=== PATIENT | male | born 1955 | race Caucasian/White ===

== ENCOUNTER 2016-08-05 22:52 | Inpatient (IN) | payer OTHER ==
[~2016-08-05] VITALS: Ht 152.4 cm; Wt 56.9 kg
[~2016-08-05 22:52] MED LIST: ALBU8I INH; ATOR40TA49 PO; DILT31TA PO; FURO20 PO; GLUCTAB PO; LISI-360 PO; MELO15TA2 PO; PRIL40CA PO
[2016-08-05 22:54] VITALS: BP 179/87; PULSE 82; RESP 16; TEMP 98.1; O2SAT 97
[2016-08-06] VITALS (12 sets, daily range): BP systolic 131–201; BP diastolic 69–95; PULSE 70–100; RESP 16–20; TEMP 97.1–98.7; O2SAT 88–100
[2016-08-06] MEDS ORDERED: HYDR-3516 PO (02:26)
[2016-08-06] MEDS ORDERED: LISI10TA3 PO (02:26)
[2016-08-06] MEDS ORDERED: MELO-1 PO (02:26)
[2016-08-06] MEDS ORDERED: DILT30TA PO (02:26)
[2016-08-06] MEDS ORDERED: METF500T PO (02:26)
[2016-08-06] MEDS ORDERED: OMEP40CA2 PO (02:26)
[2016-08-06] MEDS ORDERED: FURO20TA PO (02:26)
[2016-08-06] MEDS ORDERED: ATOR40TA16 PO (02:26)
[2016-08-06] MEDS ORDERED: SODIUM CHLORIDE 0.9% FLUSH 10 ML FLUSH IV FLUSH PRN (03:00)
[2016-08-06] MEDS ORDERED: ONDANSETRON HCL 4 MG/2 ML VIAL IVP ONE (03:00)
[2016-08-06] MEDS ORDERED: HYDROmorphone HCL PF 1 MG/ML VIAL IVS ONE (03:00)
[2016-08-06] MEDS: SODIUM CHLOR 0.9% 1000 ML INJ 1,000 ML IV SCH ×4 (03:13→20:15)
[2016-08-06 03:21] LABS: AUTOMATED NEUTROPHIL # 6.9 TH/MM3 (1.8-7.7); BASOPHIL % 0.6 % (0.0-2.0); EOSINOPHIL # 0.1 TH/MM3 (0-0.4); EOSINOPHIL % 0.8 % (0.0-4.0); HEMATOCRIT 36.1 % (39.0-51.0); HEMO FLAGS DIFF FINAL; LYMPH % 8.2 % (9.0-44.0); LYMPHOCYTE # 0.7 TH/MM3 (1.0-4.8); MEAN CELL VOLUME 88.9 FL (80.0-100.0); MEAN CORPUSCULAR HEMOGLOBIN 29.8 PG (27.0-34.0); MEAN CORPUSCULAR HGB CONC 33.5 % (32.0-36.0); MONO % 5.4 % (0.0-8.0); PLATELET COUNT 243 TH/MM3 (150-450); RED BLOOD COUNT 4.07 MIL/MM3 (4.50-5.90); RED CELL DISTRIBUTION WIDTH 13.4 % (11.6-17.2); WHITE BLOOD COUNT 8.1 TH/MM3 (4.0-11.0)
--- NOTE | 2016-08-06 03:34 | RADRPT ---
EXAM DATE/TIME: 08/06/2016 03:16 [facility] COMPARISON: No previous studies available for comparison. INDICATIONS : Diffuse abdominal pain. ORAL CONTRAST: No oral contrast ingested. RADIATION DOSE: 6.14 CTDIvol (mGy) MEDICAL HISTORY : Congestive heart failure. Chronic obstructive pulmonary disease. Gastroesophageal reflux disease.[place] rectal cancer. Diabetes. SURGICAL HISTORY : Discectomy. Bowel resection. ENCOUNTER: Initial ACUITY: 1 day PAIN SCALE: 6/10 LOCATION: Bilateral abdomen TECHNIQUE: Volumetric scanning of the abdomen and pelvis was performed. Using automated exposure control and ad justment of the mA and/or kV according to patient size, radiation dose was kept as low as reasonably achievable to obtain optimal diagnostic quality images. FINDINGS: LOWER LUNGS: The visualized lower lungs are clear. LIVER: Homogeneous density without lesion. There is no dilation of the biliary tree. No calcified gallston es. SPLEEN: Normal size without lesion. PANCREAS: Within normal limits. KIDNEYS: Normal in size and shape. There is no mass, stone, or hydronephrosis on the left. Nonobstructing 2-3 mm calculus upper pole right kidney. No hydronephrosis on the right. ADRENAL GLANDS: Within normal limits. VASCULAR: There is no aortic aneurysm. BOWEL/MESENTERY: Scattered diverticulosis of the descending and sigmoid colon without diverticulitis. There is wall th ickening of some small bowel loops within the upper abdomen with some inflammatory changes. Anastomot ic sutures are seen within the right abdomen. There is no free intraperitoneal air or fluid. ABDOMINAL WALL: Within normal limits. RETROPERITONEUM: There is no lymphadenopathy. BLADDER: No wall thickening or mass. REPRODUCTIVE: Calcification of prostate gland and seminal vesicles. INGUINAL: There is no lymphadenopathy or hernia. MUSCULOSKELETAL: Within normal limits for patient age. CONCLUSION: 1. Wall thickening of multiple small bowel loops with inflammatory changes. No perforation or abscess . 2. Diverticulosis of the descending and sigmoid colon without diverticulitis. 3. Punctate nonobstructing right-sided renal calculus. Hari Frances MD on August 06, 2016 at 3:29 Board Certified Radiologist. This report was verified electronically.
[2016-08-06 03:36] LABS: ALKALINE PHOSPHATASE 67 U/L (45-117); TOTAL BILIRUBIN ADULT 0.2 MG/DL (0.2-1.0)
[2016-08-06 03:42] LABS: ALT (GPT) 25 U/L (12-78); ANION GAP 5 MEQ/L (5-15); AST (GOT) 15 U/L (15-37); BLOOD UREA NITROGEN 28 MG/DL (7-18); CHLORIDE 109 MEQ/L (98-107); GLOMERULAR FILTRATION RATE 50 ML/MIN (>89); SODIUM (NA) 138 MEQ/L (136-145)
--- NOTE | 2016-08-06 03:47 | PD ---
HPI Chief Complaint: Abdominal Pain Time Seen by Provider: 02:51 Travel History International Travel<30 days: No Contact w/Intl Traveler<30days: No Traveled to known affect area: No History of Present Illness HPI Patient 61 years old. He complains of abdominal pain for about 1 day. It is constant. It has a sharp quality. There has been nausea. No vomiting. No diarrhea. He denies fever. His appetite has been decreased. 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 He took Dulcolax which made no difference. He states he has had a bowel movement in the last day, a couple. He denies flatus. He is a history of colon cancer. He reports his most recent colonoscopy/upper GI was normal. PFS Past Medical History Asthma: No Blood Disorders: No Anxiety: No Depression: Yes Heart Rhythm Problems: No Cancer: Yes (COLON CA) Cardiac Catheterization: No Cardiovascular Problems: Yes (CHF) High Cholesterol: Yes Chemotherapy: No Chest Pain: No Congestive Heart Failure: Yes COPD: Yes Diabetes: Yes Endocrine: No Gastrointestinal Disorders: Yes (HX OF COLON CANCER) GERD: Yes Genitourinary: No Hypertension: Yes Neurologic: No Reproductive: No Respiratory: Yes (COPD) Radiation Therapy: No Sleep Apnea: No Thyroid Disease: No Influenza Vaccination: No Past Surgical History Abdominal Surgery: Yes (bowel resection 2000) Body Medical Devices: RIGHT KNEE RANDY Family History Family Myocardial Infarction: Yes Social History Alcohol Use: No Tobacco Use: No Substance Use: No Allergies-Medications (Allergen,Severity, Reaction): Coded Allergies: Contrast Media (Verified Allergy, Severe, 08/06/16) Iohexol (OMNIPAQUE) (Unverified Allergy, Severe, 08/06/16) Morphine (Verified Allergy, Severe, 08/06/16) Reported Meds & Prescriptions Reported Meds & Active Scripts Active Reported Hydrocodone-Acetaminophen 5-325 mg Tab 1 Tab PO Q6H PRN Omeprazole 40 Mg Cap 40 Mg PO DAILY Atorvastatin (Atorvastatin Calcium) 40 Mg Tab 40 Mg PO HS Diltiazem (Diltiazem HCl) 30 Mg Tab 30 Mg PO TID Lisinopril 10 Mg Tab 10 Mg PO DAILY Furosemide 20 Mg Tab 20 Mg PO DAILY Metformin (Metformin HCl) 500 Mg Tab 500 Mg PO DAILY With a meal Meloxicam 15 Mg Tab 15 Mg PO DAILY Review of Systems Except as stated in HPI: all other systems reviewed are Neg Physical Exam Narrative GENERAL: 61-year-old male pleasant mild distress SKIN: Focused skin assessment warm/dry. HEAD: Atraumatic. Normocephalic. EYES: Pupils equal and round. No scleral icterus. No injection or drainage. ENT: No nasal bleeding or discharge. Mucous membranes pink and moist. NECK: Trachea midline. No JVD. CARDIOVASCULAR: Regular rate and rhythm. No murmur appreciated. RESPIRATORY: No accessory muscle use. Clear to auscultation. Breath sounds equal bilaterally. GASTROINTESTINAL: Diffuse tenderness. Minimal distention in the epigastrium. MUSCULOSKELETAL: No obvious deformities. No clubbing. No cyanosis. No edema. NEUROLOGICAL: Awake and alert. No obvious cranial nerve deficits. Motor grossly within normal limits. Normal speech. PSYCHIATRIC: Appropriate mood and affect; insight and judgment normal. Data Data Last Documented VS Vital Signs Date Time Temp Pulse Resp B/P Pulse Ox O2 Delivery O2 Flow Rate FiO2 08/06/16 02:27 84 16 201/95 99 Room Air 08/05/16 22:54 98.1 Vital signs reviewed Orders Complete Blood Count With Diff (08/06/16 02:58) Comprehensive Metabolic Panel (08/06/16 02:58) Lipase (08/06/16 02:58) Ct Abd/Pel W/O Iv Contrast (08/06/16 02:58) Iv Access Insert/Monitor (08/06/16 02:58) Ecg Monitoring (08/06/16 02:58) Oximetry (08/06/16 02:58) Ondansetron Inj (Zofran Inj) (08/06/16 03:00) Sodium Chlor 0.9% 1000 Ml Inj (Ns 1000 M (08/06/16 02:58) Sodium Chloride 0.9% Flush (Ns Flush) (08/06/16 03:00) Hydromorphone Pf Inj (Dilaudid Pf Inj) (08/06/16 03:00) Calcium Gluconate Inj (Calcium Gluconate (08/06/16 04:00) Insulin Human Regular Inj (Novolin R Inj (08/06/16 04:00) Dextrose 50% In Henrry (Vial) Inj (D50w (Vi (08/06/16 04:00) Sodium Bicarbonate 8.4% Inj (Sodium Bica (08/06/16 04:00) Sodium Polysty Sulfate Liq (Kayexalate L (08/06/16 04:00) Electrocardiogram (08/06/16 ) Piperacil-Tazo 3.375 Gm Premix (Zosyn 3. (08/06/16 04:00) Admit Order (Ed Use Only) (08/06/16 04:12) Labs Laboratory Tests Test 08/06/16 03:13 White Blood Count 8.1 TH/MM3 Red Blood Count 4.07 MIL/MM3 Hemoglobin 12.1 GM/DL Hematocrit 36.1 % Mean Corpuscular Volume 88.9 FL Mean Corpuscular Hemoglobin 29.8 PG Mean Corpuscular Hemoglobin 33.5 % Concent Red Cell Distribution Width 13.4 % Platelet Count 243 TH/MM3 Mean Platelet Volume 7.3 FL Neutrophils (%) (Auto) 85.0 % Lymphocytes (%) (Auto) 8.2 % Monocytes (%) (Auto) 5.4 % Eosinophils (%) (Auto) 0.8 % Basophils (%) (Auto) 0.6 % Neutrophils # (Auto) 6.9 TH/MM3 Lymphocytes # (Auto) 0.7 TH/MM3 Monocytes # (Auto) 0.4 TH/MM3 Eosinophils # (Auto) 0.1 TH/MM3 Basophils # (Auto) 0.0 TH/MM3 CBC Comment DIFF FINAL Differential Comment Sodium Level 138 MEQ/L Potassium Level 6.0 MEQ/L Chloride Level 109 MEQ/L Carbon Dioxide Level 24.0 MEQ/L Anion Gap 5 MEQ/L Blood Urea Nitrogen 28 MG/DL Creatinine 1.43 MG/DL Estimat Glomerular Filtration 50 ML/MIN Rate Random Glucose 143 MG/DL Calcium Level 9.3 MG/DL Total Bilirubin 0.2 MG/DL Aspartate Amino Transf 15 U/L (AST/SGOT) Alanine Aminotransferase 25 U/L (ALT/SGPT) Alkaline Phosphatase 67 U/L Total Protein 6.7 GM/DL Albumin 3.4 GM/DL Lipase 223 U/L [facility] Medical Decision Making Medical Screen Exam Complete: Yes Emergency Medical Condition: Yes Medical Record Reviewed: Yes Differential Diagnosis Constipation, Gastritis, Acute Cholecystitis, Biliary Colic, Pancreatitis, [place] , Hepatitis, Bowel Obstruction, Cystitis, Mesenteric Ischemia, AAA, Appendicitis , Renal Stone/Hydronephrosis, GERD, perforated viscous Narrative Course CBC & BMP Diagram 08/06/16 03:13 LFTs normal Lipase normal Last 24 hours Impressions Abdomen/Pelvis CT 08/06/16 0258 Signed Impressions: Service Date/Time: Saturday, August 06, 2016 03:16 - CONCLUSION: 1. Wall thickening of multiple small bowel loops with inflammatory changes. No perforation or abscess. 2. Diverticulosis of the descending and sigmoid colon without diverticulitis. 3. Punctate nonobstructing right-sided renal calculus. Hair Frances MD Zosyn started. IV fluids. Ventral, antiemetics. Discussed with Dr. Mojica for [facility]. Diagnosis Primary Impression: Enteritis Additional Impressions: Abdominal pain Hyperkalemia Admitting Information Admitting Physician Requests: Admit Ted Lucia MD Aug 06, 2016 03:47
[2016-08-06] MEDS ORDERED: SODIUM BICARBONATE 8.4% SOLN 50 MEQ/50 ML VIAL SLOW IVP ONE (04:00)
[2016-08-06] MEDS ORDERED: CALCIUM GLUCONATE 10% 1 GM/10 ML VIAL SLOW IVP ONE (04:00)
[2016-08-06] MEDS ORDERED: DEXTROSE 50% IN WATER 50 ML VIAL(D50) IV PUSH ONE (04:00)
[2016-08-06] MEDS ORDERED: PIPERACIL-TAZO 3.375 GM PREMIX 50 ML IV ONE (04:00)
[2016-08-06] MEDS ORDERED: SODIUM POLYSTYRENE SULFONATE SUSP 15 GM/60 ML CUP PO ONE (04:00)
[2016-08-06] MEDS ORDERED: INSULIN HUMAN REGULAR 1,000 UNITS/10 ML VIAL IV PUSH ONE (04:00)
[2016-08-06] MEDS ORDERED: SODIUM CHLORIDE 0.9% FLUSH 10 ML FLUSH IVF PRN (04:30)
[2016-08-06] MEDS ORDERED: HYDROmorphone HCL PF 1 MG/ML VIAL IV PUSH ONE (05:00)
[2016-08-06] MEDS ORDERED: ACETAMINOPHEN 325 MG TAB PO PRN (08:45)
[2016-08-06] MEDS ORDERED: ONDANSETRON HCL 4 MG/2 ML VIAL IV PRN (08:45)
[2016-08-06] MEDS: SODIUM CHLORIDE 0.9% FLUSH 10 ML FLUSH IV FLUSH SCH ×2 (09:00→20:54)
[2016-08-06] MEDS ORDERED: HYDROmorphone HCL PF 1 MG/ML VIAL IV PUSH PRN (09:45)
[2016-08-06] MEDS: DILTIAZEM HCL 30 MG TAB PO SCH ×3 (10:00→18:08)
--- NOTE | 2016-08-06 10:09 | HHI.HP ---
HPI Service [facility] Hospitalists Primary Care Physician Son Hall DO Admission Diagnosis Enteritis, HyperK, N/V Chief Complaint: Abdominal pain Travel History International Travel<30 Days: No Contact w/Intl Traveler <30 Da: No Traveled to Known Affected Are: No History of Present Illness Mr. Iglesias is a pleasant 61 y/o WM with HTN, diabetes, chronic back pain, COPD , WILL and hx of colon cancer. He presented to the ED at [facility] on 08/06/16 with complaints of intractable abdominal pain. He states that the pain began on 08/04/16, and began in the lower abdomen, cramping type pain. He states that he was able to work on Saturday but that the pain progressively worsened throughout the day. Yesterday he states that he stayed in bed most of the day because of the pain. He states that the pain seems to come in waves and has associated nausea but no vomiting. He has been having normal BMs. He took a Dulcolax yesterday thinking that he maybe had some degree of constipation and he did have a BM yesterday but that did not relieve the pain. His labs in the ED noted potassium 6.0, Cr 1.43. He was given Kayexalate in the ED. CT abdomen/ pelvis noted wall thickening of multiple small bowel loops with inflammatory changes, no perforation or abscess, diverticulosis of the descending and sigmoid colon without diverticulitis, and punctate nonobstructing right-sided renal calculus. Review of Systems Constitutional: DENIES: Fever, Weight gain, Weight loss, Chills Respiratory: DENIES: Cough, Shortness of breath Cardiovascular: DENIES: Chest pain, Palpitations Gastrointestinal: COMPLAINS OF: Abdominal pain, Nausea, DENIES: Black stools, Bloody stools, Constipation, Diarrhea, Vomiting Genitourinary: DENIES: Hematuria, Dysuria Integumentary: DENIES: Rash Neurologic: DENIES: Headache Past Family Social History Past Medical History HTN Diabetes WILL COPD Hyperlipidemia Chronic back pain Past Surgical History Partial colectomy, ascending colon in 2000 Back discectomy Knee surgeries Should arthroscopies EGD/colonoscopy on 04/09/[address] Burdick --> Short segment Barretts esophagus, acute gastritis, evidence of prior ileocolonic surgical anastomosis, grade II internal hemorrhoids, external hemorrhoids Reported Medications -Hydrocodone-Acetaminophen 5-325 mg Tab 1 Tab PO Q6H PRN -Omeprazole 40 Mg Cap 40 Mg PO DAILY -Atorvastatin (Atorvastatin Calcium) 40 Mg Tab 40 Mg PO HS -Diltiazem (Diltiazem HCl) 30 Mg Tab 30 Mg PO TID -Lisinopril 10 Mg Tab 10 Mg PO DAILY -Furosemide 20 Mg Tab 20 Mg PO DAILY -Metformin (Metformin HCl) 500 Mg Tab 500 Mg PO DAILY With a meal -Meloxicam 15 Mg Tab 15 Mg PO DAILY Allergies: Coded Allergies: Contrast Media (Verified Allergy, Severe, 08/06/16) Iohexol (OMNIPAQUE) (Unverified Allergy, Severe, 08/06/16) Morphine (Verified Allergy, Severe, 08/06/16) Family History Noncontributory Social History Hx of tobacco use Denies any alcohol or illicit drug use Pt works for an [employer] Physical Exam Vital Signs Vital Signs Date Time Temp Pulse Resp B/P Pulse Ox O2 Delivery O2 Flow Rate FiO2 08/06/16 09:27 100 Room Air 08/06/16 07:50 98.7 83 20 144/69 99 Room Air 08/06/16 06:34 100 16 131/81 100 Room Air 08/06/16 05:30 96 21 08/06/16 02:27 84 16 201/95 99 Room Air 08/05/16 22:54 98.1 82 16 179/87 97 Room Air Physical Exam GENERAL: This is a well-nourished, well-developed patient, in no apparent distress. HEENT: Atraumatic. Normocephalic. No temporal or scalp tenderness. No scleral icterus. Airway patent. NECK: Trachea midline, nontender. CARDIO: Regular. RESP: CTA ABD: +BS, firm, distended, diffusely tender. EXT: Extremities without clubbing, cyanosis, or edema. NEURO: Awake and alert. Motor and sensory grossly within normal limits. Normal speech. Laboratory Laboratory Tests Test 08/06/16 03:13 White Blood Count 8.1 Red Blood Count 4.07 Hemoglobin 12.1 Hematocrit 36.1 Mean Corpuscular Volume 88.9 Mean Corpuscular Hemoglobin 29.8 Mean Corpuscular Hemoglobin 33.5 Concent Red Cell Distribution Width 13.4 Platelet Count 243 Mean Platelet Volume 7.3 Neutrophils (%) (Auto) 85.0 Lymphocytes (%) (Auto) 8.2 Monocytes (%) (Auto) 5.4 Eosinophils (%) (Auto) 0.8 Basophils (%) (Auto) 0.6 Neutrophils # (Auto) 6.9 Lymphocytes # (Auto) 0.7 Monocytes # (Auto) 0.4 Eosinophils # (Auto) 0.1 Basophils # (Auto) 0.0 CBC Comment DIFF FINAL Differential Comment Sodium Level 138 Potassium Level 6.0 Chloride Level 109 Carbon Dioxide Level 24.0 Anion Gap 5 Blood Urea Nitrogen 28 Creatinine 1.43 Estimat Glomerular Filtration 50 Rate Random Glucose 143 Calcium Level 9.3 Total Bilirubin 0.2 Aspartate Amino Transf 15 (AST/SGOT) Alanine Aminotransferase 25 (ALT/SGPT) Alkaline Phosphatase 67 Total Protein 6.7 Albumin 3.4 Lipase 223 Result Diagram: 08/06/1631208/06/16312 Imaging Last Impressions Abdomen/Pelvis CT 08/06/16 0258 Signed Impressions: Service Date/Time: Saturday, August 06, 2016 03:16 - CONCLUSION: 1. Wall thickening of multiple small bowel loops with inflammatory changes. No perforation or abscess. 2. Diverticulosis of the descending and sigmoid colon without diverticulitis. 3. Punctate nonobstructing right-sided renal calculus. Hair Frances MD Septic Shock Reassessment Heart: Regular rate and rhythm Lungs: Clear Skin: Warm Assessment and Plan Problem List: (1) Abdominal pain Status: Acute Plan: - Pt admitted with progressively worsening abdominal pain and nausea than began on 08/04. - CT abd/pelvis W/O IV contrast (08/06) --> Wall thickening of multiple small bowel loops with inflammatory changes. No perforation or abscess. Diverticulosis of the descending and sigmoid colon without diverticulitis. Punctate nonobstructing right-sided renal calculus. - Pt denies any vomiting, diarrhea, melena, or BRBPR. - He denies any recent travel, ill contacts, or eating any unusual foods. - On examination pts abdomen is quite distended and tender throughout with minimal palpation. - He was given a dose of Zosyn in the ED and we will continue this. - Consult General surgery - IVF - Clear liquid diet as tolerated - Pain control PRN - Monitor vitals closely - Supportive care - DVT prophylaxis with SCDs (2) Enteritis Status: Acute Plan: - See above. (3) Hyperkalemia Status: Acute Plan: - Pt was noted to have a potassium of 6.0 at admission. - He was given Kayexalate in the ED - Repeat BMP today - Hold Lisinopril and Lasix today (4) Benign hypertension Status: Chronic Plan: - Cont. Cardizem - Monitor (5) Diabetes mellitus type 2, noninsulin dependent Status: Chronic Plan: - NovoLog SSI - Accu checks (6) History of colon cancer Status: Resolved Plan: - Pt had colon cancer in 2000 s/p partial colectomy - Last EGD and colonoscopy was in 03/2016 (7) Hyperlipidemia Status: Chronic Assessment and Plan Patient examined. Assessment and plan formulated with Rosario Davis PA-C. I agree with the above. Rosario Davis Aug 06, 2016 10:09 Frankie Read DO Aug 09, 2016 11:25
[2016-08-06] MEDS: PANTOPRAZOLE SOD 40 MG DELAYED RELEASE TAB PO SCH (10:21)
[2016-08-06] MEDS ORDERED: PIPERACIL-TAZO 3.375 GM PREMIX 50 ML IV SCH (11:00)
[2016-08-06] MEDS: INSULIN ASPART SUPPLEMENTAL SCALE SQ SCH ×3 (11:00→21:00)
[2016-08-06] MEDS ORDERED: ONDANSETRON HCL 4 MG/2 ML VIAL IV PUSH ONE (11:45)
[2016-08-06] MEDS: ACETAMINOPHEN/HYDROcodone 325 MG/5 MG TAB PO PRN ×2 (12:35→19:27)
[2016-08-06] MEDS ORDERED: IOHEXOL 350 MG/ML 10 ML VIAL (for RAD DIAG) IV ONE (13:49)
--- NOTE | 2016-08-06 14:17 | RADRPT ---
EXAM DATE/TIME: 08/06/2016 13:23 [facility] COMPARISON: CT ABDOMEN & PELVIS W/O CONTRAST, August 06, 2016, 3:16. INDICATIONS : Abdomen pain; evaluate for mesenteric ischemia. IV CONTRAST: 100 cc Omnipaque 350 (iohexol) IV ORAL CONTRAST: No oral contrast ingested. RADIATION DOSE: 14.70 CTDIvol (mGy) MEDICAL HISTORY : Cardiovascular disease. Hypertension. Diabetes mellitus type 2.Colon cancer. SURGICAL HISTORY : Colon resection. ENCOUNTER: Initial ACUITY: 1 day PAIN SCALE: 0/10 LOCATION: Bilateral lower quadrant TECHNIQUE: Volumetric scanning was performed using a multi-row detector CT scanner. The data was post processed with a variety of visualization algorithms including full volume maximum intensity projection, multi -planar sliding thin slab reformation, curved planar reformation, and surface rendering techniques. Using automated exposure control and adjustment of the mA and/or kV according to patient size, radiat ion dose was kept as low as reasonably achievable to obtain optimal diagnostic quality images. FINDINGS: AORTA/INFLOW: Mild scattered calcified atheromatous plaque is seen throughout the aorta and inflow vessels. No aneu rysmal change, hemodynamically significant stenosis, or dissection. The celiac, SMA, KALA, and renal a rteries are patent. OTHER STRUCTURES: There is mural thickening and stranding of the adjacent mesentery involving multiple small bowel loop s within the anterior mid abdomen and upper abdomen. No dilatation to suggest an obstructing componen t. A trace amount of free fluid adjacent to the spleen and right lobe of the liver. The colon is unre markable with the exception of a few scattered diverticuli. A 2 mm nonobstructing right renal stone. Calcifications are seen involving the central portion of the prostate gland. No discrete mass. Degene rative changes involving the hips and lumbar spine. CONCLUSION: 1. Patent mesenteric vessels. 2. Wall thickening and inflammatory change involving multiple loops of small bowel without perforatio n, abscess, or obstruction. A trace amount of ascites. 3. 2 mm nonobstructing right renal stone. Tad Hyatt Jr., MD on August 06, 2016 at 14:06 Board Certified Radiologist. This report was verified electronically.
[2016-08-06] MEDS ORDERED: DIATRIZOATE MEGLUM/DIATRIZOATE SOD 120 ML BTL (for RAD DIAG) PO ONE (17:11)
--- NOTE | 2016-08-06 17:30 | PD.CONS ---
HPI Service [facility] general surgery Consult Requested By Dr. Read Reason for Consult Abdominal pain, bowel wall thickening Primary Care Physician Son Hall, History of Present Illness This is a 69-year-old male who developed acute onset of somewhat diffuse lower abdominal pain on Saturday which was associated with nausea. This continued to worsen and Saturday was so severe he presented to the emergency department. He has not had vomiting. No recent history of diarrhea. He had bowel movements up until Saturday. The patient had a right colectomy by Dr. Fong in 2000 for colon cancer. He has never had any episodes like this before. He had a colonoscopy in 2016 which by patient report was unremarkable. On evaluation in the emergency department last night he was noted to have acute kidney injury, normal white blood count with left shift, and CT scan of the abdomen and pelvis showed wall thickening of multiple loops of small bowel. He was admitted and placed on IV antibiotics. He feels about the same today. He continues not to have any emesis. He did have 1 small episode of flatus. He was quite tender on exam and therefore Dr. Read consulted me for further evaluation. Review of Systems Constitutional: DENIES: Fever, Chills Eyes: DENIES: Eye inflammation, Eye pain Respiratory: DENIES: Cough, Shortness of breath Cardiovascular: DENIES: Chest pain Gastrointestinal: COMPLAINS OF: Abdominal pain, Nausea, DENIES: Diarrhea Integumentary: DENIES: Pruritus, Rash Neurologic: DENIES: Paresthesias, Seizures Past Family Social History Past Medical History Hypertension Diabetes mellitus Chronic back pain COPD Obstructive sleep apnea Colon cancer in 2000 Past Surgical History Ascending colectomy Back and knee operations Reported Medications Reported Meds & Active Scripts Active Reported Hydrocodone-Acetaminophen 5-325 mg Tab 1 Tab PO Q6H PRN Omeprazole 40 Mg Cap 40 Mg PO DAILY Atorvastatin (Atorvastatin Calcium) 40 Mg Tab 40 Mg PO HS Diltiazem (Diltiazem HCl) 30 Mg Tab 30 Mg PO TID Lisinopril 10 Mg Tab 10 Mg PO DAILY Furosemide 20 Mg Tab 20 Mg PO DAILY Metformin (Metformin HCl) 500 Mg Tab 500 Mg PO DAILY With a meal Meloxicam 15 Mg Tab 15 Mg PO DAILY Allergies: Coded Allergies: Contrast Media (Verified Allergy, Severe, 08/06/16) Iohexol (OMNIPAQUE) (Unverified Allergy, Severe, 08/06/16) Morphine (Verified Allergy, Severe, 08/06/16) Active Ordered Medications Current Medications Medications (Trade) Dose Ordered Sig/Adela Route Start Time Stop Time Status Last Admin (NS Flush) 2 ml BID IV FLUSH 08/06/16 09:00 (NS Flush) 2 ml UNSCH PRN IVF 08/06/16 04:30 (Tylenol) 650 mg Q4H PRN PO 08/06/16 08:45 (Zofran Inj) 4 mg Q6H PRN IV 08/06/16 08:45 (Lipitor) 40 mg HS PO 08/06/16 21:00 (Cardizem) 30 mg TID PO 08/06/16 10:00 08/06/16 13:43 (Protonix) 40 mg DAILY PO 08/06/16 10:00 08/06/16 10:21 ([place] 5-325 Mg) 1 tab Q4H PRN PO 08/06/16 09:45 ([place] 5-325 Mg) 2 tab Q4H PRN PO 08/06/16 09:45 08/06/16 12:35 Hydromorphone HCl 0.5 mg 0.5 mg Q4H PRN IV PUSH 08/06/16 09:45 08/06/16 10:20 Sodium Chloride 1,000 ml @ 100 mls/hr Q10H IV 08/06/16 10:15 08/06/16 10:15 Metronidazole 100 ml @ 100 mls/hr Q6H IV 08/06/16 18:00 (Levaquin 750 Mg Premix Inj) 150 ml @ 100 mls/hr Q48H IV 08/06/16 17:00 Family History Noncontributory Social History No alcohol or drug use. Physical Exam Vital Signs Vital Signs Date Time Temp Pulse Resp B/P Pulse Ox O2 Delivery O2 Flow Rate FiO2 08/06/16 13:01 80 20 150/78 96 Room Air 08/06/16 12:07 81 20 139/71 100 Room Air 08/06/16 10:28 86 20 140/76 88 Room Air 08/06/16 09:35 76 20 143/78 96 Room Air 08/06/16 09:27 100 Room Air 08/06/16 07:50 98.7 83 20 144/69 99 Room Air 08/06/16 06:34 100 16 131/81 100 Room Air 08/06/16 05:30 96 21 08/06/16 02:27 84 16 201/95 99 Room Air 08/05/16 22:54 98.1 82 16 179/87 97 Room Air Physical Exam GENERAL: Awake and alert. No acute distress. Cooperative. HEAD: Normocephalic. Atraumatic. EYES: Pupils equal round and reactive to light bilaterally. No scleral icterus. ENT: Moist oral mucosa. NECK: Trachea midline. CHEST: Lungs clear to auscultation bilaterally with no wheezing or rhonchi. No respiratory distress. CARDIOVASCULAR: Regular rate and rhythm. ABDOMEN: Round. Well-healed transverse upper abdominal incision. Diffuse tenderness moderate to severe. Diffuse rebound. EXTREMITIES: No cyanosis or edema. SKIN: Warm, dry, nonjaundiced. Laboratory Laboratory Tests Test 08/06/16 03:13 White Blood Count 8.1 Red Blood Count 4.07 Hemoglobin 12.1 Hematocrit 36.1 Mean Corpuscular Volume 88.9 Mean Corpuscular Hemoglobin 29.8 Mean Corpuscular Hemoglobin 33.5 Concent Red Cell Distribution Width 13.4 Platelet Count 243 Mean Platelet Volume 7.3 Neutrophils (%) (Auto) 85.0 Lymphocytes (%) (Auto) 8.2 Monocytes (%) (Auto) 5.4 Eosinophils (%) (Auto) 0.8 Basophils (%) (Auto) 0.6 Neutrophils # (Auto) 6.9 Lymphocytes # (Auto) 0.7 Monocytes # (Auto) 0.4 Eosinophils # (Auto) 0.1 Basophils # (Auto) 0.0 CBC Comment DIFF FINAL Differential Comment Sodium Level 138 Potassium Level 6.0 Chloride Level 109 Carbon Dioxide Level 24.0 Anion Gap 5 Blood Urea Nitrogen 28 Creatinine 1.43 Estimat Glomerular Filtration 50 Rate Random Glucose 143 Calcium Level 9.3 Magnesium Level 2.1 Total Bilirubin 0.2 Aspartate Amino Transf 15 (AST/SGOT) Alanine Aminotransferase 25 (ALT/SGPT) Alkaline Phosphatase 67 Total Protein 6.7 Albumin 3.4 Lipase 223 Result Diagram: 08/06/1631208/06/16312 Imaging Last Impressions Abdomen/Pelvis CT 08/06/16 0258 Signed Impressions: Service Date/Time: Saturday, August 06, 2016 03:16 - CONCLUSION: 1. Wall thickening of multiple small bowel loops with inflammatory changes. No perforation or abscess. 2. Diverticulosis of the descending and sigmoid colon without diverticulitis. 3. Punctate nonobstructing right-sided renal calculus. Hair Frances MD Assessment and Plan Assessment and Plan 61-year-old male with abdominal pain and multiple loops of small bowel thickening on CT abdomen and pelvis. He has acute kidney injury. CTA abdomen and pelvis was performed and his vasculature is patent. I discussed the imaging findings with Dr. Larry. The patient has no vomiting but my biggest concern is a closed loop obstruction. Also possible he may have enteritis. I will order a Gastrografin small bowel follow-through to see if he is obstructed and to see if any contrast passes the area of the mid small bowel which is thickened. I changed him to Levaquin and Flagyl. Due to his physical exam I will have a low threshold for operating. We'll follow-up labs and imaging in the morning. I discussed all the findings and my thought processes with the patient he understands and agrees. Daniel Lugo MD Aug 06, 2016 17:30
[2016-08-06] MEDS: LEVOFLOXACIN 750 MG PREMIX INJ 150 ML IV SCH (17:33)
[2016-08-06] MEDS: metroNIDAZOLE 500 MG INJ 100 ML IV SCH (20:58)
[2016-08-06] MEDS: ATORVASTATIN 40 MG TAB PO SCH (20:58)
--- NOTE | 2016-08-06 22:31 | RADRPT ---
EXAM DATE/TIME: 08/06/2016 17:08 [place] COMPARISON: CT ABDOMEN & PELVIS W/O CONTRAST, August 06, 2016, 3:16. INDICATIONS : Obstruction. FLUORO TIME: 0 minutes IMAGE COUNT: 6 CONTRAST: Gastroliz IMAGING TIME(S): 15 min, 1 hr, 4 hrs MEDICAL HISTORY : None. SURGICAL HISTORY : Colon resection. ENCOUNTER: Initial ACUITY: 3 days PAIN SCORE: 10/10 LOCATION: Bilateral abdomen. FINDINGS: Initial pharmacy helper film is unremarkable without air-filled dilated loops of small or large colon. Contrast transits the small intestine in inappropriate. Timing seen within the colon approximately 1 hour aft er ingestion. No small bowel obstruction is identified on this study. The multiple diffusely thickene d loops of small intestine identified on the CT done earlier same day are not well appreciated on the small bowel series due to the limits of this study, but likely are still present. CONCLUSION: No evidence of small bowel obstruction. Multiple diffusely thickened loops of small i ntestine identified on the CT done earlier same day are not well appreciated on the small bowel serie s due to the limits of this study, but likely are still present and suggest enteritis. Simon Marino MD on August 06, 2016 at 22:24 Board Certified Radiologist. This report was verified electronically.
[2016-08-07] VITALS (8 sets, daily range): BP systolic 107–167; BP diastolic 58–85; PULSE 70–85; RESP 16–20; TEMP 97.1–98.9; O2SAT 95–99
[2016-08-07] MEDS: metroNIDAZOLE 500 MG INJ 100 ML IV SCH ×5 (00:11→23:14)
[2016-08-07] MEDS: SODIUM CHLOR 0.9% 1000 ML INJ 1,000 ML IV SCH ×2 (06:14→16:15)
[2016-08-07] MEDS: INSULIN ASPART SUPPLEMENTAL SCALE SQ SCH ×4 (06:14→20:24)
[2016-08-07 06:16] LABS: AUTOMATED NEUTROPHIL # 3.9 TH/MM3 (1.8-7.7); BASOPHIL % 0.5 % (0.0-2.0); EOSINOPHIL # 0.3 TH/MM3 (0-0.4); EOSINOPHIL % 4.6 % (0.0-4.0); HEMATOCRIT 29.2 % (39.0-51.0); HEMO FLAGS DIFF FINAL; LYMPH % 19.2 % (9.0-44.0); LYMPHOCYTE # 1.1 TH/MM3 (1.0-4.8); MEAN CELL VOLUME 88.9 FL (80.0-100.0); MEAN CORPUSCULAR HEMOGLOBIN 30.9 PG (27.0-34.0); MEAN CORPUSCULAR HGB CONC 34.8 % (32.0-36.0); MONO % 7.2 % (0.0-8.0); NEUT % 68.5 % (16.0-70.0); PLATELET COUNT 185 TH/MM3 (150-450); RED BLOOD COUNT 3.29 MIL/MM3 (4.50-5.90); RED CELL DISTRIBUTION WIDTH 13.4 % (11.6-17.2); WHITE BLOOD COUNT 5.7 TH/MM3 (4.0-11.0)
[2016-08-07] MEDS: ACETAMINOPHEN/HYDROcodone 325 MG/5 MG TAB PO PRN ×3 (06:17→23:16)
[2016-08-07 06:40] LABS: BICARBONATE 26.2 MEQ/L (21.0-32.0); MAGNESIUM 1.7 MG/DL (1.5-2.5); POTASSIUM 5.3 MEQ/L (3.5-5.1)
--- NOTE | 2016-08-07 07:48 | HHI.PR ---
Subjective Subjective Notes Multiple liquid stools after gastrograffin for small bowel follow through. No nausea. Had some clears last night. Thinks pain may be a little better- he did not take narcotics all night. Objective Vitals/I&O Vital Signs Date Time Temp Pulse Resp B/P Pulse Ox O2 Delivery O2 Flow Rate FiO2 08/07/16 04:38 97.9 83 20 138/70 96 08/06/16 13:01 Room Air 08/06/16 05:30 21 Labs Laboratory Tests Test 08/07/16 05:45 White Blood Count 5.7 Red Blood Count 3.29 Hemoglobin 10.2 Hematocrit 29.2 Mean Corpuscular Volume 88.9 Mean Corpuscular Hemoglobin 30.9 Mean Corpuscular Hemoglobin 34.8 Concent Red Cell Distribution Width 13.4 Platelet Count 185 Mean Platelet Volume 7.0 Neutrophils (%) (Auto) 68.5 Lymphocytes (%) (Auto) 19.2 Monocytes (%) (Auto) 7.2 Eosinophils (%) (Auto) 4.6 Basophils (%) (Auto) 0.5 Neutrophils # (Auto) 3.9 Lymphocytes # (Auto) 1.1 Monocytes # (Auto) 0.4 Eosinophils # (Auto) 0.3 Basophils # (Auto) 0.0 CBC Comment DIFF FINAL Differential Comment Sodium Level 141 Potassium Level 5.3 Chloride Level 109 Carbon Dioxide Level 26.2 Anion Gap 6 Blood Urea Nitrogen 13 Creatinine 1.36 Estimat Glomerular Filtration 53 Rate Random Glucose 96 Calcium Level 8.5 Magnesium Level 1.7 Radiology Last Impressions Abdomen/Pelvis CT 08/06/16 0258 Signed Impressions: Service Date/Time: Saturday, August 06, 2016 03:16 - CONCLUSION: 1. Wall thickening of multiple small bowel loops with inflammatory changes. No perforation or abscess. 2. Diverticulosis of the descending and sigmoid colon without diverticulitis. 3. Punctate nonobstructing right-sided renal calculus. Hair Frances MD Narrative Exam NAD, sleeping in bed nonlabored breathing Abd: mild distention, diffuse ttp slightly better than yesterday A/P Assessment and Plan 61 yo M with abdominal pain and mid small bowel thickening. SBFT shows transit through small bowel and having liquid BMs now, so he does not have a closed loop obstruction. Likely enteritis. Consult GI for further evaluation. Clears. ParishDaniel MD Aug 07, 2016 07:48
[2016-08-07] MEDS: SODIUM CHLORIDE 0.9% FLUSH 10 ML FLUSH IV FLUSH SCH ×2 (09:00→20:21)
[2016-08-07] MEDS: PANTOPRAZOLE SOD 40 MG DELAYED RELEASE TAB PO SCH (09:01)
[2016-08-07] MEDS: DILTIAZEM HCL 30 MG TAB PO SCH ×3 (09:01→18:39)
--- NOTE | 2016-08-07 12:50 | EKG ---
Date Performed: 08/06/2016 Time Performed: 03:55:00 PTAGE: 61 years EKG: Sinus rhythm WITH SINUS ARRHYTHMIA NORMAL ECG PREVIOUS TRACING : 01/01/2015 17.34 Compared to prior tracing no significant change DOCTOR: Carlos Dinh Interpretating Date/Time 08/07/2016 12:49:39
--- NOTE | 2016-08-07 15:15 | PD.CONS ---
HPI History of Present Illness This is a 61 year old male with a hx of colon cancer requiring a partial colectomy in 2000, who came to the ER for evaluation of abdominal pain that began on Saturday. He describes this as a lower abdominal cramping pain/ stomach. He reports that he had a constant stomach ache with intermittent cramping that came in waves. He had some nausea, but no vomiting. He denies any fevers or chills. He reports that he has been moving his bowels, but did try a Dulcolax at home to see if this helped. He reports that he had a bowel movement, but his pain did not improve. He denies any decreased appetite prior to this or weight loss. He came to the ER and Abdomen/Pelvis CT (08/06/16) revealed 1. Wall thickening of multiple small bowel loops with inflammatory changes. No perforation or abscess. 2. Diverticulosis of the descending and sigmoid colon without diverticulitis. 3. Punctate nonobstructing right-sided renal calculus. He was started on antibiotics and General Surgery was consulted for further evaluation. A CTA of the abdomen and pelvis (08/06/16)---- > patent mesenteric vessels, wall thickening and inflammatory change involving multiple loops of small bowel without perforation, abscess, or obstruction. A trace amount of ascites. 2 mm nonobstructing right renal stone. Dr. Lugo discussed this with radiology a SBFT was ordered to evaluate for a closed loop obstruction. SBFT (08/06/16) revealed No evidence of small bowel obstruction. Multiple diffusely thickened loops of small intestine identified on the CT done earlier same day are not well appreciated on the small bowel series due to the limits of this study, but likely are still present and suggest enteritis. GI was consulted for further evaluation of enteritis. He denies any sick contacts , travel, suspicious food, or antibiotics use. He denies any similar symptoms in the past. 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 There is evidence of the prior ileocolonic surgical anastomosis, retroflex views revealed internal grade 2 hemorrhoids, a digital exam was performed and revealed medium external hemorrhoids. Pathology revealed gastric antral mucosa showing mild chronic inactive gastritis, negative for intestinal metaplasia and negative for Helicobacter, distal esophagus biopsy was squamocolumnar mucosa showing mild chronic esophagitis, negative for dysplasia. Repeat colonoscopy was recommended for 5 years. (Snow Magdaleno) PFSH Past Medical History COPD Diabetes Hyperlipidemia Hypertension Colon cancer status post partial colectomy 2000 WILL Chronic back pain Past Surgical History Partial colectomy for colon cancer Left knee surgery Lower back surgery Right shoulder surgery (Snow Magdaleno) Coded Allergies: Contrast Media (Verified Allergy, Severe, 08/06/16) Iohexol (OMNIPAQUE) (Unverified Allergy, Severe, 08/06/16) Morphine (Verified Allergy, Severe, 08/06/16) Medications Allergies Coded Allergies Type Severity Reaction Last Updated Verified Contrast Media Allergy Severe 08/06/16 Yes Iohexol (OMNIPAQUE) Allergy Severe 08/06/16 No Morphine Allergy Severe 08/06/16 Yes Active Scripts Medications Dose Route/Sig Days Date Category Dose Instructions Hydrocodone-Acetaminophen 5-325 mg Tab 1 Tab PO Q6H PRN 08/06/16 Reported Omeprazole 40 Mg Cap 40 Mg PO DAILY 08/06/16 Reported Atorvastatin (Atorvastatin Calcium) 40 Mg Tab 40 Mg PO HS 08/06/16 Reported Diltiazem (Diltiazem HCl) 30 Mg Tab 30 Mg PO TID 08/06/16 Reported Lisinopril 10 Mg Tab 10 Mg PO DAILY 08/06/16 Reported Furosemide 20 Mg Tab 20 Mg PO DAILY 08/06/16 Reported Metformin (Metformin HCl) 500 Mg Tab 500 Mg PO DAILY 08/06/16 Reported With a meal Meloxicam 15 Mg Tab 15 Mg PO DAILY 08/06/16 Reported Family History Sister had ovarian cancer Father had a CVA Social History Quit alcohol use about 3 years ago Quit smoking about 13 years ago (Snow Magdaleno) Review of Systems Constitutional: COMPLAINS OF: Fatigue, DENIES: Fever, Weight loss, Chills, Change in appetite Respiratory: DENIES: Cough Cardiovascular: DENIES: Chest pain Gastrointestinal: COMPLAINS OF: Abdominal pain, Nausea, Swelling of Abdomen ( mild), DENIES: Black stools, Bloody stools, Constipation, Diarrhea, Vomiting Musculoskeletal: COMPLAINS OF: Back pain Integumentary: DENIES: Rash Psychiatric: DENIES: Confusion (Snow Magdaleno) GI Exam Vitals I&O Vital Signs Date Time Temp Pulse Resp B/P Pulse Ox O2 Delivery O2 Flow Rate FiO2 08/07/16 12:06 97.8 74 16 167/85 95 08/07/16 08:28 98.2 80 16 145/79 95 08/07/16 07:17 16 08/07/16 04:38 97.9 83 20 138/70 96 08/07/16 00:40 98.9 76 20 107/58 96 08/07/16 00:30 97 08/06/16 21:09 78 08/06/16 19:22 97.7 70 20 134/70 97 08/06/16 17:46 97.1 77 16 154/78 97 I/O 08/06/16 08/06/16 08/06/16 08/07/16 08/07/16 08/07/16 07:00 15:00 23:00 07:00 15:00 23:00 Intake Total 293 ml Output Total 100 ml 425 ml Balance 293 ml -100 ml -425 ml Intake IV Total 293 ml Output Urine Total 100 ml 425 ml Imaging Last Impressions Abdomen/Pelvis CT 08/06/16 0258 Signed Impressions: Service Date/Time: Saturday, August 06, 2016 03:16 - CONCLUSION: 1. Wall thickening of multiple small bowel loops with inflammatory changes. No perforation or abscess. 2. Diverticulosis of the descending and sigmoid colon without diverticulitis. 3. Punctate nonobstructing right-sided renal calculus. Hair Frances MD Small Bowel X-Ray 08/06/16 0000 Signed Impressions: Service Date/Time: Saturday, August 06, 2016 17:08 - CONCLUSION: No evidence of small bowel obstruction. Multiple diffusely thickened loops of small intestine identified on the CT done earlier same day are not well appreciated on the small bowel series due to the limits of this study, but likely are still present and suggest enteritis. Simon Marino MD Laboratory Test 08/07/16 05:45 White Blood Count 5.7 TH/MM3 Red Blood Count 3.29 MIL/MM3 Hemoglobin 10.2 GM/DL Hematocrit 29.2 % Mean Corpuscular Volume 88.9 FL Mean Corpuscular Hemoglobin 30.9 PG Mean Corpuscular Hemoglobin 34.8 % Concent Red Cell Distribution Width 13.4 % Platelet Count 185 TH/MM3 Mean Platelet Volume 7.0 FL Neutrophils (%) (Auto) 68.5 % Lymphocytes (%) (Auto) 19.2 % Monocytes (%) (Auto) 7.2 % Eosinophils (%) (Auto) 4.6 % Basophils (%) (Auto) 0.5 % Neutrophils # (Auto) 3.9 TH/MM3 Lymphocytes # (Auto) 1.1 TH/MM3 Monocytes # (Auto) 0.4 TH/MM3 Eosinophils # (Auto) 0.3 TH/MM3 Basophils # (Auto) 0.0 TH/MM3 CBC Comment DIFF FINAL Differential Comment Sodium Level 141 MEQ/L Potassium Level 5.3 MEQ/L Chloride Level 109 MEQ/L Carbon Dioxide Level 26.2 MEQ/L Anion Gap 6 MEQ/L Blood Urea Nitrogen 13 MG/DL Creatinine 1.36 MG/DL Estimat Glomerular Filtration 53 ML/MIN Rate Random Glucose 96 MG/DL Calcium Level 8.5 MG/DL Magnesium Level 1.7 MG/DL Physical Examination HEENT: Normocephalic; atraumatic; no jaundice. CHEST: CTA CARDIAC: RRR. ABDOMEN: Soft, mildly distended, moderate diffuse tenderness, nontender; no hepatosplenomegaly; bowel sounds are present in all four quadrants. EXTREMITIES: No clubbing, cyanosis, or edema. SKIN: Normal; no rash; no jaundice. COTTON GINNER HELPER: No focal deficits; alert and oriented times three. (Snow Magdaleno) Assessment and Plan Plan ASSESSMENT: - Enteritis. 3-4 day hx of mild bloating, nausea without vomiting, and abdominal pain that began suddenly on Saturday. Abdomen/Pelvis CT (08/06/16) revealed 1. Wall thickening of multiple small bowel loops with inflammatory changes. No perforation or abscess. 2. Diverticulosis of the descending and sigmoid colon without diverticulitis. 3. Punctate nonobstructing right- sided renal calculus. CTA of the abdomen and pelvis (08/06/16)----> patent mesenteric vessels, wall thickening and inflammatory change involving multiple loops of small bowel without perforation, abscess, or obstruction. A trace amount of ascites. 2 mm nonobstructing right renal stone. Dr. Lugo discussed this with radiology a SBFT was ordered to evaluate for a closed loop obstruction. SBFT (3/27/17) revealed No evidence of small bowel obstruction. Multiple diffusely thickened loops of small intestine identified on the CT done earlier same day are not well appreciated on the small bowel series due to the limits of this study, but likely are still present and suggest enteritis. 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 There is evidence of the prior ileocolonic surgical anastomosis, retroflex views revealed internal grade 2 hemorrhoids, a digital exam was performed and revealed medium external hemorrhoids. Pathology revealed gastric antral mucosa showing mild chronic inactive gastritis, negative for intestinal metaplasia and negative for Helicobacter, distal esophagus biopsy was squamocolumnar mucosa showing mild chronic esophagitis, negative for dysplasia. Repeat colonoscopy was recommended for 5 years. GI was consulted for further evaluation of enteritis. DENIES sick contacts, travel, suspicious food, or antibiotics use. WBC 5.7. + BM- multiple liquid. Will get stool studies, cont. IVF. Flagyl, Levaquin - Anemia. 10.2/29.2. - CAIO, Hyperkalemia. Creat 1.36. K+ 5.3. - HTN, DM, Hyperlipidemia. Per primary - Hx colon cancer, s/p partial colectomy 2000. PLAN: - Clear liquids - Cont. PPI - Cont. Flagyl - Cont. Levaquin - Send stool for CDiff, C/S, O&P, WBC, Giardia - Monitor labs - Supportive care - Further recommendations to follow based on results of above - Pt seen and examined by Dr. Delgado and myself and this note is written on his behalf (Snow Magdaleno) Physician Comments Patient seen and examined Agree with above Continue with current supportive care Monitor labs Await stool studies (Eugene Delgado MD) Snow Magdaleno Aug 07, 2016 15:15 Eugene Delgado MD Aug 07, 2016 21:20
--- NOTE | 2016-08-07 15:47 | HHI.PR ---
Subjective Remarks Pt has less abdominal pain today No nausea/vomiting, tolerating some clear liquids. Pt is having liquid BMs Objective Vitals Vital Signs Date Time Temp Pulse Resp B/P Pulse Ox O2 Delivery O2 Flow Rate FiO2 08/07/16 15:27 97.1 85 18 162/81 99 08/07/16 12:06 97.8 74 16 167/85 95 08/07/16 08:28 98.2 80 16 145/79 95 08/07/16 07:17 16 08/07/16 04:38 97.9 83 20 138/70 96 08/07/16 00:40 98.9 76 20 107/58 96 08/07/16 00:30 97 08/06/16 21:09 78 08/06/16 19:22 97.7 70 20 134/70 97 08/06/16 17:46 97.1 77 16 154/78 97 08/06/16 08/06/16 08/07/16 15:00 23:00 07:00 Intake Total 293 ml Output Total 100 ml 425 ml Balance 293 ml -100 ml -425 ml Intake IV Total 293 ml Output Urine Total 100 ml 425 ml Result Diagram: 08/07/16 0545 08/07/16 0545 Other Results Laboratory Tests Test 08/06/16 08/07/16 03:13 05:45 White Blood Count 8.1 TH/MM3 5.7 TH/MM3 Red Blood Count 4.07 MIL/MM3 3.29 MIL/MM3 Hemoglobin 12.1 GM/DL 10.2 GM/DL Hematocrit 36.1 % 29.2 % Mean Corpuscular Volume 88.9 FL 88.9 FL Mean Corpuscular Hemoglobin 29.8 PG 30.9 PG Mean Corpuscular Hemoglobin 33.5 % 34.8 % Concent Red Cell Distribution Width 13.4 % 13.4 % Platelet Count 243 TH/MM3 185 TH/MM3 Mean Platelet Volume 7.3 FL 7.0 FL Neutrophils (%) (Auto) 85.0 % 68.5 % Lymphocytes (%) (Auto) 8.2 % 19.2 % Monocytes (%) (Auto) 5.4 % 7.2 % Eosinophils (%) (Auto) 0.8 % 4.6 % Basophils (%) (Auto) 0.6 % 0.5 % Neutrophils # (Auto) 6.9 TH/MM3 3.9 TH/MM3 Lymphocytes # (Auto) 0.7 TH/MM3 1.1 TH/MM3 Monocytes # (Auto) 0.4 TH/MM3 0.4 TH/MM3 Eosinophils # (Auto) 0.1 TH/MM3 0.3 TH/MM3 Basophils # (Auto) 0.0 TH/MM3 0.0 TH/MM3 CBC Comment DIFF FINAL DIFF FINAL Differential Comment Sodium Level 138 MEQ/L 141 MEQ/L Potassium Level 6.0 MEQ/L 5.3 MEQ/L Chloride Level 109 MEQ/L 109 MEQ/L Carbon Dioxide Level 24.0 MEQ/L 26.2 MEQ/L Anion Gap 5 MEQ/L 6 MEQ/L Blood Urea Nitrogen 28 MG/DL 13 MG/DL Creatinine 1.43 MG/DL 1.36 MG/DL Estimat Glomerular Filtration 50 ML/MIN 53 ML/MIN Rate Random Glucose 143 MG/DL 96 MG/DL Calcium Level 9.3 MG/DL 8.5 MG/DL Magnesium Level 2.1 MG/DL 1.7 MG/DL Total Bilirubin 0.2 MG/DL Aspartate Amino Transf 15 U/L (AST/SGOT) Alanine Aminotransferase 25 U/L (ALT/SGPT) Alkaline Phosphatase 67 U/L Total Protein 6.7 GM/DL Albumin 3.4 GM/DL Lipase 223 U/L Imaging Last Impressions Abdomen/Pelvis CT 08/06/16 0258 Signed Impressions: Service Date/Time: Saturday, August 06, 2016 03:16 - CONCLUSION: 1. Wall thickening of multiple small bowel loops with inflammatory changes. No perforation or abscess. 2. Diverticulosis of the descending and sigmoid colon without diverticulitis. 3. Punctate nonobstructing right-sided renal calculus. Hair Frances MD Small Bowel X-Ray 08/06/16 0000 Signed Impressions: Service Date/Time: Saturday, August 06, 2016 17:08 - CONCLUSION: No evidence of small bowel obstruction. Multiple diffusely thickened loops of small intestine identified on the CT done earlier same day are not well appreciated on the small bowel series due to the limits of this study, but likely are still present and suggest enteritis. Simon Marino MD Objective Remarks General: NAD, AAOx3 Chest: CTA Cardiac:Regular Abd: +BS, mildly distended, diffusely tender, voluntary guarding throughout Ext: No edema A/P Problem List: (1) Abdominal pain Status: Acute Plan: - Pt admitted with progressively worsening abdominal pain and nausea than began on 08/04. - CT abd/pelvis W/O IV contrast (08/06) --> Wall thickening of multiple small bowel loops with inflammatory changes. No perforation or abscess. Diverticulosis of the descending and sigmoid colon without diverticulitis. Punctate nonobstructing right-sided renal calculus. - Pt denies any vomiting, diarrhea, melena, or BRBPR. - At admission the pts physical examination indicated his abdomen was quite distended and tender throughout with minimal palpation. - General Surgery was consulted. - There was initially concern for possible mesenteric ischemia so CTA Abd/ pelvis was performed with noted patent mesenteric vessels. - He was given a dose of Zosyn in the ED and he was continued on Levaquin and Flagyl IV - SBFT (08/06) --> No evidence of small bowel obstruction. Multiple diffusely thickened loops of small intestine identified on the CT done earlier same day are not well appreciated on the small bowel series due to the limits of this study, but likely are still present and suggest enteritis. - IVF - GI has been consulted for further evaluation. - Clear liquid diet as tolerated - Pain control PRN - Monitor vitals closely - Supportive care - DVT prophylaxis with SCDs (2) Enteritis Status: Acute Plan: - See above. (3) Hyperkalemia Status: Acute Plan: - Pt was noted to have a potassium of 6.0 at admission. - He was given Kayexalate in the ED - Repeat BMP with K+ 5.3 - Repeat in AM - Hold Lisinopril and Lasix today (4) Benign hypertension Status: Chronic Plan: - Cont. Cardizem - Monitor (5) Diabetes mellitus type 2, noninsulin dependent Status: Chronic Plan: - NovoLog SSI - Accu checks (6) History of colon cancer Status: Resolved Plan: - Pt had colon cancer in 2000 s/p partial colectomy - Last EGD and colonoscopy was in 03/2016 (7) Hyperlipidemia Status: Chronic Assessment and Plan Patient examined. Assessment and plan formulated with Rosario Davis PA-C. I agree with the above. Rosario Davis Aug 07, 2016 15:47 Frankie Read DO Aug 09, 2016 11:25
[2016-08-07] MEDS: ATORVASTATIN 40 MG TAB PO SCH (20:21)
[2016-08-08] VITALS (8 sets, daily range): BP systolic 132–159; BP diastolic 71–85; PULSE 67–79; RESP 16–20; TEMP 97.7–98.8; O2SAT 95–98
[2016-08-08] MEDS: SODIUM CHLOR 0.9% 1000 ML INJ 1,000 ML IV SCH ×4 (02:12→22:18)
[2016-08-08 04:32] LABS: AUTOMATED NEUTROPHIL # 2.8 TH/MM3 (1.8-7.7); BASOPHIL % 0.5 % (0.0-2.0); EOSINOPHIL # 0.2 TH/MM3 (0-0.4); EOSINOPHIL % 4.9 % (0.0-4.0); HEMATOCRIT 28.1 % (39.0-51.0); HEMO FLAGS DIFF FINAL; LYMPH % 24.3 % (9.0-44.0); LYMPHOCYTE # 1.1 TH/MM3 (1.0-4.8); MEAN CORPUSCULAR HEMOGLOBIN 29.8 PG (27.0-34.0); MEAN CORPUSCULAR HGB CONC 33.4 % (32.0-36.0); MONO % 8.6 % (0.0-8.0); NEUT % 61.7 % (16.0-70.0); PLATELET COUNT 160 TH/MM3 (150-450); RED BLOOD COUNT 3.16 MIL/MM3 (4.50-5.90); RED CELL DISTRIBUTION WIDTH 13.1 % (11.6-17.2); WHITE BLOOD COUNT 4.5 TH/MM3 (4.0-11.0)
[2016-08-08 04:59] LABS: BICARBONATE 26.2 MEQ/L (21.0-32.0); POTASSIUM 4.5 MEQ/L (3.5-5.1)
[2016-08-08] MEDS: INSULIN ASPART SUPPLEMENTAL SCALE SQ SCH ×4 (06:08→21:00)
[2016-08-08] MEDS: metroNIDAZOLE 500 MG INJ 100 ML IV SCH ×3 (06:08→18:14)
[2016-08-08] MEDS: PANTOPRAZOLE SOD 40 MG DELAYED RELEASE TAB PO SCH (08:38)
[2016-08-08] MEDS: DILTIAZEM HCL 30 MG TAB PO SCH ×3 (08:38→18:13)
[2016-08-08] MEDS: SODIUM CHLORIDE 0.9% FLUSH 10 ML FLUSH IV FLUSH SCH ×2 (08:38→21:00)
--- NOTE | 2016-08-08 11:05 | HHI.PR ---
Subjective Remarks Pt states that he had an episode of diarrhea this AM. Pt c/o continued abdominal tenderness. Pt is tolerating clear liquids. Objective Vitals Vital Signs Date Time Temp Pulse Resp B/P Pulse Ox O2 Delivery O2 Flow Rate FiO2 08/08/16 08:00 97.7 72 16 132/85 95 08/08/16 04:27 98.6 67 20 141/71 97 08/08/16 00:30 98.3 79 20 137/83 97 08/07/16 20:58 72 08/07/16 19:54 97.5 70 20 156/77 99 08/07/16 16:39 16 08/07/16 15:27 97.1 85 18 162/81 99 08/07/16 12:06 97.8 74 16 167/85 95 08/07/16 08/07/16 08/08/16 15:00 23:00 07:00 Intake Total 450 ml Output Total 600 ml 1000 ml Balance -150 ml -1000 ml Intake Oral 50 ml IV Total 400 ml Output Urine Total 600 ml 1000 ml # Voids 1 Result Diagram: 08/08/16 0350 08/08/16 0350 Imaging Last Impressions Abdomen/Pelvis CT 08/06/16 0258 Signed Impressions: Service Date/Time: Saturday, August 06, 2016 03:16 - CONCLUSION: 1. Wall thickening of multiple small bowel loops with inflammatory changes. No perforation or abscess. 2. Diverticulosis of the descending and sigmoid colon without diverticulitis. 3. Punctate nonobstructing right-sided renal calculus. Hair Frances MD Small Bowel X-Ray 08/06/16 0000 Signed Impressions: Service Date/Time: Saturday, August 06, 2016 17:08 - CONCLUSION: No evidence of small bowel obstruction. Multiple diffusely thickened loops of small intestine identified on the CT done earlier same day are not well appreciated on the small bowel series due to the limits of this study, but likely are still present and suggest enteritis. Simon Marino MD Objective Remarks General: NAD, AAOx3 Chest: CTA Cardiac:Regular Abd: +BS, mildly distended, diffusely tender, voluntary guarding throughout Ext: No edema A/P Problem List: (1) Abdominal pain Status: Acute Plan: - comgmt with General Surgery and GI - Pt admitted with progressively worsening abdominal pain and nausea than began on 08/04. - CT abd/pelvis W/O IV contrast (08/06) --> Wall thickening of multiple small bowel loops with inflammatory changes. No perforation or abscess. Diverticulosis of the descending and sigmoid colon without diverticulitis. Punctate nonobstructing right-sided renal calculus. - Pt denies any vomiting, diarrhea, melena, or BRBPR. - At admission the pts physical examination indicated his abdomen was quite distended and tender throughout with minimal palpation. - There was initially concern for possible mesenteric ischemia so CTA Abd/ pelvis was performed with noted patent mesenteric vessels. - He was given a dose of Zosyn in the ED and he was continued on Levaquin and Flagyl IV - SBFT (08/06) --> No evidence of small bowel obstruction. Multiple diffusely thickened loops of small intestine identified on the CT done earlier same day are not well appreciated on the small bowel series due to the limits of this study, but likely are still present and suggest enteritis. - IVF - Clear liquid diet as tolerated - Pain control PRN - Monitor vitals closely - Supportive care - Case reviewed with General Surgery, Dr. Lugo (08/08/16). Pt appears to be NON-operative - continue current treatment plan as outlined above - DVT prophylaxis with SCDs (2) Enteritis Status: Acute Plan: - See above. (3) Hyperkalemia Status: Acute Plan: - Pt was noted to have a potassium of 6.0 at admission. - He was given Kayexalate in the ED - Repeat BMP with K+ 5.3 - Repeat in AM - Hold Lisinopril and Lasix today (4) Benign hypertension Status: Chronic Plan: - Cont. Cardizem - Monitor (5) Diabetes mellitus type 2, noninsulin dependent Status: Chronic Plan: - NovoLog SSI - Accu checks (6) History of colon cancer Status: Resolved Plan: - Pt had colon cancer in 2000 s/p partial colectomy - Last EGD and colonoscopy was in 03/2016 (7) Hyperlipidemia Status: Chronic Frankie Read DO Aug 08, 2016 11:05
[2016-08-08] MEDS: ACETAMINOPHEN/HYDROcodone 325 MG/5 MG TAB PO PRN (12:31)
--- NOTE | 2016-08-08 13:02 | HHI.GIFU ---
Subjective Remarks Resting in bed. Still with significant abdominal tenderness. No n/v. States pain was actually worse this am, but a little improved after having a bowel movement. One liquid stool- not sent for stool studies. D/W nurse/pt importance of sending stool studies. (Snow Magdaleno) Objective Vitals I&O Vital Signs Date Time Temp Pulse Resp B/P Pulse Ox O2 Delivery O2 Flow Rate FiO2 08/08/16 11:27 98.0 79 16 148/75 97 08/08/16 08:00 97.7 72 16 132/85 95 08/08/16 04:27 98.6 67 20 141/71 97 08/08/16 00:30 98.3 79 20 137/83 97 08/07/16 20:58 72 08/07/16 19:54 97.5 70 20 156/77 99 08/07/16 16:39 16 08/07/16 15:27 97.1 85 18 162/81 99 I/O 08/07/16 08/07/16 08/07/16 08/08/16 08/08/16 08/08/16 07:00 15:00 23:00 07:00 15:00 23:00 Intake Total 450 ml Output Total 425 ml 600 ml 1000 ml Balance -425 ml -150 ml -1000 ml Intake Oral 50 ml IV Total 400 ml Output Urine Total 425 ml 600 ml 1000 ml # Voids 1 Laboratory Laboratory Tests Test 08/08/16 03:50 White Blood Count 4.5 Red Blood Count 3.16 Hemoglobin 9.4 Hematocrit 28.1 Mean Corpuscular Volume 89.0 Mean Corpuscular Hemoglobin 29.8 Mean Corpuscular Hemoglobin 33.4 Concent Red Cell Distribution Width 13.1 Platelet Count 160 Mean Platelet Volume 7.1 Neutrophils (%) (Auto) 61.7 Lymphocytes (%) (Auto) 24.3 Monocytes (%) (Auto) 8.6 Eosinophils (%) (Auto) 4.9 Basophils (%) (Auto) 0.5 Neutrophils # (Auto) 2.8 Lymphocytes # (Auto) 1.1 Monocytes # (Auto) 0.4 Eosinophils # (Auto) 0.2 Basophils # (Auto) 0.0 CBC Comment DIFF FINAL Differential Comment Sodium Level 141 Potassium Level 4.5 Chloride Level 110 Carbon Dioxide Level 26.2 Anion Gap 5 Blood Urea Nitrogen 8 Creatinine 1.25 Estimat Glomerular Filtration 59 Rate Random Glucose 94 Calcium Level 8.3 Imaging Last Impressions Abdomen/Pelvis CT 08/06/16 0258 Signed Impressions: Service Date/Time: Saturday, August 06, 2016 03:16 - CONCLUSION: 1. Wall thickening of multiple small bowel loops with inflammatory changes. No perforation or abscess. 2. Diverticulosis of the descending and sigmoid colon without diverticulitis. 3. Punctate nonobstructing right-sided renal calculus. Hair Frances MD Small Bowel X-Ray 08/06/16 0000 Signed Impressions: Service Date/Time: Saturday, August 06, 2016 17:08 - CONCLUSION: No evidence of small bowel obstruction. Multiple diffusely thickened loops of small intestine identified on the CT done earlier same day are not well appreciated on the small bowel series due to the limits of this study, but likely are still present and suggest enteritis. Simon Marino MD Physical Exam HEENT: Normocephalic; atraumatic; no jaundice. CHEST: CTA CARDIAC: RRR. ABDOMEN: Distended, moderate tenderness; no hepatosplenomegaly; bowel sounds are present in all four quadrants. EXTREMITIES: No clubbing, cyanosis, or edema. SKIN: Normal; no rash; no jaundice. PROCUREMENT TECHNICIAN: No focal deficits; alert and oriented times three. (Snow Magdaleno) Assessment and Plan Plan ASSESSMENT: - Enteritis. 3-4 day hx of mild bloating, nausea without vomiting, and abdominal pain that began suddenly on Saturday. Abdomen/Pelvis CT (08/06/16) revealed 1. Wall thickening of multiple small bowel loops with inflammatory changes. No perforation or abscess. 2. Diverticulosis of the descending and sigmoid colon without diverticulitis. 3. Punctate nonobstructing right- sided renal calculus. CTA of the abdomen and pelvis (08/06/16)----> patent mesenteric vessels, wall thickening and inflammatory change involving multiple loops of small bowel without perforation, abscess, or obstruction. A trace amount of ascites. 2 mm nonobstructing right renal stone. Dr. Lugo discussed this with radiology a SBFT was ordered to evaluate for a closed loop obstruction. SBFT (08/06/16) revealed No evidence of small bowel obstruction. Multiple diffusely thickened loops of small intestine identified on the CT done earlier same day are not well appreciated on the small bowel series due to the limits of this study, but likely are still present and suggest enteritis. 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 There is evidence of the prior ileocolonic surgical anastomosis, retroflex views revealed internal grade 2 hemorrhoids, a digital exam was performed and revealed medium external hemorrhoids. Pathology revealed gastric antral mucosa showing mild chronic inactive gastritis, negative for intestinal metaplasia and negative for Helicobacter, distal esophagus biopsy was squamocolumnar mucosa showing mild chronic esophagitis, negative for dysplasia. Repeat colonoscopy was recommended for 5 years. GI was consulted for further evaluation of enteritis. DENIES sick contacts, travel, suspicious food, or antibiotics use. Pt still with significant abdominal tenderness. No n/v. + one liquid stool. No bleeding. IVF. Flagyl, Levaquin. Stool studies have not been sent. - Anemia. 9.09/07.1 - CAIO, Hyperkalemia. Creat 1.25. - HTN, DM, Hyperlipidemia. Per primary - Hx colon cancer, s/p partial colectomy 2000. PLAN: - Clear liquids - Cont. PPI - Cont. Flagyl - Cont. Levaquin - Monitor labs - Please Send stool for CDiff, C/S, O&P, WBC, Giardia - Supportive care - Further recommendations to follow based on results of above - Pt seen and examined by Dr. Delgado and myself and this note is written on his behalf (Snow Magdaleno) Physician Comments Patient seen and examined Agree with above Continue with current supportive care Monitor labs (Eugene Delgado MD) Snow Magdaleno Aug 08, 2016 13:02 Eugene Delgado MD Aug 08, 2016 14:34
--- NOTE | 2016-08-08 13:03 | HHI.PR ---
Subjective Subjective Notes Pain is still pretty severe. Labs and vitals stable. He feels hungry. Objective Vitals/I&O Vital Signs Date Time Temp Pulse Resp B/P Pulse Ox O2 Delivery O2 Flow Rate FiO2 08/08/16 11:27 98.0 79 16 148/75 97 08/06/16 13:01 Room Air 08/06/16 05:30 21 Labs Laboratory Tests Test 08/08/16 03:50 White Blood Count 4.5 Red Blood Count 3.16 Hemoglobin 9.4 Hematocrit 28.1 Mean Corpuscular Volume 89.0 Mean Corpuscular Hemoglobin 29.8 Mean Corpuscular Hemoglobin 33.4 Concent Red Cell Distribution Width 13.1 Platelet Count 160 Mean Platelet Volume 7.1 Neutrophils (%) (Auto) 61.7 Lymphocytes (%) (Auto) 24.3 Monocytes (%) (Auto) 8.6 Eosinophils (%) (Auto) 4.9 Basophils (%) (Auto) 0.5 Neutrophils # (Auto) 2.8 Lymphocytes # (Auto) 1.1 Monocytes # (Auto) 0.4 Eosinophils # (Auto) 0.2 Basophils # (Auto) 0.0 CBC Comment DIFF FINAL Differential Comment Sodium Level 141 Potassium Level 4.5 Chloride Level 110 Carbon Dioxide Level 26.2 Anion Gap 5 Blood Urea Nitrogen 8 Creatinine 1.25 Estimat Glomerular Filtration 59 Rate Random Glucose 94 Calcium Level 8.3 Radiology Last Impressions Abdomen/Pelvis CT 08/06/16 0258 Signed Impressions: Service Date/Time: Saturday, August 06, 2016 03:16 - CONCLUSION: 1. Wall thickening of multiple small bowel loops with inflammatory changes. No perforation or abscess. 2. Diverticulosis of the descending and sigmoid colon without diverticulitis. 3. Punctate nonobstructing right-sided renal calculus. Hair Frances MD Narrative Exam NAD, sleeping in bed nonlabored breathing Abd: mild distention, mod-severe upper abd ttp A/P Assessment and Plan 61 yo M with abdominal pain and mid small bowel thickening. SBFT shows transit through small bowel and having liquid BMs now, so he does not have a closed loop obstruction. Likely enteritis. Persistent pain. Fulls. Continue current tx. F/u stool studies. Daniel Lugo MD Aug 08, 2016 13:03
[2016-08-08] MEDS: LEVOFLOXACIN 750 MG PREMIX INJ 150 ML IV SCH (16:24)
[2016-08-08] MEDS: ATORVASTATIN 40 MG TAB PO SCH (22:16)
[2016-08-09] MEDS: metroNIDAZOLE 500 MG INJ 100 ML IV SCH ×4 (00:15→17:00)
[2016-08-09 03:57] VITALS: BP 139/82; PULSE 83; RESP 20; TEMP 97.6; O2SAT 96
[2016-08-09] MEDS: ACETAMINOPHEN/HYDROcodone 325 MG/5 MG TAB PO PRN ×3 (04:03→21:32)
[2016-08-09] MEDS: INSULIN ASPART SUPPLEMENTAL SCALE SQ SCH ×4 (07:00→21:00)
[2016-08-09 07:38] VITALS: BP 139/79; PULSE 77; RESP 17; TEMP 97.9; O2SAT 94
[2016-08-09 08:00] VITALS: PULSE 72
[2016-08-09] MEDS: SODIUM CHLORIDE 0.9% FLUSH 10 ML FLUSH IV FLUSH SCH ×2 (09:00→21:00)
[2016-08-09] MEDS: DILTIAZEM HCL 30 MG TAB PO SCH ×3 (09:20→17:00)
[2016-08-09] MEDS: SODIUM CHLOR 0.9% 1000 ML INJ 1,000 ML IV SCH ×3 (09:20→23:13)
[2016-08-09] MEDS: PANTOPRAZOLE SOD 40 MG DELAYED RELEASE TAB PO SCH (09:20)
--- NOTE | 2016-08-09 10:10 | HHI.GIFU ---
Subjective Remarks Resting in bed. States he feels a little better today, although he still has significant tenderness on exam. Tolerating full liquids. One liquid stool. ( Snow Magdaleno) Objective Vitals I&O Vital Signs Date Time Temp Pulse Resp B/P Pulse Ox O2 Delivery O2 Flow Rate FiO2 08/09/16 07:38 97.9 77 17 139/79 94 08/09/16 05:18 16 08/09/16 03:57 97.6 83 20 139/82 96 08/08/16 23:46 98.3 71 20 135/82 98 08/08/16 23:37 70 08/08/16 19:42 98.8 78 18 135/74 98 08/08/16 15:00 97.7 73 18 159/79 98 08/08/16 13:33 16 08/08/16 11:27 98.0 79 16 148/75 97 I/O 08/08/16 08/08/16 08/08/16 08/09/16 08/09/16 08/09/16 07:00 15:00 23:00 07:00 15:00 23:00 Output Total 1000 ml 800 ml 700 ml Balance -1000 ml -800 ml -700 ml Output Urine Total 1000 ml 800 ml 700 ml Laboratory Date/Time Procedure Status Source Growth 08/08/16 13:52 Cryptosporidium Exam - Final Resulted Stool Stool NEGATIVE - NO CRYPTOSPORIDIUM ANTIGEN... 08/08/16 13:52 Stool Pus (SHAY) Resulted Stool Stool Pending 08/08/16 13:52 Giardia Antigen (SHAY) - Final Resulted Stool Stool NEGATIVE - NO GIARDIA ANTIGEN DETECTE... 08/08/16 13:52 Received Stool Stool Pending Imaging Last Impressions Abdomen/Pelvis CT 08/06/16 0258 Signed Impressions: Service Date/Time: Saturday, August 06, 2016 03:16 - CONCLUSION: 1. Wall thickening of multiple small bowel loops with inflammatory changes. No perforation or abscess. 2. Diverticulosis of the descending and sigmoid colon without diverticulitis. 3. Punctate nonobstructing right-sided renal calculus. Hair Frances MD Small Bowel X-Ray 08/06/16 0000 Signed Impressions: Service Date/Time: Saturday, August 06, 2016 17:08 - CONCLUSION: No evidence of small bowel obstruction. Multiple diffusely thickened loops of small intestine identified on the CT done earlier same day are not well appreciated on the small bowel series due to the limits of this study, but likely are still present and suggest enteritis. Simon Marino MD Physical Exam HEENT: Normocephalic; atraumatic; no jaundice. CHEST: CTA CARDIAC: RRR. ABDOMEN: Distended, moderate tenderness; no hepatosplenomegaly; bowel sounds are present in all four quadrants. EXTREMITIES: No clubbing, cyanosis, or edema. SKIN: Normal; no rash; no jaundice. BIOASSAYIST: No focal deficits; alert and oriented times three. (MagdalenoCliffy Paz BRUNO) Assessment and Plan Plan ASSESSMENT: - Enteritis. 3-4 day hx of mild bloating, nausea without vomiting, and abdominal pain that began suddenly on Saturday. Abdomen/Pelvis CT (08/06/16) revealed 1. Wall thickening of multiple small bowel loops with inflammatory changes. No perforation or abscess. 2. Diverticulosis of the descending and sigmoid colon without diverticulitis. 3. Punctate nonobstructing right- sided renal calculus. CTA of the abdomen and pelvis (08/06/16)----> patent mesenteric vessels, wall thickening and inflammatory change involving multiple loops of small bowel without perforation, abscess, or obstruction. A trace amount of ascites. 2 mm nonobstructing right renal stone. Dr. Lugo discussed this with radiology a SBFT was ordered to evaluate for a closed loop obstruction. SBFT (08/06/16) revealed No evidence of small bowel obstruction. Multiple diffusely thickened loops of small intestine identified on the CT done earlier same day are not well appreciated on the small bowel series due to the limits of this study, but likely are still present and suggest enteritis. 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 There is evidence of the prior ileocolonic surgical anastomosis, retroflex views revealed internal grade 2 hemorrhoids, a digital exam was performed and revealed medium external hemorrhoids. Pathology revealed gastric antral mucosa showing mild chronic inactive gastritis, negative for intestinal metaplasia and negative for Helicobacter, distal esophagus biopsy was squamocolumnar mucosa showing mild chronic esophagitis, negative for dysplasia. Repeat colonoscopy was recommended for 5 years. GI was consulted for further evaluation of enteritis. DENIES sick contacts, travel, suspicious food, or antibiotics use. Pt states he is actually feeing better today, but still with significant abdominal tenderness. No n/ v. + one liquid stool. No bleeding. IVF. Flagyl, Levaquin. Cryptosporidium and giardia negative. Stool cx pending. Stool WBC pending. - Anemia. Stable. - CAIO, Hyperkalemia. Stable. - HTN, DM, Hyperlipidemia. Per primary - Hx colon cancer, s/p partial colectomy 2000. PLAN: - Full liquids - Cont. PPI - Cont. Flagyl - Cont. Levaquin - Monitor labs - Await stool studies - Supportive care - Further recommendations to follow based on results of above - Pt seen and examined by Dr. Delgado and myself and this note is written on his behalf (Snow Magdaleno) Physician Comments Patient seen and examined Agree with above Continue with current supportive care Monitor labs Possible repeat CT of the abdomen tomorrow if pain persists (Eugene Delgado MD) Snow Magdaleno Aug 09, 2016 10:09 Eugene Delgado MD Aug 09, 2016 13:37
--- NOTE | 2016-08-09 10:33 | HHI.PR ---
Subjective Remarks Pt reports that he feels like his abdominal pain is improving and he had one loose stool last night. Pt tolerating full liquid diet. Objective Vitals Vital Signs Date Time Temp Pulse Resp B/P Pulse Ox O2 Delivery O2 Flow Rate FiO2 08/09/16 07:38 97.9 77 17 139/79 94 08/09/16 05:18 16 08/09/16 03:57 97.6 83 20 139/82 96 08/08/16 23:46 98.3 71 20 135/82 98 08/08/16 23:37 70 08/08/16 19:42 98.8 78 18 135/74 98 08/08/16 15:00 97.7 73 18 159/79 98 08/08/16 13:33 16 08/08/16 11:27 98.0 79 16 148/75 97 08/08/16 08/08/16 08/09/16 15:00 23:00 07:00 Output Total 800 ml 700 ml Balance -800 ml -700 ml Output Urine Total 800 ml 700 ml Result Diagram: 08/08/16 0350 08/08/16 0350 Other Results Laboratory Tests Test 08/08/16 03:50 White Blood Count 4.5 TH/MM3 Red Blood Count 3.16 MIL/MM3 Hemoglobin 9.4 GM/DL Hematocrit 28.1 % Mean Corpuscular Volume 89.0 FL Mean Corpuscular Hemoglobin 29.8 PG Mean Corpuscular Hemoglobin 33.4 % Concent Red Cell Distribution Width 13.1 % Platelet Count 160 TH/MM3 Mean Platelet Volume 7.1 FL Neutrophils (%) (Auto) 61.7 % Lymphocytes (%) (Auto) 24.3 % Monocytes (%) (Auto) 8.6 % Eosinophils (%) (Auto) 4.9 % Basophils (%) (Auto) 0.5 % Neutrophils # (Auto) 2.8 TH/MM3 Lymphocytes # (Auto) 1.1 TH/MM3 Monocytes # (Auto) 0.4 TH/MM3 Eosinophils # (Auto) 0.2 TH/MM3 Basophils # (Auto) 0.0 TH/MM3 CBC Comment DIFF FINAL Differential Comment Sodium Level 141 MEQ/L Potassium Level 4.5 MEQ/L Chloride Level 110 MEQ/L Carbon Dioxide Level 26.2 MEQ/L Anion Gap 5 MEQ/L Blood Urea Nitrogen 8 MG/DL Creatinine 1.25 MG/DL Estimat Glomerular Filtration 59 ML/MIN Rate Random Glucose 94 MG/DL Calcium Level 8.3 MG/DL Imaging Last Impressions Abdomen/Pelvis CT 08/06/16 0258 Signed Impressions: Service Date/Time: Saturday, August 06, 2016 03:16 - CONCLUSION: 1. Wall thickening of multiple small bowel loops with inflammatory changes. No perforation or abscess. 2. Diverticulosis of the descending and sigmoid colon without diverticulitis. 3. Punctate nonobstructing right-sided renal calculus. Hair Frances MD Small Bowel X-Ray 08/06/16 0000 Signed Impressions: Service Date/Time: Saturday, August 06, 2016 17:08 - CONCLUSION: No evidence of small bowel obstruction. Multiple diffusely thickened loops of small intestine identified on the CT done earlier same day are not well appreciated on the small bowel series due to the limits of this study, but likely are still present and suggest enteritis. Simon Marino MD Objective Remarks General: NAD, AAOx3 Chest: CTA Cardiac:Regular Abd: +BS, mildly distended, diffusely tender, voluntary guarding throughout Ext: No edema A/P Problem List: (1) Abdominal pain Status: Acute Plan: - comgmt with General Surgery and GI - Pt admitted with progressively worsening abdominal pain and nausea than began on 08/04. - CT abd/pelvis W/O IV contrast (08/06) --> Wall thickening of multiple small bowel loops with inflammatory changes. No perforation or abscess. Diverticulosis of the descending and sigmoid colon without diverticulitis. Punctate nonobstructing right-sided renal calculus. - Pt denies any vomiting, diarrhea, melena, or BRBPR. - At admission the pts physical examination indicated his abdomen was quite distended and tender throughout with minimal palpation. - There was initially concern for possible mesenteric ischemia so CTA Abd/ pelvis was performed with noted patent mesenteric vessels. - He was given a dose of Zosyn in the ED and he was continued on Levaquin and Flagyl IV - SBFT (08/06) --> No evidence of small bowel obstruction. Multiple diffusely thickened loops of small intestine identified on the CT done earlier same day are not well appreciated on the small bowel series due to the limits of this study, but likely are still present and suggest enteritis. - IVF - Case reviewed between Dr. Read and General Surgery, Dr. Lugo (08/08/16) and it was felt that pt appears to be NON-operative - Pain control PRN - Monitor vitals closely - Stool studies are pending. - DVT prophylaxis with SCDs (2) Enteritis Status: Acute Plan: - See above. (3) Hyperkalemia Status: Acute Plan: - Pt was noted to have a potassium of 6.0 at admission. - He was given Kayexalate in the ED - Repeat BMP with K+ 4.5 on 08/08 - Hold Lisinopril and Lasix today (4) Benign hypertension Status: Chronic Plan: - Cont. Cardizem - Monitor (5) Diabetes mellitus type 2, noninsulin dependent Status: Chronic Plan: - NovoLog SSI - Accu checks (6) History of colon cancer Status: Resolved Plan: - Pt had colon cancer in 2000 s/p partial colectomy - Last EGD and colonoscopy was in 03/2016 (7) Hyperlipidemia Status: Chronic Assessment and Plan Patient examined. Assessment and plan formulated with Rosario Davis PA-C. I agree with the above. Still with marked tenderness on physical exam. Case d/w General Surgery (08/08/16) Will continue current treatment plan. Follow stool studies. Observe. Rosario Davis Aug 09, 2016 10:33 Frankie Read DO Aug 09, 2016 11:27
[2016-08-09 12:32] VITALS: BP 155/94; PULSE 77; TEMP 97.4; O2SAT 95
--- NOTE | 2016-08-09 14:05 | HHI.PR ---
Subjective Subjective Notes Feels slightly better but still having signficant pain. He is tolerating fulls. Had a small liquid BM. Objective Vitals/I&O Vital Signs Date Time Temp Pulse Resp B/P Pulse Ox O2 Delivery O2 Flow Rate FiO2 08/09/16 12:32 97.4 77 155/94 95 08/09/16 07:38 17 08/06/16 13:01 Room Air 08/06/16 05:30 21 Labs Date/Time Procedure Status Source Growth 08/08/16 13:52 Cryptosporidium Exam - Final Complete Stool Stool NEGATIVE - NO CRYPTOSPORIDIUM ANTIGEN... 08/08/16 13:52 Stool Pus (SHAY) - Final Complete Stool Stool RARE WBC 08/08/16 13:52 Giardia Antigen (SHAY) - Final Complete Stool Stool NEGATIVE - NO GIARDIA ANTIGEN DETECTE... 08/08/16 13:52 Received Stool Stool Pending Radiology Last Impressions Abdomen/Pelvis CT 08/06/16 0258 Signed Impressions: Service Date/Time: Saturday, August 06, 2016 03:16 - CONCLUSION: 1. Wall thickening of multiple small bowel loops with inflammatory changes. No perforation or abscess. 2. Diverticulosis of the descending and sigmoid colon without diverticulitis. 3. Punctate nonobstructing right-sided renal calculus. Hair Frances MD Narrative Exam NAD nonlabored breathing Abd: mild distention, mod-severe upper abd ttp A/P Assessment and Plan 61 yo M with abdominal pain and mid small bowel thickening. SBFT shows transit through small bowel and having liquid BMs now, so he does not have a closed loop obstruction. Likely enteritis. Persistent pain. Fulls. Continue current tx. F/u stool studies. No changes from my standpoint. ParishDaniel MD Aug 09, 2016 14:05
[2016-08-09 15:27] VITALS: BP 145/88; PULSE 69; RESP 18; TEMP 98.2; O2SAT 96
[2016-08-09 20:35] VITALS: BP 155/88; PULSE 76; RESP 16; TEMP 98.7; O2SAT 97
[2016-08-09] MEDS: ATORVASTATIN 40 MG TAB PO SCH (21:31)
[2016-08-10] VITALS (7 sets, daily range): BP systolic 135–163; BP diastolic 75–87; PULSE 68–78; RESP 16–20; TEMP 97.7–98.6; O2SAT 95–98
[2016-08-10] MEDS: metroNIDAZOLE 500 MG INJ 100 ML IV SCH ×4 (00:49→21:56)
[2016-08-10 03:45] LABS: C. DIFF EPI 027 PRESUMPTIVE NEGATIVE (NEGATIVE); C. DIFF TOXIN PCR NEGATIVE (NEGATIVE)
[2016-08-10] MEDS: INSULIN ASPART SUPPLEMENTAL SCALE SQ SCH ×4 (06:54→21:00)
[2016-08-10 07:31] LABS: AUTOMATED NEUTROPHIL # 2.6 TH/MM3 (1.8-7.7); BASOPHIL % 0.7 % (0.0-2.0); EOSINOPHIL # 0.2 TH/MM3 (0-0.4); EOSINOPHIL % 4.9 % (0.0-4.0); HEMATOCRIT 29.4 % (39.0-51.0); HEMO FLAGS DIFF FINAL; LYMPH % 22.8 % (9.0-44.0); LYMPHOCYTE # 0.9 TH/MM3 (1.0-4.8); MEAN CELL VOLUME 88.3 FL (80.0-100.0); MEAN CORPUSCULAR HEMOGLOBIN 29.6 PG (27.0-34.0); MEAN CORPUSCULAR HGB CONC 33.6 % (32.0-36.0); MONO % 7.6 % (0.0-8.0); PLATELET COUNT 180 TH/MM3 (150-450); RED BLOOD COUNT 3.33 MIL/MM3 (4.50-5.90); RED CELL DISTRIBUTION WIDTH 13.5 % (11.6-17.2)
[2016-08-10] MEDS: DILTIAZEM HCL 30 MG TAB PO SCH ×3 (08:56→18:11)
[2016-08-10] MEDS: PANTOPRAZOLE SOD 40 MG DELAYED RELEASE TAB PO SCH (08:56)
--- NOTE | 2016-08-10 10:00 | HHI.PR ---
Subjective Remarks abdominal pain is improved this morning. Pt is tolerating full liquid diet. Pt had a soft BM this AM. Objective Vitals Vital Signs Date Time Temp Pulse Resp B/P Pulse Ox O2 Delivery O2 Flow Rate FiO2 08/10/16 07:53 98.0 74 18 163/87 96 08/10/16 04:34 97.7 75 16 159/81 96 08/10/16 01:09 73 08/10/16 00:18 97.9 72 16 159/79 96 08/09/16 22:55 18 08/09/16 20:35 98.7 76 16 155/88 97 08/09/16 15:27 98.2 69 18 145/88 96 08/09/16 12:32 97.4 77 155/94 95 08/09/16 08/09/16 08/10/16 15:00 23:00 07:00 Intake Total 480 ml 160 ml Output Total 700 ml 800 ml Balance -220 ml -640 ml Intake Oral 480 ml 160 ml Output Urine Total 700 ml 800 ml Result Diagram: 08/10/16 0606 08/08/16 0350 Imaging Last Impressions Abdomen/Pelvis CT 08/06/16 0258 Signed Impressions: Service Date/Time: Saturday, August 06, 2016 03:16 - CONCLUSION: 1. Wall thickening of multiple small bowel loops with inflammatory changes. No perforation or abscess. 2. Diverticulosis of the descending and sigmoid colon without diverticulitis. 3. Punctate nonobstructing right-sided renal calculus. Hair Frances MD Small Bowel X-Ray 08/06/16 0000 Signed Impressions: Service Date/Time: Saturday, August 06, 2016 17:08 - CONCLUSION: No evidence of small bowel obstruction. Multiple diffusely thickened loops of small intestine identified on the CT done earlier same day are not well appreciated on the small bowel series due to the limits of this study, but likely are still present and suggest enteritis. Simon Marino MD Objective Remarks General: NAD, AAOx3 Chest: CTA Cardiac:Regular ABD: exam improved, no pain on light palpation, NO guarding, +BS x 4 Ext: No edema A/P Problem List: (1) Abdominal pain Status: Acute Plan: - comgmt with General Surgery and GI - Pt admitted with progressively worsening abdominal pain and nausea than began on 08/04. - CT abd/pelvis W/O IV contrast (08/06) --> Wall thickening of multiple small bowel loops with inflammatory changes. No perforation or abscess. Diverticulosis of the descending and sigmoid colon without diverticulitis. Punctate nonobstructing right-sided renal calculus. - Pt denies any vomiting, diarrhea, melena, or BRBPR. - At admission the pts physical examination indicated his abdomen was quite distended and tender throughout with minimal palpation. - There was initially concern for possible mesenteric ischemia so CTA Abd/ pelvis was performed with noted patent mesenteric vessels. - He was given a dose of Zosyn in the ED and he was continued on Levaquin and Flagyl IV - SBFT (08/06) --> No evidence of small bowel obstruction. Multiple diffusely thickened loops of small intestine identified on the CT done earlier same day are not well appreciated on the small bowel series due to the limits of this study, but likely are still present and suggest enteritis. - Case reviewed between Dr. Read and General Surgery, Dr. Lugo (08/08/16) and it was felt that pt appears to be NON-operative - Pain control PRN - Monitor vitals closely - Stool studies --> negative - advance diet - if pt remains stable, then I anticipate d/c to home 08/11/16 - DVT prophylaxis with SCDs (2) Enteritis Status: Acute Plan: - See above. (3) Hyperkalemia Status: Resolved Plan: - Pt was noted to have a potassium of 6.0 at admission. - He was given Kayexalate in the ED - Repeat BMP with K+ 4.5 on 08/08 - resume lisinopril - lasix on hold (4) Benign hypertension Status: Chronic Plan: - running high - Cont. Cardizem - resume pt's lisinopril - Monitor (5) Diabetes mellitus type 2, noninsulin dependent Status: Chronic Plan: - NovoLog SSI - Accu checks (6) History of colon cancer Status: Resolved Plan: - Pt had colon cancer in 2000 s/p partial colectomy - Last EGD and colonoscopy was in 03/2016 (7) Hyperlipidemia Status: Chronic Frankie Read DO Aug 10, 2016 10:00
[2016-08-10] MEDS: LISINOPRIL 10 MG TAB PO SCH (11:45)
--- NOTE | 2016-08-10 14:01 | HHI.PR ---
Subjective Subjective Notes He feels much better and is denying pain. He is tolerating regular diet. Objective Vitals/I&O Vital Signs Date Time Temp Pulse Resp B/P Pulse Ox O2 Delivery O2 Flow Rate FiO2 08/10/16 11:32 98.2 78 18 135/85 96 08/06/16 13:01 Room Air Labs Laboratory Tests Test 08/10/16 06:06 White Blood Count 4.0 Red Blood Count 3.33 Hemoglobin 9.9 Hematocrit 29.4 Mean Corpuscular Volume 88.3 Mean Corpuscular Hemoglobin 29.6 Mean Corpuscular Hemoglobin 33.6 Concent Red Cell Distribution Width 13.5 Platelet Count 180 Mean Platelet Volume 7.2 Neutrophils (%) (Auto) 64.0 Lymphocytes (%) (Auto) 22.8 Monocytes (%) (Auto) 7.6 Eosinophils (%) (Auto) 4.9 Basophils (%) (Auto) 0.7 Neutrophils # (Auto) 2.6 Lymphocytes # (Auto) 0.9 Monocytes # (Auto) 0.3 Eosinophils # (Auto) 0.2 Basophils # (Auto) 0.0 CBC Comment DIFF FINAL Differential Comment Date/Time Procedure Status Source Growth 08/08/16 13:52 Cryptosporidium Exam - Final Complete Stool Stool NEGATIVE - NO CRYPTOSPORIDIUM ANTIGEN... 08/08/16 13:52 Stool Pus (SHAY) - Final Complete Stool Stool RARE WBC 08/08/16 13:52 Giardia Antigen (SHAY) - Final Complete Stool Stool NEGATIVE - NO GIARDIA ANTIGEN DETECTE... 08/08/16 13:52 - Final Complete Stool Stool Radiology Last Impressions Abdomen/Pelvis CT 08/06/16 0258 Signed Impressions: Service Date/Time: Saturday, August 06, 2016 03:16 - CONCLUSION: 1. Wall thickening of multiple small bowel loops with inflammatory changes. No perforation or abscess. 2. Diverticulosis of the descending and sigmoid colon without diverticulitis. 3. Punctate nonobstructing right-sided renal calculus. Hair Frances MD Narrative Exam NAD nonlabored breathing Abd: soft, nontender A/P Assessment and Plan 61 yo M with abdominal pain and mid small bowel thickening. SBFT shows transit through small bowel and having liquid BMs now, so he does not have a closed loop obstruction. Likely enteritis. Marked improvement. Will sign off. Consider f/u with GI as outpatient. Parish,Daniel RIGGINS Aug 10, 2016 14:01
[2016-08-10] MEDS: SODIUM CHLORIDE 0.9% FLUSH 10 ML FLUSH IV FLUSH SCH ×2 (14:11→22:02)
--- NOTE | 2016-08-10 17:05 | HHI.GIFU ---
Subjective Remarks Resting in bed. Feels much better. No n/v today. Pain much improved. Soft stool. (Snow Magdaleno) Objective Vitals I&O Vital Signs Date Time Temp Pulse Resp B/P Pulse Ox O2 Delivery O2 Flow Rate FiO2 08/10/16 11:32 98.2 78 18 135/85 96 08/10/16 07:53 98.0 74 18 163/87 96 08/10/16 04:34 97.7 75 16 159/81 96 08/10/16 01:09 73 08/10/16 00:18 97.9 72 16 159/79 96 08/09/16 22:55 18 08/09/16 20:35 98.7 76 16 155/88 97 I/O 08/09/16 08/09/16 08/09/16 08/10/16 08/10/16 08/10/16 07:00 15:00 23:00 07:00 15:00 23:00 Intake Total 480 ml 160 ml Output Total 700 ml 700 ml 800 ml 1200 ml Balance -700 ml -220 ml -640 ml -1200 ml Intake Oral 480 ml 160 ml Output Urine Total 700 ml 700 ml 800 ml 1200 ml Laboratory Laboratory Tests Test 08/10/16 06:06 White Blood Count 4.0 Red Blood Count 3.33 Hemoglobin 9.9 Hematocrit 29.4 Mean Corpuscular Volume 88.3 Mean Corpuscular Hemoglobin 29.6 Mean Corpuscular Hemoglobin 33.6 Concent Red Cell Distribution Width 13.5 Platelet Count 180 Mean Platelet Volume 7.2 Neutrophils (%) (Auto) 64.0 Lymphocytes (%) (Auto) 22.8 Monocytes (%) (Auto) 7.6 Eosinophils (%) (Auto) 4.9 Basophils (%) (Auto) 0.7 Neutrophils # (Auto) 2.6 Lymphocytes # (Auto) 0.9 Monocytes # (Auto) 0.3 Eosinophils # (Auto) 0.2 Basophils # (Auto) 0.0 CBC Comment DIFF FINAL Differential Comment Date/Time Procedure Status Source Growth 08/08/16 13:52 Cryptosporidium Exam - Final Complete Stool Stool NEGATIVE - NO CRYPTOSPORIDIUM ANTIGEN... 08/08/16 13:52 Stool Pus (SHAY) - Final Complete Stool Stool RARE WBC 08/08/16 13:52 Giardia Antigen (SHAY) - Final Complete Stool Stool NEGATIVE - NO GIARDIA ANTIGEN DETECTE... 08/08/16 13:52 - Final Complete Stool Stool Imaging Last Impressions Abdomen/Pelvis CT 08/06/16 0258 Signed Impressions: Service Date/Time: Saturday, August 06, 2016 03:16 - CONCLUSION: 1. Wall thickening of multiple small bowel loops with inflammatory changes. No perforation or abscess. 2. Diverticulosis of the descending and sigmoid colon without diverticulitis. 3. Punctate nonobstructing right-sided renal calculus. Hair Frances MD Small Bowel X-Ray 08/06/16 0000 Signed Impressions: Service Date/Time: Saturday, August 06, 2016 17:08 - CONCLUSION: No evidence of small bowel obstruction. Multiple diffusely thickened loops of small intestine identified on the CT done earlier same day are not well appreciated on the small bowel series due to the limits of this study, but likely are still present and suggest enteritis. Simon Marino MD Physical Exam HEENT: Normocephalic; atraumatic; no jaundice. CHEST: CTA CARDIAC: RRR. ABDOMEN: Soft, mild tenderness; no hepatosplenomegaly; bowel sounds are present in all four quadrants. EXTREMITIES: No clubbing, cyanosis, or edema. SKIN: Normal; no rash; no jaundice. RELAY MAN: No focal deficits; alert and oriented times three. (Snow Magdaleno) Assessment and Plan Plan ASSESSMENT: - Enteritis. 3-4 day hx of mild bloating, nausea without vomiting, and abdominal pain that began suddenly on Saturday. Abdomen/Pelvis CT (08/06/16) revealed 1. Wall thickening of multiple small bowel loops with inflammatory changes. No perforation or abscess. 2. Diverticulosis of the descending and sigmoid colon without diverticulitis. 3. Punctate nonobstructing right- sided renal calculus. CTA of the abdomen and pelvis (08/06/16)----> patent mesenteric vessels, wall thickening and inflammatory change involving multiple loops of small bowel without perforation, abscess, or obstruction. A trace amount of ascites. 2 mm nonobstructing right renal stone. Dr. Lugo discussed this with radiology a SBFT was ordered to evaluate for a closed loop obstruction. SBFT (08/06/16) revealed No evidence of small bowel obstruction. Multiple diffusely thickened loops of small intestine identified on the CT done earlier same day are not well appreciated on the small bowel series due to the limits of this study, but likely are still present and suggest enteritis. 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 There is evidence of the prior ileocolonic surgical anastomosis, retroflex views revealed internal grade 2 hemorrhoids, a digital exam was performed and revealed medium external hemorrhoids. Pathology revealed gastric antral mucosa showing mild chronic inactive gastritis, negative for intestinal metaplasia and negative for Helicobacter, distal esophagus biopsy was squamocolumnar mucosa showing mild chronic esophagitis, negative for dysplasia. Repeat colonoscopy was recommended for 5 years. GI was consulted for further evaluation of enteritis. DENIES sick contacts, travel, suspicious food, or antibiotics use. Stool studies negative. Feeling much better today. States no n/v. Tolerating diet and this was advanced. Pain much improved. States he has not required pain meds since yesterday. - Anemia. Stable. - CAIO, Hyperkalemia. Stable. - HTN, DM, Hyperlipidemia. Per primary - Hx colon cancer, s/p partial colectomy 2000. PLAN: - JAKE - Cont. PPI - Cont. Flagyl - Cont. Levaquin - Monitor labs - Supportive care - Further recommendations to follow based on results of above - Pt seen and examined by Dr. Delgado and myself and this note is written on his behalf (Snow Magdaleno) Physician Comments Patient seen and examined Agree with above Continue with current supportive care Monitor labs If continued improvement in a.m. patient may be discharged from a GI standpoint follow-up as an outpatient Continue a full course of antibiotics (Eugene Delgado MD) Snow Magdaleno Aug 10, 2016 17:05 Eugene Delgado MD Aug 10, 2016 19:05
[2016-08-10] MEDS: LEVOFLOXACIN 750 MG PREMIX INJ 150 ML IV SCH (17:43)
[2016-08-10] MEDS: ACETAMINOPHEN/HYDROcodone 325 MG/5 MG TAB PO PRN (18:15)
[2016-08-10] MEDS: SODIUM CHLOR 0.9% 1000 ML INJ 1,000 ML IV SCH (22:01)
[2016-08-10] MEDS: ATORVASTATIN 40 MG TAB PO SCH (22:03)
[2016-08-11] VITALS: BP 132/73; PULSE 72; RESP 18; TEMP 98.4; O2SAT 97
[2016-08-11] MEDS: SODIUM CHLOR 0.9% 1000 ML INJ 1,000 ML IV SCH (00:15)
[2016-08-11 04:00] VITALS: BP 144/80; PULSE 76; RESP 18; TEMP 98.6; O2SAT 96
[2016-08-11] MEDS: ACETAMINOPHEN/HYDROcodone 325 MG/5 MG TAB PO PRN (05:37)
[2016-08-11] MEDS: metroNIDAZOLE 500 MG INJ 100 ML IV SCH ×3 (05:38→12:00)
[2016-08-11] MEDS: INSULIN ASPART SUPPLEMENTAL SCALE SQ SCH ×2 (05:40→11:00)
[2016-08-11 08:00] VITALS: BP 158/71; PULSE 79; RESP 18; TEMP 97.7; O2SAT 97
[2016-08-11] MEDS: LISINOPRIL 10 MG TAB PO SCH (08:41)
[2016-08-11] MEDS: SODIUM CHLORIDE 0.9% FLUSH 10 ML FLUSH IV FLUSH SCH (08:42)
[2016-08-11] MEDS: PANTOPRAZOLE SOD 40 MG DELAYED RELEASE TAB PO SCH (08:42)
[2016-08-11] MEDS: DILTIAZEM HCL 30 MG TAB PO SCH ×2 (08:42→13:00)
[2016-08-11] MEDS ORDERED: LISINOPRIL 10 MG TAB PO SCH (09:00)
[2016-08-11 09:23] LABS: AUTOMATED NEUTROPHIL # 3.4 TH/MM3 (1.8-7.7); BASOPHIL % 0.6 % (0.0-2.0); EOSINOPHIL # 0.2 TH/MM3 (0-0.4); EOSINOPHIL % 4.7 % (0.0-4.0); HEMATOCRIT 28.7 % (39.0-51.0); HEMO FLAGS DIFF FINAL; LYMPH % 18.7 % (9.0-44.0); LYMPHOCYTE # 0.9 TH/MM3 (1.0-4.8); MEAN CELL VOLUME 87.6 FL (80.0-100.0); MEAN CORPUSCULAR HEMOGLOBIN 29.8 PG (27.0-34.0); MONO % 7.8 % (0.0-8.0); NEUT % 68.2 % (16.0-70.0); PLATELET COUNT 182 TH/MM3 (150-450); RED BLOOD COUNT 3.28 MIL/MM3 (4.50-5.90); RED CELL DISTRIBUTION WIDTH 13.2 % (11.6-17.2); WHITE BLOOD COUNT 4.9 TH/MM3 (4.0-11.0)
[2016-08-11 11:00] LABS: BICARBONATE 28.2 MEQ/L (21.0-32.0); MAGNESIUM 1.6 MG/DL (1.5-2.5); POTASSIUM 4.3 MEQ/L (3.5-5.1)
[2016-08-11 12:00] VITALS: BP 144/90; PULSE 71; RESP 18; TEMP 98.1; O2SAT 97
[2016-08-11] MEDS ORDERED: LEVA500T PO (13:57)
[2016-08-11] MEDS ORDERED: HYDR-3516 PO (13:57)
[2016-08-11] MEDS ORDERED: METR-1 PO (13:57)
--- NOTE | 2016-08-11 14:06 | HHI.DS ---
Discharge Summary Admission Date Aug 08, 2016 at 10:30 Discharge Date: Aug 11, 2016 Admitting Diagnosis Enteritis, HyperK, N/V (1) Abdominal pain Diagnosis: Principal (2) Enteritis Diagnosis: Principal (3) Hyperkalemia Diagnosis: Principal (4) Benign hypertension Diagnosis: Secondary (5) Diabetes mellitus type 2, noninsulin dependent Diagnosis: Secondary (6) History of colon cancer Diagnosis: Secondary (7) Hyperlipidemia Diagnosis: Secondary Consultants Dr. Daniel Lugo, Surgery Dr. Eugene Delgado, Gastroenterology Brief History Mr. Iglesias is a pleasant 61 y/o WM with HTN, diabetes, chronic back pain, COPD , WILL and hx of colon cancer. He presented to the ED at [facility] on 08/06/16 with complaints of intractable abdominal pain. He states that the pain began on 08/04/16, and began in the lower abdomen, cramping type pain. He states that he was able to work on Saturday but that the pain progressively worsened throughout the day. Yesterday he states that he stayed in bed most of the day because of the pain. He states that the pain seems to come in waves and has associated nausea but no vomiting. He has been having normal BMs. He took a Dulcolax yesterday thinking that he maybe had some degree of constipation and he did have a BM yesterday but that did not relieve the pain. His labs in the ED noted potassium 6.0, Cr 1.43. He was given Kayexalate in the ED. CT abdomen/ pelvis noted wall thickening of multiple small bowel loops with inflammatory changes, no perforation or abscess, diverticulosis of the descending and sigmoid colon without diverticulitis, and punctate nonobstructing right-sided renal calculus. CBC/BMP: 08/11/16 0825 08/11/16 0825 Significant Findings Laboratory Tests Test 08/10/16 08/11/16 06:06 08:25 Red Blood Count 3.33 MIL/MM3 3.28 MIL/MM3 (4.50-5.90) (4.50-5.90) Hemoglobin 9.9 GM/DL 9.8 GM/DL (13.0-17.0) (13.0-17.0) Hematocrit 29.4 % 28.7 % (39.0-51.0) (39.0-51.0) Eosinophils (%) (Auto) 4.9 % (0.0-4.0) 4.7 % (0.0-4.0) Lymphocytes # (Auto) 0.9 TH/MM3 0.9 TH/MM3 (1.0-4.8) (1.0-4.8) Chloride Level 109 MEQ/L (98-107) Creatinine 1.52 MG/DL (0.60-1.30) Estimat Glomerular Filtration 47 ML/MIN (>89) Rate Imaging Last Impressions Abdomen/Pelvis CT 08/06/16 0258 Signed Impressions: Service Date/Time: Saturday, August 06, 2016 03:16 - CONCLUSION: 1. Wall thickening of multiple small bowel loops with inflammatory changes. No perforation or abscess. 2. Diverticulosis of the descending and sigmoid colon without diverticulitis. 3. Punctate nonobstructing right-sided renal calculus. Hair Frances MD Small Bowel X-Ray 08/06/16 0000 Signed Impressions: Service Date/Time: Saturday, August 06, 2016 17:08 - CONCLUSION: No evidence of small bowel obstruction. Multiple diffusely thickened loops of small intestine identified on the CT done earlier same day are not well appreciated on the small bowel series due to the limits of this study, but likely are still present and suggest enteritis. Simon Marino MD PE at Discharge General: NAD, AAOx3 Chest: CTA Cardiac:Regular ABD: exam improved, no pain on light palpation, NO guarding, +BS x 4 Ext: No edema Hospital Course (1) Abdominal pain Status: Acute Plan: - comgmt with General Surgery and GI - Pt admitted with progressively worsening abdominal pain and nausea than began on 08/04. - CT abd/pelvis W/O IV contrast (08/06) --> Wall thickening of multiple small bowel loops with inflammatory changes. No perforation or abscess. Diverticulosis of the descending and sigmoid colon without diverticulitis. Punctate nonobstructing right-sided renal calculus. - Pt denied any vomiting, diarrhea, melena, or BRBPR. - At admission the pt's physical examination indicated his abdomen was quite distended and tender throughout with minimal palpation. - There was initially concern for possible mesenteric ischemia so CTA Abd/ pelvis was performed with noted patent mesenteric vessels. - He was given a dose of Zosyn in the ED and he was continued on Levaquin and Flagyl IV - SBFT (08/06) --> No evidence of small bowel obstruction. Multiple diffusely thickened loops of small intestine identified on the CT done earlier same day are not well appreciated on the small bowel series due to the limits of this study, but likely are still present and suggest enteritis. - Case reviewed between Dr. Read and General Surgery, Dr. Lugo (08/08/16) and it was felt that pt appears to be NON-operative - Pt made slow clinical improvement with working Diagnosis of infectious enteritis although stool studies were negative - Pt re-examined on 08/11/16 & abdomen was begnin with normal bowel sounds - Pt eager for discharge - will continue PO levaquin and flagyl for additional 4 days - f/u with PCP, Dr. Hall in 1 week - f/u with [facility], Dr. Delgado, in 2 weeks - see discharge orders (2) Enteritis Status: Acute Plan: - See above. (3) Hyperkalemia Status: Resolved Plan: - Pt was noted to have a potassium of 6.0 at admission. - He was given Kayexalate in the ED - Repeat BMP with K+ 4.5 on 08/08 - resume lisinopril - lasix on hold (4) Benign hypertension Status: Chronic Plan: - running high - Cont. Cardizem - resume pt's lisinopril - Pt should keep a home blood pressure log and bring this to his follow up visit with PCP, Dr. Hall. (5) Diabetes mellitus type 2, noninsulin dependent - Pt to resume OHA upon discharge (6) History of colon cancer Status: Resolved Plan: - Pt had colon cancer in 2000 s/p partial colectomy - Last EGD and colonoscopy was in 03/2016 (7) Hyperlipidemia Status: Chronic Pt Condition on Discharge: Stable Discharge Disposition: Discharge Home Discharge Instructions DIET: Follow Instructions for: Heart Healthy Diet, Diabetic Diet Activities you can perform: Regular-No Restrictions Follow up Referrals: Gastroenterology - 1 Week with Eugene Delgado MD PCP Follow-up - [address] Son aHll New Medications: Levofloxacin (Levaquin) 500 Mg Tab 500 MG PO DAILY Infection #4 Ref 0 TAB Metronidazole (Flagyl) 500 Mg Tab 500 MG PO TID Infection #12 Ref 0 TAB Continued Medications: Atorvastatin (Atorvastatin) 40 Mg Tab 40 MG PO HS Cholesterol Management #30 Ref 0 TAB Diltiazem (Diltiazem) 30 Mg Tab 30 MG PO TID Angina #120 Ref 0 TAB Hydrocodone-Acetaminophen (Hydrocodone-Acetaminophen) 5-325 mg Tab 1 TAB PO Q6H PRN PAIN #7 Ref 0 TAB (This prescription has been renewed) Lisinopril (Lisinopril) 10 Mg Tab 10 MG PO DAILY #30 Ref 0 TAB Metformin (Metformin) 500 Mg Tab 500 MG PO DAILY With a meal Blood Sugar Management #30 Ref 0 TAB Omeprazole (Omeprazole) 40 Mg Cap 40 MG PO DAILY #30 Ref 0 CAP Discontinued Medications: Furosemide (Furosemide) 20 Mg Tab 20 MG PO DAILY #30 Ref 0 TAB Meloxicam (Meloxicam) 15 Mg Tab 15 MG PO DAILY Arthritis Pain #30 Ref 0 TAB Frankie Read DO Aug 11, 2016 14:06
== END 2016-08-11 15:53 | disposition home or self-care (01) | DRG 392 ==
LOC: NEPC 22:52 → INTOOBSV 08-06 04:13 → NEDA 08-06 04:13 → NEPFCDU 08-06 14:17 → OBSVTOIN 08-08 10:30 → N04B 08-10 16:25
PROVIDERS: ADMIT Hospitalist; ATTEND Hospitalist
DX: K52.9 Noninfective gastroenteritis and colitis, unspecified (principal); N17.9 Acute kidney failure, unspecified; E87.5 Hyperkalemia; J44.9 Chronic obstructive pulmonary disease, unspecified; I10 Essential (primary) hypertension; E11.9 Type 2 diabetes mellitus without complications; Z79.84 Long term (current) use of oral hypoglycemic drugs; E78.5 Hyperlipidemia, unspecified; D64.9 Anemia, unspecified; Z85.038 Personal history of other malignant neoplasm of large intestine; Z90.49 Acquired absence of other specified parts of digestive tract; G89.29 Other chronic pain; M54.9 Dorsalgia, unspecified; G47.33 Obstructive sleep apnea (adult) (pediatric); Z87.891 Personal history of nicotine dependence
CPT/HCPCS: 74174; 74176; 74250; 80048; 80053; 82948; 83690; 83735; 85025; 87205; 87328; 87329; 87493; 87506; 93005; 96361; 96374; 96375; G0378; J0610; J1170; J1815; J1956; J2405; J2543; J7030; Q9963; Q9967

== ENCOUNTER 2016-08-24 07:21 | Observation (INO) | payer OTHER ==
[~2016-08-24] VITALS: Ht 152.4 cm; Wt 55.6 kg
[~2016-08-24 07:21] MED LIST changes: -ALBU8I INH; +ATOR40TA16 PO; -ATOR40TA49 PO; +DILT30TA PO; -DILT31TA PO; -FURO20 PO; -GLUCTAB PO; +HYDR-3516 PO; +LEVA500T PO; -LISI-360 PO; +LISI10TA3 PO; -MELO15TA2 PO; +METF500T PO; +METR-1 PO; +OMEP40CA2 PO; -PRIL40CA PO
[2016-08-24 07:27] VITALS: BP 126/71; PULSE 99; RESP 16; TEMP 99; O2SAT 97
[2016-08-24] MEDS ORDERED: ONDANSETRON HCL 4 MG/2 ML VIAL IV PUSH ONE (07:45)
[2016-08-24] MEDS ORDERED: HYDROmorphone HCL PF 1 MG/ML VIAL IV PUSH ONE (07:45)
--- NOTE | 2016-08-24 07:49 | PD ---
HPI Chief Complaint: Abdominal Pain Time Seen by Provider: 07:31 Travel History International Travel<30 days: No Contact w/Intl Traveler<30days: No Traveled to known affect area: No History of Present Illness HPI 61-year-old male presents with diffuse abdominal pain, body aches and general ill feeling over the past 4 days with associated diarrhea. He confirms he was here about 2 weeks ago in the hospital and had gotten better but hadn't had a chance to follow with GI yet as he was just about to make an appointment. He states he also has not followed with his primary care physician as they were out of town. He states that last time he was here they were about to do surgery on him than they did a CAT scan with contrast and as it looked okay they monitored him with 4 days of IV antibiotics. He states by the fifth day he got better. He denies any new complaints but does note that his old symptoms have returned. Quality crampy, severity moderate. PFSH Past Medical History Arthritis: Yes (l hip) Asthma: No Blood Disorders: No Anxiety: No Depression: No Heart Rhythm Problems: No Cancer: Yes (colon) Cardiac Catheterization: No Cardiovascular Problems: Yes High Cholesterol: Yes Chemotherapy: No Chest Pain: No Congestive Heart Failure: Yes COPD: Yes Diabetes: Yes (pre) Patient Takes Glucophage: Yes (METFORMIN) Endocrine: Yes Gastrointestinal Disorders: Yes (infection lower intestines) GERD: Yes Genitourinary: No Hypertension: Yes Immune Disorder: No Musculoskeletal: Yes Neurologic: No Psychiatric: No Reproductive: No Respiratory: Yes Radiation Therapy: No Sleep Apnea: No Thyroid Disease: No Past Surgical History Abdominal Surgery: Yes (bowel resection 2000) Body Medical Devices: left KNEE RANDY Other Surgery: Yes (RIGHT KNEE SX, RIGHT SHOULDER SX, BACK SX, DISECTOMY) Family History Family Myocardial Infarction: Yes Social History Alcohol Use: No Tobacco Use: No Substance Use: No Allergies-Medications (Allergen,Severity, Reaction): Coded Allergies: Morphine (Verified Allergy, Severe, 08/24/16) Contrast Media (Verified Adverse Reaction, Mild, 08/24/16) notes nausea as child and states here last visit and had contrast without difficulty Reported Meds & Prescriptions Reported Meds & Active Scripts Active Levaquin (Levofloxacin) 500 Mg Tab 500 Mg PO DAILY Flagyl (Metronidazole) 500 Mg Tab 500 Mg PO TID Hydrocodone-Acetaminophen 5-325 mg Tab 1 Tab PO Q6H PRN Reported Omeprazole 40 Mg Cap 40 Mg PO DAILY Atorvastatin (Atorvastatin Calcium) 40 Mg Tab 40 Mg PO HS Diltiazem (Diltiazem HCl) 30 Mg Tab 30 Mg PO TID Lisinopril 10 Mg Tab 10 Mg PO DAILY Metformin (Metformin HCl) 500 Mg Tab 500 Mg PO DAILY With a meal Review of Systems Except as stated in HPI: all other systems reviewed are Neg Physical Exam Narrative GENERAL: Well-nourished, well-developed patient. SKIN: Warm and dry. HEAD: Normocephalic and atraumatic. EYES: No injection or drainage. ENT: No nasal drainage noted. NECK: Supple, trachea midline. CARDIOVASCULAR: Regular rate and rhythm RESPIRATORY: Breath sounds equal bilaterally. No accessory muscle use. GASTROINTESTINAL: Abdomen soft, mild tenderness diffusely NEUROLOGICAL: Awake and alert. Moves all extremities. Normal speech. Data Data Last Documented VS Vital Signs Date Time Temp Pulse Resp B/P Pulse Ox O2 Delivery O2 Flow Rate FiO2 08/24/16 11:00 78 18 139/71 98 Room Air 08/24/16 07:27 99.0 Orders Complete Blood Count With Diff (08/24/16 07:33) Comprehensive Metabolic Panel (08/24/16 07:33) Urinalysis - C+S If Indicated (08/24/16 07:33) Lipase (08/24/16 07:33) Iv Access Insert/Monitor (08/24/16 07:33) Hydromorphone Pf Inj (Dilaudid Pf Inj) (08/24/16 07:45) Ondansetron Inj (Zofran Inj) (08/24/16 07:45) Ct Abd/Pel W/O Iv Contrast (08/24/16 ) Dicyclomine Inj (Bentyl Inj) (08/24/16 10:15) Admit To Inpatient (08/24/16 ) Code Status (08/24/16 11:38) Vital Signs (Adult) Q4H (08/24/16 11:38) Activity Oob With Assistance (08/24/16 11:38) Sodium Chloride 0.9% Flush (Ns Flush) (08/24/16 11:45) Sodium Chloride 0.9% Flush (Ns Flush) (08/24/16 21:00) Acetaminophen (Tylenol) (08/24/16 11:45) Ondansetron Inj (Zofran Inj) (08/24/16 11:45) Magnesium Hydroxide Liq (Milk Of Magnesi (08/24/16 11:45) Temazepam (Restoril) (08/24/16 11:45) Basic Metabolic Panel (Bmp) (08/25/16 06:00) Complete Blood Count With Diff (08/25/16 06:00) Chest, Single Ap (08/24/16 11:38) Electrocardiogram (08/24/16 11:38) Scd Bilateral/Knee High PRISCILLA.BID (08/24/16 11:38) Naloxone Inj (Narcan Inj) (08/24/16 11:45) Inpatient Certification (08/24/16 ) Ns + Kcl 20 Meq Inj (Ns + Kcl 20 Meq Inj (08/24/16 11:45) Consult General Surgery (08/24/16 ) Metronidazole 500 Mg Inj (Flagyl 500 Mg (08/24/16 13:00) Levofloxacin 500 Mg Premix Inj (Levaquin (08/24/16 12:00) Acetamin-Hydrocod 325-5 Mg ([place] 5-325 (08/24/16 11:45) Hydromorphone Pf Inj (Dilaudid Pf Inj) (08/24/16 11:45) Admit Order (Ed Use Only) (08/24/16 11:44) Labs Laboratory Tests Test 08/24/16 07:45 White Blood Count 8.7 TH/MM3 Red Blood Count 4.07 MIL/MM3 Hemoglobin 12.2 GM/DL Hematocrit 35.9 % Mean Corpuscular Volume 88.3 FL Mean Corpuscular Hemoglobin 29.9 PG Mean Corpuscular Hemoglobin 33.8 % Concent Red Cell Distribution Width 13.6 % Platelet Count 281 TH/MM3 Mean Platelet Volume 7.3 FL Neutrophils (%) (Auto) 83.8 % Lymphocytes (%) (Auto) 7.2 % Monocytes (%) (Auto) 8.1 % Eosinophils (%) (Auto) 0.4 % Basophils (%) (Auto) 0.5 % Neutrophils # (Auto) 7.3 TH/MM3 Lymphocytes # (Auto) 0.6 TH/MM3 Monocytes # (Auto) 0.7 TH/MM3 Eosinophils # (Auto) 0.0 TH/MM3 Basophils # (Auto) 0.0 TH/MM3 CBC Comment DIFF FINAL Differential Comment Urine Color YELLOW Urine Turbidity HAZY Urine pH 5.0 Urine Specific [place] 1.014 Urine Protein 30 mg/dL Urine Glucose (UA) NEG mg/dL Urine Ketones 10 mg/dL Urine Occult Blood LARGE Urine Nitrite NEG Urine Bilirubin NEG Urine Urobilinogen LESS THAN 2.0 MG/DL Urine Leukocyte Esterase NEG Urine RBC 56 /hpf Urine WBC 3 /hpf Urine Squamous Epithelial <1 /hpf Cells Urine Bacteria FEW /hpf Microscopic Urinalysis Comment CULT NOT INDICATED Sodium Level 136 MEQ/L Potassium Level 4.9 MEQ/L Chloride Level 108 MEQ/L Carbon Dioxide Level 18.5 MEQ/L Anion Gap 10 MEQ/L Blood Urea Nitrogen 31 MG/DL Creatinine 1.75 MG/DL Estimat Glomerular Filtration 40 ML/MIN Rate Random Glucose 106 MG/DL Calcium Level 9.2 MG/DL Total Bilirubin 0.4 MG/DL Aspartate Amino Transf 11 U/L (AST/SGOT) Alanine Aminotransferase 20 U/L (ALT/SGPT) Alkaline Phosphatase 73 U/L Total Protein 7.6 GM/DL Albumin 3.6 GM/DL Lipase 324 U/L [facility] Medical Decision Making Medical Screen Exam Complete: Yes Emergency Medical Condition: Yes Medical Record Reviewed: Yes (past history confirmed) Interpretation(s) CBC & BMP Diagram 08/24/16 07:45 Last 24 hours Impressions Abdomen/Pelvis CT 08/24/16 0000 Signed Impressions: Service Date/Time: Wednesday, August 24, 2016 08:35 - CONCLUSION: 1. Abnormal bowel wall thickening of the rectosigmoid colon with adjacent inflammatory changes. The appearance is characteristic of a colitis. 2. There is no evidence of perforation or abscess. 3. Atherosclerosis. Alek Jimenez MD Differential Diagnosis Diverticulitis, pancreatitis, enteritis, renal failure... Narrative Course Will check blood work, urinalysis, CT scan abdominal pelvis and dose with Dilaudid and Zofran and reevaluate Given increase in renal function will perform CT scan without contrast and given IV fluids and monitor. He has no associated hyperkalemia today CT shows persisting colitis, patient is still requiring IV narcotics for pain control despite 2 doses. We'll discuss with GI Patient will be placed in observation given increase in renal insufficiency for IV fluid hydration while monitored with antibiotics. Physician Communication Physician Communication d/w gi states if still in hospital plan for colonoscopy on saturday, agrees to ivf hydration and antibiotics for now dr pineda agrees to admit Diagnosis Primary Impression: Colitis Additional Impression: Renal insufficiency Admitting Information Admitting Physician Requests: Admit Mia Garza MD Aug 24, 2016 07:49
[2016-08-24 08:01] LABS: AUTOMATED NEUTROPHIL # 7.3 TH/MM3 (1.8-7.7); BASOPHIL % 0.5 % (0.0-2.0); EOSINOPHIL % 0.4 % (0.0-4.0); HEMATOCRIT 35.9 % (39.0-51.0); HEMO FLAGS DIFF FINAL; LYMPH % 7.2 % (9.0-44.0); LYMPHOCYTE # 0.6 TH/MM3 (1.0-4.8); MEAN CELL VOLUME 88.3 FL (80.0-100.0); MEAN CORPUSCULAR HEMOGLOBIN 29.9 PG (27.0-34.0); MEAN CORPUSCULAR HGB CONC 33.8 % (32.0-36.0); MONO % 8.1 % (0.0-8.0); NEUT % 83.8 % (16.0-70.0); PLATELET COUNT 281 TH/MM3 (150-450); RED BLOOD COUNT 4.07 MIL/MM3 (4.50-5.90); RED CELL DISTRIBUTION WIDTH 13.6 % (11.6-17.2); WHITE BLOOD COUNT 8.7 TH/MM3 (4.0-11.0)
[2016-08-24 08:19] LABS: ALT (GPT) 20 U/L (12-78); ANION GAP 10 MEQ/L (5-15); AST (GOT) 11 U/L (15-37); BICARBONATE 18.5 MEQ/L (21.0-32.0); BLOOD UREA NITROGEN 31 MG/DL (7-18); CHLORIDE 108 MEQ/L (98-107); GLOMERULAR FILTRATION RATE 40 ML/MIN (>89); POTASSIUM 4.9 MEQ/L (3.5-5.1); SODIUM (NA) 136 MEQ/L (136-145)
[2016-08-24 08:21] LABS: ALKALINE PHOSPHATASE 73 U/L (45-117); TOTAL BILIRUBIN ADULT 0.4 MG/DL (0.2-1.0)
[2016-08-24 08:22] LABS: BACTERIA, URINE FEW /hpf; BLOOD, URINE LARGE (NEG); COMMENT (UR) CULT NOT INDICATED; CULTURE IF INDICATED CULT NOT INDICATED; GLUCOSE,URINE NEG (NEG); KETONE, URINE 10 mg/dL (NEG); NITRITE,URINE NEG (NEG); SQUAMOUS EPITHELIAL CELL URINE <1 /hpf (0-5); URINE COLOR YELLOW (YELLW/STRAW)
--- NOTE | 2016-08-24 09:12 | RADRPT ---
EXAM DATE/TIME: 08/24/2016 08:35 [facility] COMPARISON: CT ABDOMEN & PELVIS W/O CONTRAST, August 06, 2016, 3:16. INDICATIONS : Bilateral lower quadrant pain. ORAL CONTRAST: No oral contrast ingested. RADIATION DOSE: 9.96 CTDIvol (mGy) MEDICAL HISTORY : Carcinoma, colon. Chronic obstructive pulmonary disease. Cardiovascular diseaseHypertension. SURGICAL HISTORY : Bowel resection. ENCOUNTER: Initial ACUITY: 1 day PAIN SCALE: 8/10 LOCATION: Bilateral lower quadrant TECHNIQUE: Volumetric scanning of the abdomen and pelvis was performed. Using automated exposure control and ad justment of the mA and/or kV according to patient size, radiation dose was kept as low as reasonably achievable to obtain optimal diagnostic quality images. FINDINGS: Visualized liver, spleen, gallbladder, adrenal glands, left kidney are unremarkable. There is a stabl e calcification at the midpole of the right kidney medially. Scattered atherosclerotic calcifications of the aorta and iliac vessels are noted. Prostatic calcifications are seen in calcifications of the seminal vesicles. Urinary bladder is unremarkable. There are no signs of bowel obstruction. There is abnormal circumferential bowel wall thickening involving the rectosigmoid colon with mild induration of the pericolonic fat characteristic of colitis. The pancreas, stomach, small bowel are unremarkabl e. No adenopathy or aneurysm. Lung bases are clear. Osseous structures are intact. There is diverticu losis of the sigmoid colon. CONCLUSION: 1. Abnormal bowel wall thickening of the rectosigmoid colon with adjacent inflammatory changes. The a ppearance is characteristic of a colitis. 2. There is no evidence of perforation or abscess. 3. Atherosclerosis. Alek Jimenez MD on August 24, 2016 at 9:07 Board Certified Radiologist. This report was verified electronically.
[2016-08-24] MEDS ORDERED: DICYCLOMINE HCL 20 MG/2 ML VIAL IM ONE (10:15)
[2016-08-24 11:00] VITALS: BP 139/71; PULSE 18; PULSE 78; RESP 18; O2SAT 98
[2016-08-24] MEDS ORDERED: ACETAMINOPHEN 325 MG TAB PO PRN (11:45)
[2016-08-24] MEDS ORDERED: TEMAZEPAM 15 MG CAP PO PRN (11:45)
[2016-08-24] MEDS ORDERED: MAGNESIUM HYDROXIDE SUSP 30 ML CUP PO PRN (11:45)
[2016-08-24] MEDS ORDERED: SODIUM CHLORIDE 0.9% FLUSH 10 ML FLUSH IV FLUSH PRN (11:45)
[2016-08-24] MEDS ORDERED: HYDROmorphone HCL PF 1 MG/ML VIAL IV PUSH PRN (11:45)
[2016-08-24] MEDS ORDERED: NALOXONE HCL 0.4 MG/ML AMP IV PRN (11:45)
[2016-08-24] MEDS ORDERED: ONDANSETRON HCL 4 MG/2 ML VIAL IVP PRN (11:45)
[2016-08-24] MEDS ORDERED: ACETAMINOPHEN/HYDROcodone 325 MG/5 MG TAB PO PRN (11:45)
[2016-08-24] MEDS ORDERED: LEVOFLOXACIN 500 MG PREMIX INJ 100 ML IV SCH (12:00)
--- NOTE | 2016-08-24 12:03 | PD.CONS ---
HPI History of Present Illness This is a 61 year old male with a hx of colon cancer requiring a partial colectomy in 2000, who came to the ER for evaluation of abdominal pain that began yesterday. He describes this as a severe constant lower abdominal cramping pain/stomach, he couldn't tolerate so he came here for further evaluation. He denies nausea or vomiting. He denies any fevers or chills. He reports diarrhea few days ago that lasted for a couple of days, he took antidiarrhea meds and that helped. He reports rectal pain with defecation, no hematochezia or melena. He had a recent admission (08/08- ) for enteritis , during that admission, Abdomen/Pelvis CT (08/06/16) revealed 1. Wall thickening of multiple small bowel loops with inflammatory changes. No perforation or abscess. 2. Diverticulosis of the descending and sigmoid colon without diverticulitis. 3. Punctate nonobstructing right-sided renal calculus. He was started on antibiotics and General Surgery was consulted for further evaluation. A CTA of the abdomen and pelvis (08/06/16)----> patent mesenteric vessels, wall thickening and inflammatory change involving multiple loops of small bowel without perforation, abscess, or obstruction. A trace amount of ascites. 2 mm nonobstructing right renal stone. Was also evaluated by GS. SBFT (08/06/16) revealed No evidence of small bowel obstruction. Multiple diffusely thickened loops of small intestine identified on the CT done earlier same day are not well appreciated on the small bowel series due to the limits of this study, but likely are still present and suggest enteritis. Stools were negative for C-diff or other pathogens . States, he felt fine after discharge, but the pain started yesterday. Ct on (08/24/16)---> 1. Abnormal bowel wall thickening of the rectosigmoid colon with adjacent inflammatory changes. The appearance is characteristic of a colitis. 2. There is no evidence of perforation or abscess. 3. Atherosclerosis. He denies any sick contacts, travel , suspicious food, or antibiotics use. He denies hx of colitis. 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 There is evidence of the prior ileocolonic surgical anastomosis , retroflex views revealed internal grade 2 hemorrhoids, a digital exam was performed and revealed medium external hemorrhoids. Pathology revealed gastric antral mucosa showing mild chronic inactive gastritis, negative for intestinal metaplasia and negative for Helicobacter, distal esophagus biopsy was squamocolumnar mucosa showing mild chronic esophagitis, negative for dysplasia. Repeat colonoscopy was recommended for 5 years. PFSH Past Medical History COPD Diabetes Hyperlipidemia Hypertension Colon cancer status post partial colectomy 2000 WILL Chronic back pain Past Surgical History Partial colectomy for colon cancer Left knee surgery Lower back surgery Right shoulder surgery Coded Allergies: Morphine (Verified Allergy, Severe, 08/24/16) Contrast Media (Verified Adverse Reaction, Mild, 08/24/16) notes nausea as child and states here last visit and had contrast without difficulty Medications Current Medications Medications (Trade) Dose Ordered Sig/Adela Route Start Time Stop Time Status Last Admin (NS Flush) 2 ml UNSCH PRN IV FLUSH 08/24/16 11:45 UNV (NS Flush) 2 ml BID IV FLUSH 08/24/16 21:00 UNV (Tylenol) 650 mg Q4H PRN PO 08/24/16 11:45 (Zofran Inj) 4 mg Q6H PRN IVP 08/24/16 11:45 UNV (Milk Of Magnesia Liq) 30 ml Q12H PRN PO 08/24/16 11:45 (Restoril) 15 mg HS PRN PO 08/24/16 11:45 UNV (Narcan Inj) 0.4 mg UNSCH PRN IV 08/24/16 11:45 UNV Family History Sister had ovarian cancer Father had a CVA Social History Quit alcohol use about 3 years ago Quit smoking about 13 years ago Review of Systems Constitutional: COMPLAINS OF: Fatigue, DENIES: Chills Endocrine: DENIES: Polyuria Eyes: DENIES: Double Vision Ears, nose, mouth, throat: DENIES: Hoarseness Respiratory: DENIES: Shortness of breath Cardiovascular: DENIES: Lower Extremity Edema Gastrointestinal: COMPLAINS OF: Abdominal pain, Diarrhea, DENIES: Black stools , Bloody stools, Constipation, Nausea, Vomiting, Difficulty Swallowing, Anorexia , Odynophagia, Swelling of Abdomen, Heartburn, Hematemesis Genitourinary: DENIES: Hematuria Musculoskeletal: DENIES: Neck pain Integumentary: DENIES: Jaundice Hematologic/lymphatic: DENIES: Bruising Immunologic/allergic: DENIES: Eczema Neurologic: DENIES: Abnormal gait Psychiatric: DENIES: Anxiety GI Exam Vitals I&O Vital Signs Date Time Temp Pulse Resp B/P Pulse Ox O2 Delivery O2 Flow Rate FiO2 08/24/16 07:27 99.0 99 16 126/71 97 Room Air Imaging Last Impressions Abdomen/Pelvis CT 08/24/16 0000 Signed Impressions: Service Date/Time: Wednesday, August 24, 2016 08:35 - CONCLUSION: 1. Abnormal bowel wall thickening of the rectosigmoid colon with adjacent inflammatory changes. The appearance is characteristic of a colitis. 2. There is no evidence of perforation or abscess. 3. Atherosclerosis. Alek Jimenez MD Laboratory Test 08/24/16 07:45 White Blood Count 8.7 TH/MM3 Red Blood Count 4.07 MIL/MM3 Hemoglobin 12.2 GM/DL Hematocrit 35.9 % Mean Corpuscular Volume 88.3 FL Mean Corpuscular Hemoglobin 29.9 PG Mean Corpuscular Hemoglobin 33.8 % Concent Red Cell Distribution Width 13.6 % Platelet Count 281 TH/MM3 Mean Platelet Volume 7.3 FL Neutrophils (%) (Auto) 83.8 % Lymphocytes (%) (Auto) 7.2 % Monocytes (%) (Auto) 8.1 % Eosinophils (%) (Auto) 0.4 % Basophils (%) (Auto) 0.5 % Neutrophils # (Auto) 7.3 TH/MM3 Lymphocytes # (Auto) 0.6 TH/MM3 Monocytes # (Auto) 0.7 TH/MM3 Eosinophils # (Auto) 0.0 TH/MM3 Basophils # (Auto) 0.0 TH/MM3 CBC Comment DIFF FINAL Differential Comment Urine Color YELLOW Urine Turbidity HAZY Urine pH 5.0 Urine Specific [place] 1.014 Urine Protein 30 mg/dL Urine Glucose (UA) NEG mg/dL Urine Ketones 10 mg/dL Urine Occult Blood LARGE Urine Nitrite NEG Urine Bilirubin NEG Urine Urobilinogen LESS THAN 2.0 MG/DL Urine Leukocyte Esterase NEG Urine RBC 56 /hpf Urine WBC 3 /hpf Urine Squamous Epithelial <1 /hpf Cells Urine Bacteria FEW /hpf Microscopic Urinalysis Comment CULT NOT INDICATED Sodium Level 136 MEQ/L Potassium Level 4.9 MEQ/L Chloride Level 108 MEQ/L Carbon Dioxide Level 18.5 MEQ/L Anion Gap 10 MEQ/L Blood Urea Nitrogen 31 MG/DL Creatinine 1.75 MG/DL Estimat Glomerular Filtration 40 ML/MIN Rate Random Glucose 106 MG/DL Calcium Level 9.2 MG/DL Total Bilirubin 0.4 MG/DL Aspartate Amino Transf 11 U/L (AST/SGOT) Alanine Aminotransferase 20 U/L (ALT/SGPT) Alkaline Phosphatase 73 U/L Total Protein 7.6 GM/DL Albumin 3.6 GM/DL Lipase 324 U/L Physical Examination HEENT: Pupils round and reactive to light; normocephalic; atraumatic; no jaundice. Throat is clear. NECK: Neck is supple, no JVD, no lymphadenopathy. CHEST: Chest is clear to auscultation and percussion. CARDIAC: Regular rate and rhythm with no murmur gallop or rubs. ABDOMEN: Soft, nondistended, diffused tenderness; no hepatosplenomegaly; bowel sounds are present in all four quadrants. EXTREMITIES: No clubbing, cyanosis, or edema. SKIN: Normal; no rash; no jaundice. 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 Assessment and Plan Plan - Colitis- had a recent admission (08/08- ) for enteritis, patient return with complaints of abdominal pain that began yesterday, similar in severity to that at last admission Ct on (08/24/16)---> 1. Abnormal bowel wall thickening of the rectosigmoid colon with adjacent inflammatory changes. The appearance is characteristic of a colitis. 2. There is no evidence of perforation or abscess. 3. Atherosclerosis. He denies any sick contacts, travel, suspicious food, or antibiotics use. He denies hx of colitis. Abdomen/Pelvis CT (08/06/16) revealed 1. Wall thickening of multiple small bowel loops with inflammatory changes. No perforation or abscess. 2. Diverticulosis of the descending and sigmoid colon without diverticulitis. 3. Punctate nonobstructing right- sided renal calculus. CTA of the abdomen and pelvis (08/06/16)----> patent mesenteric vessels, wall thickening and inflammatory change involving multiple loops of small bowel without perforation, abscess, or obstruction. A trace amount of ascites. 2 mm nonobstructing right renal stone. SBFT (08/06/16) revealed No evidence of small bowel obstruction. Multiple diffusely thickened loops of small intestine identified on the CT done earlier same day are not well appreciated on the small bowel series due to the limits of this study, but likely are still present and suggest enteritis. 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 There is evidence of the prior ileocolonic surgical anastomosis, retroflex views revealed internal grade 2 hemorrhoids, a digital exam was performed and revealed medium external hemorrhoids. Pathology revealed gastric antral mucosa showing mild chronic inactive gastritis, negative for intestinal metaplasia and negative for Helicobacter, distal esophagus biopsy was squamocolumnar mucosa showing mild chronic esophagitis, negative for dysplasia. Repeat colonoscopy was recommended for 5 years. S/p GS evaluation on last admission. Stools negative on last admission. Flagyl, Levaquin - Anemia. no bleeding - CAIO, likely to dehydration - HTN, DM, Hyperlipidemia. Per primary - Hx colon cancer, s/p partial colectomy 2000. PLAN: - Clear liquids - Colonoscopy tomorrow - NPO mn - Golytely today - Cont. Flagyl - Cont. Levaquin - Monitor labs - Supportive care - Further recommendations to follow based on results of above - Pt seen and examined by Dr. Frey and myself and this note is written on his behalf Sukumar Edwards Aug 24, 2016 12:03
--- NOTE | 2016-08-24 12:28 | RADRPT ---
EXAM DATE/TIME: 08/24/2016 12:03 [facility] COMPARISON: CHEST SINGLE AP, August 25, 2013, 17:25. INDICATIONS : Lower chest pain. MEDICAL HISTORY : Chronic obstructive pulmonary disease. Endonitis, colon ca 2001 SURGICAL HISTORY : 18 inches of colon removed 2001 ENCOUNTER: Initial ACUITY: 1 day PAIN SCORE: Non-responsive. LOCATION: Bilateral chest FINDINGS: A single view of the chest demonstrates the lungs to be symmetrically aerated without evidence of mas s, infiltrate or effusion. The cardiomediastinal contours are unremarkable. Osseous structures are intact. CONCLUSION: No acute disease. Alek Jimenez MD on August 24, 2016 at 12:26 Board Certified Radiologist. This report was verified electronically.
[2016-08-24 13:26] VITALS: BP 146/74; PULSE 82; RESP 19; O2SAT 98
[2016-08-24] MEDS: NS + KCL 20 MEQ INJ 1,000 ML IV SCH (13:31)
[2016-08-24] MEDS: metroNIDAZOLE 500 MG INJ 100 ML IV SCH ×2 (13:32→21:00)
--- NOTE | 2016-08-24 13:50 | MB ---
cc: GARIMA MARCOS MD DATE OF CONSULTATION: 08/24/2016. REASON FOR CONSULTATION / CHIEF COMPLAINT: Abdominal pain and diarrhea. HISTORY OF PRESENT ILLNESS: This is a 61-year-old male who is well-known to me from a recent visit in which he was admitted on August 08 at which time he had severe abdominal pain which was associated with edema of the small bowel with wall thickening and this did resolve with conservative nonoperative treatment with IV antibiotics. The patient improved and went home and for week or so recently he has had diarrhea. He has not noticed any blood in the stool. He has had associated severe lower abdominal pain. He was evaluated in the emergency department and noted to have a white blood count of 9000 with 84% neutrophils. CT of the abdomen and pelvis showed rectosigmoid wall thickening. PAST MEDICAL HISTORY: 1. COPD. 2. Diabetes. 3. Hyperlipidemia. 4. Hypertension. 5. Colon cancer status post partial colectomy. 6. Back pain. PAST SURGICAL HISTORY: 1. Left knee surgery. 2. Lower back and right shoulder surgery. 3. Right colectomy in 2000 for colon cancer. This was performed by Dr. Fong ALLERGIES: 1. CONTRAST MEDIA. 2. MORPHINE. MEDICATIONS: Home medications include: 1. Omeprazole. 2. Atorvastatin. 3. Diltiazem. 4. Lisinopril. 5. Metformin. FAMILY HISTORY: Noncontributory SOCIAL HISTORY: No alcohol, tobacco or drug use. REVIEW OF SYSTEMS: 10-point review of systems negative. PHYSICAL EXAMINATION: GENERAL: Alert and oriented and appears uncomfortable. VITAL SIGNS: Temperature 99, heart rate 99, respirations 16, blood pressure 126/71. HEAD, EYES, EARS, NOSE, THROAT: Head is normocephalic and atraumatic. Eyes - Pupils equal, round and react to light bilaterally. CARDIOVASCULAR: Sinus tachycardia. LUNGS: Clear bilaterally. ABDOMEN: Well-healed transverse incision. Severe tenderness in the lower abdomen bilaterally with questionable rebound in the lower abdomen otherwise soft, mild upper abdominal tenderness. EXTREMITIES: No cyanosis or edema. LABORATORY DATA: White blood count 8.7, hemoglobin 12.2, platelets 281,000. Chemistry: BUN is 31, creatinine 1.75. ASSESSMENT AND PLAN: This is a 63-year-old male with recent hospitalization for enteritis causing partial small-bowel obstruction who now presents with rectosigmoid thickening and severe abdominal pain. 1. I would recommend checking stool for C. Difficile. 2. I do not recommend any surgical intervention at this time. 3. Gastroenterology is planning to evaluate his colon colonoscopically. 3. I do not anticipate need for surgical intervention. 4. Continue Levaquin and Flagyl. MD ZINA Chester/ZACK /12:40 PM /1:33 PM
[2016-08-24 14:50] VITALS: BP 109/65; PULSE 86; RESP 16; TEMP 97.4; O2SAT 99
[2016-08-24] MEDS ORDERED: PEG (High)/E-LYTE SOLN 4000 ML BTL PO ONE (16:00)
--- NOTE | 2016-08-24 17:21 | HHI.HP ---
HPI Service [facility] Hospitalists Primary Care Physician Son Hall, Admission Diagnosis colitis, renal insufficiency Chief Complaint: abdominal pain Travel History International Travel<30 Days: No Contact w/Intl Traveler <30 Da: No Traveled to Known Affected Are: No History of Present Illness Pt is a pleasant 61 y/o M with history of hypertension, diabetes, chronic back pain, COPD, WILL, and history of colon cancer. Patient was recently admitted at [facility] due to intractable abdominal pain. Patient had CT of the abdomen and pelvis without contrast on 08/06/16 which showed wall thickening of multiple small bowel loops with inflammatory changes. No abscess or perforation. Diverticulosis of the descending and sigmoid colon without diverticulitis. Patient was treated conservatively with Levaquin and Flagyl. Patient was seen in consultation by general surgery and gastroenterology. Patient made a slow but gradual improvement. By the day of discharge, patient was tolerating regular diet. Patient was discharged to home on a course of Flagyl and Levaquin. Patient returned to the [place] [facility] ER today (08/24/16) with complaint of severe abdominal pain. CT of the abdomen and pelvis obtained today (08/24/16) showed rectosigmoid wall thickening. Agents seen by general surgery and gastroenterology. Surgical intervention is not recommended at this time. Patient started on IV fluids, Levaquin, and Flagyl. Patient admitted to [facility] for further evaluation and treatment. Patient will undergo colonoscopy with gastroenterology tomorrow. Review of Systems Constitutional: DENIES: Diaphoretic episodes, Fatigue, Fever, Weight gain, Weight loss, Chills, Dizziness, Change in appetite, Night Sweats Endocrine: DENIES: Heat/cold intolerance, Polydipsia, Polyuria, Polyphagia Eyes: DENIES: Blurred vision, Diplopia, Eye inflammation, Eye pain, Vision loss , Photosensitivity, Double Vision Ears, nose, mouth, throat: DENIES: Tinnitus, Hearing loss, Vertigo, Nasal discharge, Oral lesions, Throat pain, Hoarseness, Ear Pain, Running Nose, Epistaxis, Sinus Pain, Toothache, Odynophagia Respiratory: DENIES: Apneas, Cough, Snoring, Wheezing, Hemoptysis, Sputum production, Shortness of breath Cardiovascular: DENIES: Chest pain, Palpitations, Syncope, Dyspnea on Exertion , PND, Lower Extremity Edema, Orthopnea, Claudication Gastrointestinal: COMPLAINS OF: Abdominal pain, See HPI, DENIES: Black stools , Bloody stools, BRB per rectum, Constipation, Diarrhea, GERD, Nausea, Reflux, Vomiting, Difficulty Swallowing, Anorexia Genitourinary: DENIES: Urinary incontinence, Urgency, Hematuria, Dysuria, Nocturia Musculoskeletal: DENIES: Joint pain, Muscle aches, Stiffness, Joint Swelling, Back pain, Neck pain Integumentary: DENIES: Abnormal pigmentation, Nail changes, Pruritus, Rash Hematologic/lymphatic: DENIES: Bruising, Lymphadenopathy Immunologic/allergic: DENIES: Eczema, Urticaria Neurologic: DENIES: Abnormal gait, Headache, Localized weakness, Paresthesias, Seizures, Speech Problems, Tremor, Poor Balance Psychiatric: DENIES: Anxiety, Confusion, Mood changes, Depression, Hallucinations, Agitation, Suicidal Ideation, Homicidal Ideation, Delusions, History of Bipolar, History of Schizophrenia Past Family Social History Past Medical History 1) hypertension 2) diabetes 3) COPD 4) WILL 5) hyperlipidemia 6) chronic low back pain Past Surgical History 1) partial colectomy, ascending colon in 2000 2) back discectomy 3) multiple knee surgeries 4) previous shoulder arthroscopies 5) EGD/colonoscopy on 04/09/[address] Burdick showing short segment Phoenix' s esophagus, acute gastritis, evidence of prior ileocolonic surgical anastomosis , grade 2 internal hemorrhoids, external hemorrhoids Reported Medications Reported Meds & Active Scripts Active Levaquin (Levofloxacin) 500 Mg Tab 500 Mg PO DAILY Flagyl (Metronidazole) 500 Mg Tab 500 Mg PO TID Hydrocodone-Acetaminophen 5-325 mg Tab 1 Tab PO Q6H PRN Reported Omeprazole 40 Mg Cap 40 Mg PO DAILY Atorvastatin (Atorvastatin Calcium) 40 Mg Tab 40 Mg PO HS Diltiazem (Diltiazem HCl) 30 Mg Tab 30 Mg PO TID Lisinopril 10 Mg Tab 10 Mg PO DAILY Metformin (Metformin HCl) 500 Mg Tab 500 Mg PO DAILY With a meal Allergies: Coded Allergies: Morphine (Verified Allergy, Severe, 08/24/16) Contrast Media (Verified Adverse Reaction, Mild, 08/24/16) notes nausea as child and states here last visit and had contrast without difficulty Family History Noncontributory Social History - Works for [employer] - Former smoker - No alcohol use - No illicit street drugs Physical Exam Vital Signs Vital Signs Date Time Temp Pulse Resp B/P Pulse Ox O2 Delivery O2 Flow Rate FiO2 08/24/16 13:26 82 19 146/74 98 Room Air 08/24/16 11:00 78 18 139/71 98 Room Air 08/24/16 07:27 99.0 99 16 126/71 97 Room Air Physical Exam GENERAL: This is a well-nourished, well-developed patient, in no apparent distress. SKIN: No rashes, ecchymoses or lesions. Cool and dry. HEAD: Atraumatic. Normocephalic. No temporal or scalp tenderness. EYES: Pupils equal round and reactive. Extraocular motions intact. No scleral icterus. No injection or drainage. ENT: Nose without bleeding, purulent drainage or septal hematoma. Throat without erythema, tonsillar hypertrophy or exudate. Uvula midline. Airway patent. NECK: Trachea midline. No JVD or lymphadenopathy. Supple, nontender, no meningeal signs. CARDIOVASCULAR: Regular rate and rhythm without murmurs, gallops, or rubs. RESPIRATORY: Clear to auscultation. Breath sounds equal bilaterally. No wheezes , rales, or rhonchi. GASTROINTESTINAL: diffuse abdominal pain on palpation at all 4 quadrants. + guarding, no rebound, no rigidity, +BS x 4 MUSCULOSKELETAL: Extremities without clubbing, cyanosis, or edema. No joint tenderness, effusion, or edema noted. No calf tenderness. Negative Homans sign bilaterally. NEUROLOGICAL: Awake and alert. Cranial nerves II through XII intact. Motor and sensory grossly within normal limits. Five out of 5 muscle strength in all muscle groups. Normal speech. Laboratory Laboratory Tests Test 08/24/16 07:45 White Blood Count 8.7 Red Blood Count 4.07 Hemoglobin 12.2 Hematocrit 35.9 Mean Corpuscular Volume 88.3 Mean Corpuscular Hemoglobin 29.9 Mean Corpuscular Hemoglobin 33.8 Concent Red Cell Distribution Width 13.6 Platelet Count 281 Mean Platelet Volume 7.3 Neutrophils (%) (Auto) 83.8 Lymphocytes (%) (Auto) 7.2 Monocytes (%) (Auto) 8.1 Eosinophils (%) (Auto) 0.4 Basophils (%) (Auto) 0.5 Neutrophils # (Auto) 7.3 Lymphocytes # (Auto) 0.6 Monocytes # (Auto) 0.7 Eosinophils # (Auto) 0.0 Basophils # (Auto) 0.0 CBC Comment DIFF FINAL Differential Comment Urine Color YELLOW Urine Turbidity HAZY Urine pH 5.0 Urine Specific [place] 1.014 Urine Protein 30 Urine Glucose (UA) NEG Urine Ketones 10 Urine Occult Blood LARGE Urine Nitrite NEG Urine Bilirubin NEG Urine Urobilinogen LESS THAN 2.0 Urine Leukocyte Esterase NEG Urine RBC 56 Urine WBC 3 Urine Squamous Epithelial <1 Cells Urine Bacteria FEW Microscopic Urinalysis Comment CULT NOT INDICATED Sodium Level 136 Potassium Level 4.9 Chloride Level 108 Carbon Dioxide Level 18.5 Anion Gap 10 Blood Urea Nitrogen 31 Creatinine 1.75 Estimat Glomerular Filtration 40 Rate Random Glucose 106 Calcium Level 9.2 Total Bilirubin 0.4 Aspartate Amino Transf 11 (AST/SGOT) Alanine Aminotransferase 20 (ALT/SGPT) Alkaline Phosphatase 73 Total Protein 7.6 Albumin 3.6 Lipase 324 Result Diagram: 08/24/16 0745 08/24/16 0745 Imaging Last Impressions Chest X-Ray 08/24/16 1138 Signed Impressions: Service Date/Time: Wednesday, August 24, 2016 12:03 - CONCLUSION: No acute disease. Alek Jimenez MD Abdomen/Pelvis CT 08/24/16 0000 Signed Impressions: Service Date/Time: Wednesday, August 24, 2016 08:35 - CONCLUSION: 1. Abnormal bowel wall thickening of the rectosigmoid colon with adjacent inflammatory changes. The appearance is characteristic of a colitis. 2. There is no evidence of perforation or abscess. 3. Atherosclerosis. Alek Jimenez MD Septic Shock Reassessment Heart: Regular rate and rhythm Lungs: Clear Skin: Warm Peripheral Pulses: Bounding Right Radial Bounding Left Radial Bounding Right Popliteal Bounding Left Popliteal Bounding Right Dorsalis Pedis Bounding Left Dorsalis Pedis Bounding Right Posterior Tibial Bounding Left Posterior Tibial Capillary Refill: Brisk Assessment and Plan Problem List: (1) Abdominal pain Status: Acute Plan: - Comanagement with general surgery and gastroenterology - Recent hospitalization for enteritis causing partial small bowel obstruction - Patient now presents with rectosigmoid thickening and severe abdominal pain - Intravenous fluids - Resume Levaquin and Flagyl - Await clostridium difficile toxin test - Patient seen by gastroenterology and colonoscopy is planned for a.m. (08/25/16) (2) History of colon cancer Status: Resolved Plan: - see above (3) Diabetes mellitus type 2, noninsulin dependent Status: Chronic Plan: - hold metformin - SSI (4) HTN (hypertension) Status: Chronic Plan: - stable - continue lisinopril & cardizem with parameters Physician Certification 2 Midnight Certification Type: Admission for Inpatient Services Order for Inpatient Services The services are ordered in accordance with Medicare regulations or non- Medicare payer requirements, as applicable. In the case of services not specified as inpatient-only, they are appropriately provided as inpatient services in accordance with the 2-midnight benchmark. Estimated LOS (days): 3 3 days is the estimated time the patient will need to remain in the hospital, assuming treatment plan goals are met and no additional complications. Post-Hospital Plan: Not yet determined Problem Qualifiers (1) HTN (hypertension): Qualified Code: I10 - Essential hypertension Frankie Read DO Aug 24, 2016 17:21
[2016-08-24] MEDS ORDERED: RESP: ALBUTEROL 2.5 MG/IPRATROPIUM 0.5 MG NEB (PRN) NEB (17:45)
[2016-08-24] MEDS: DILTIAZEM HCL 30 MG TAB PO SCH (18:00)
[2016-08-24] MEDS: HYDROmorphone HCL PF 1 MG/ML VIAL IV PUSH PRN ×2 (18:10→22:20)
[2016-08-24] MEDS ORDERED: ACETAMINOPHEN/HYDROcodone 325 MG/5 MG TAB PO ONE (18:30)
[2016-08-24] MEDS ORDERED: HYDROmorphone HCL PF 1 MG/ML VIAL IV ONE (18:30)
[2016-08-24 20:00] VITALS: BP 122/61; PULSE 94; RESP 17; TEMP 98.1; O2SAT 95
[2016-08-24] MEDS: SODIUM CHLORIDE 0.9% FLUSH 10 ML FLUSH IV FLUSH SCH (21:00)
[2016-08-24] MEDS: INSULIN ASPART SUPPLEMENTAL SCALE SQ SCH (21:00)
[2016-08-24] MEDS: ACETAMINOPHEN/HYDROcodone 325 MG/5 MG TAB PO PRN (21:45)
[2016-08-24 21:56] LABS: C. DIFF EPI 027 PRESUMPTIVE NEGATIVE (NEGATIVE)
[2016-08-25 00:17] VITALS: BP 118/63; PULSE 77; RESP 16; TEMP 97.4; O2SAT 96
[2016-08-25 01:08] LABS: C. DIFF TOXIN PCR POSITIVE (NEGATIVE)
[2016-08-25] MEDS: HYDROmorphone HCL PF 1 MG/ML VIAL IV PUSH PRN (02:45)
[2016-08-25 04:44] VITALS: BP 122/58; PULSE 70; RESP 18; TEMP 98; O2SAT 98
[2016-08-25] MEDS: metroNIDAZOLE 500 MG INJ 100 ML IV SCH (05:00)
[2016-08-25] MEDS: INSULIN ASPART SUPPLEMENTAL SCALE SQ SCH ×4 (07:00→20:55)
[2016-08-25 07:54] LABS: AUTOMATED NEUTROPHIL # 4.6 TH/MM3 (1.8-7.7); BASOPHIL % 0.6 % (0.0-2.0); EOSINOPHIL # 0.2 TH/MM3 (0-0.4); EOSINOPHIL % 2.4 % (0.0-4.0); HEMATOCRIT 33.2 % (39.0-51.0); HEMO FLAGS DIFF FINAL; LYMPH % 13.4 % (9.0-44.0); LYMPHOCYTE # 0.9 TH/MM3 (1.0-4.8); MEAN CELL VOLUME 89.2 FL (80.0-100.0); MEAN CORPUSCULAR HEMOGLOBIN 28.6 PG (27.0-34.0); MEAN CORPUSCULAR HGB CONC 32.1 % (32.0-36.0); MONO % 12.1 % (0.0-8.0); NEUT % 71.5 % (16.0-70.0); PLATELET COUNT 218 TH/MM3 (150-450); RED BLOOD COUNT 3.72 MIL/MM3 (4.50-5.90); RED CELL DISTRIBUTION WIDTH 13.7 % (11.6-17.2); WHITE BLOOD COUNT 6.4 TH/MM3 (4.0-11.0)
[2016-08-25 08:00] VITALS: BP 107/60; PULSE 77; RESP 20; TEMP 97.1; O2SAT 93
[2016-08-25] MEDS: LISINOPRIL 10 MG TAB PO SCH (08:17)
[2016-08-25] MEDS: DILTIAZEM HCL 30 MG TAB PO SCH ×3 (08:17→17:20)
[2016-08-25] MEDS: SODIUM CHLORIDE 0.9% FLUSH 10 ML FLUSH IV FLUSH SCH ×2 (08:18→20:03)
[2016-08-25 08:24] LABS: BICARBONATE 23.5 MEQ/L (21.0-32.0); POTASSIUM 4.6 MEQ/L (3.5-5.1)
[2016-08-25] MEDS: PANTOPRAZOLE SOD 40 MG DELAYED RELEASE TAB PO SCH (08:37)
[2016-08-25] MEDS: NS + KCL 20 MEQ INJ 1,000 ML IV SCH ×2 (08:37→20:56)
[2016-08-25] MEDS: ACETAMINOPHEN/HYDROcodone 325 MG/5 MG TAB PO PRN ×2 (08:41→12:44)
[2016-08-25 12:00] VITALS: BP 105/66; PULSE 72; RESP 20; TEMP 95.9; O2SAT 97
[2016-08-25] MEDS ORDERED: LEVOFLOXACIN/DEXTROSE 250 MG/50 ML IV SCH (12:00)
--- NOTE | 2016-08-25 12:36 | HHI.PR ---
Subjective Subjective Notes Pain is the same. Awaiting colonoscopy. Objective Vitals/I&O Vital Signs Date Time Temp Pulse Resp B/P Pulse Ox O2 Delivery O2 Flow Rate FiO2 08/25/16 12:00 95.9 72 20 105/66 97 08/24/16 13:26 Room Air Labs Laboratory Tests Test 08/24/16 08/25/16 17:00 07:20 Stool C. difficile Toxin (PCR) POSITIVE Stl C. difficile Toxin PRESUMPTIVE Epiderm 027 NEGATIVE White Blood Count 6.4 Red Blood Count 3.72 Hemoglobin 10.6 Hematocrit 33.2 Mean Corpuscular Volume 89.2 Mean Corpuscular Hemoglobin 28.6 Mean Corpuscular Hemoglobin 32.1 Concent Red Cell Distribution Width 13.7 Platelet Count 218 Mean Platelet Volume 7.4 Neutrophils (%) (Auto) 71.5 Lymphocytes (%) (Auto) 13.4 Monocytes (%) (Auto) 12.1 Eosinophils (%) (Auto) 2.4 Basophils (%) (Auto) 0.6 Neutrophils # (Auto) 4.6 Lymphocytes # (Auto) 0.9 Monocytes # (Auto) 0.8 Eosinophils # (Auto) 0.2 Basophils # (Auto) 0.0 CBC Comment DIFF FINAL Differential Comment Sodium Level 137 Potassium Level 4.6 Chloride Level 107 Carbon Dioxide Level 23.5 Anion Gap 7 Blood Urea Nitrogen 22 Creatinine 1.69 Estimat Glomerular Filtration 42 Rate Random Glucose 101 Calcium Level 8.8 Narrative Exam NAD Mod-severe lower abdominal ttp A/P Assessment and Plan 61 yo M recent enteritis, now with colitis. C dif PCR is positive. Awaiting colonoscopy with Dr. Mckee. I will sign off and be available as needed. ParishDaniel MD Aug 25, 2016 12:36
--- NOTE | 2016-08-25 13:28 | HHI.PR ---
Subjective Remarks Pt c/o continued abdominal pain. Objective Vitals Vital Signs Date Time Temp Pulse Resp B/P Pulse Ox O2 Delivery O2 Flow Rate FiO2 08/25/16 12:00 95.9 72 20 105/66 97 08/25/16 08:00 97.1 77 20 107/60 93 08/25/16 04:44 98.0 70 18 122/58 98 08/25/16 03:15 18 08/25/16 00:17 97.4 77 16 118/63 96 08/24/16 22:45 18 08/24/16 20:00 98.1 94 17 122/61 95 08/24/16 14:50 97.4 86 16 109/65 99 08/24/16 13:26 82 19 146/74 98 Room Air 08/24/16 08/24/16 08/25/16 15:00 23:00 07:00 Intake Total 600 ml 500 ml Balance 600 ml 500 ml Intake Oral 600 ml 500 ml # Voids 4 7 # Bowel Movements 1 7 Result Diagram: 08/25/16 0720 08/25/16 0720 Imaging Last Impressions Chest X-Ray 08/24/16 1138 Signed Impressions: Service Date/Time: Wednesday, August 24, 2016 12:03 - CONCLUSION: No acute disease. Alek Jimenez MD Abdomen/Pelvis CT 08/24/16 0000 Signed Impressions: Service Date/Time: Wednesday, August 24, 2016 08:35 - CONCLUSION: 1. Abnormal bowel wall thickening of the rectosigmoid colon with adjacent inflammatory changes. The appearance is characteristic of a colitis. 2. There is no evidence of perforation or abscess. 3. Atherosclerosis. Alek Jimenez MD Objective Remarks GENERAL: This is a well-nourished, well-developed patient, in no apparent distress. CARDIOVASCULAR: Regular rate and rhythm without murmurs, gallops, or rubs. RESPIRATORY: Clear to auscultation. Breath sounds equal bilaterally. No wheezes , rales, or rhonchi. GASTROINTESTINAL: mild, diffuse pain on light palpation, +BS x 4 MUSCULOSKELETAL: Extremities without clubbing, cyanosis, or edema. NEURO: Alert & Oriented x4 to person, place, time, situation. Moves all ext x4 A/P Problem List: (1) Abdominal pain Status: Acute Plan: - Comanagement with general surgery and gastroenterology - Recent hospitalization for enteritis causing partial small bowel obstruction - Patient now presents with rectosigmoid thickening and severe abdominal pain - Intravenous fluids - C. Dif PCR positive - stop levaquin - change flagyl to PO - colonoscopy cancelled will obtain outpt in 4-6 weeks - advance diet - if pain adequately controlled and pt able to tolerate diet, then will d/c 08/26 - Case d/w Dr. Lugo (08/26/15) - case d/w GI ECHOCARDIOGRAPH TECHNICIAN (08/26/15) (2) History of colon cancer Status: Resolved Plan: - see above (3) Diabetes mellitus type 2, noninsulin dependent Status: Chronic Plan: - hold metformin - SSI (4) HTN (hypertension) Status: Chronic Plan: - stable - continue lisinopril & cardizem with parameters Problem Qualifiers (1) HTN (hypertension): Qualified Code: I10 - Essential hypertension Frankie Read DO Aug 25, 2016 13:28
--- NOTE | 2016-08-25 13:36 | HHI.GIFU ---
Subjective Remarks Patient is sitting up in bed ordering lunch, still with abdomen pain, but no nausea or vomiting. He did the prep for colonoscopy last night, so he has been having diarrhea but no hematochezia. Stools came back (+) for C-diff. Colonoscopy is cancelled Objective Vitals I&O Vital Signs Date Time Temp Pulse Resp B/P Pulse Ox O2 Delivery O2 Flow Rate FiO2 08/25/16 12:00 95.9 72 20 105/66 97 08/25/16 08:00 97.1 77 20 107/60 93 08/25/16 04:44 98.0 70 18 122/58 98 08/25/16 03:15 18 08/25/16 00:17 97.4 77 16 118/63 96 08/24/16 22:45 18 08/24/16 20:00 98.1 94 17 122/61 95 08/24/16 14:50 97.4 86 16 109/65 99 I/O 08/24/16 08/24/16 08/24/16 08/25/16 08/25/16 08/25/16 07:00 15:00 23:00 07:00 15:00 23:00 Intake Total 600 ml 500 ml Balance 600 ml 500 ml Intake Oral 600 ml 500 ml # Voids 4 7 1 # Bowel Movements 1 7 1 Laboratory Laboratory Tests Test 08/24/16 08/25/16 17:00 07:20 Stool C. difficile Toxin (PCR) POSITIVE Stl C. difficile Toxin PRESUMPTIVE Epiderm 027 NEGATIVE White Blood Count 6.4 Red Blood Count 3.72 Hemoglobin 10.6 Hematocrit 33.2 Mean Corpuscular Volume 89.2 Mean Corpuscular Hemoglobin 28.6 Mean Corpuscular Hemoglobin 32.1 Concent Red Cell Distribution Width 13.7 Platelet Count 218 Mean Platelet Volume 7.4 Neutrophils (%) (Auto) 71.5 Lymphocytes (%) (Auto) 13.4 Monocytes (%) (Auto) 12.1 Eosinophils (%) (Auto) 2.4 Basophils (%) (Auto) 0.6 Neutrophils # (Auto) 4.6 Lymphocytes # (Auto) 0.9 Monocytes # (Auto) 0.8 Eosinophils # (Auto) 0.2 Basophils # (Auto) 0.0 CBC Comment DIFF FINAL Differential Comment Sodium Level 137 Potassium Level 4.6 Chloride Level 107 Carbon Dioxide Level 23.5 Anion Gap 7 Blood Urea Nitrogen 22 Creatinine 1.69 Estimat Glomerular Filtration 42 Rate Random Glucose 101 Calcium Level 8.8 Imaging Last Impressions Chest X-Ray 08/24/16 1138 Signed Impressions: Service Date/Time: Wednesday, August 24, 2016 12:03 - CONCLUSION: No acute disease. Alek Jimenez MD Abdomen/Pelvis CT 08/24/16 0000 Signed Impressions: Service Date/Time: Wednesday, August 24, 2016 08:35 - CONCLUSION: 1. Abnormal bowel wall thickening of the rectosigmoid colon with adjacent inflammatory changes. The appearance is characteristic of a colitis. 2. There is no evidence of perforation or abscess. 3. Atherosclerosis. Alek Jimenez MD Physical Exam HEENT: normocephalic; atraumatic; no jaundice. Throat is clear. NECK: Neck is supple, no JVD, no lymphadenopathy. CHEST: Chest is clear to auscultation and percussion. CARDIAC: Regular rate and rhythm with no murmur gallop or rubs. ABDOMEN: Soft, nondistended, lower abdomen tenderness; no hepatosplenomegaly; bowel sounds are present in all four quadrants. EXTREMITIES: No clubbing, cyanosis, or edema. SKIN: Normal; no rash; no jaundice. 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 Assessment and Plan Plan - Colitis/ C-diff- Stools came back (+) for C-diff, negative for Epid 027, this is first episode. had a recent admission (08/08- ) for enteritis, patient return with complaints of abdominal pain that began yesterday, similar in severity to that at last admission Ct on (08/24/16)---> 1. Abnormal bowel wall thickening of the rectosigmoid colon with adjacent inflammatory changes. The appearance is characteristic of a colitis. 2. There is no evidence of perforation or abscess. 3. Atherosclerosis. He denies any sick contacts, travel, suspicious food, or antibiotics use. He denies hx of colitis. Abdomen/Pelvis CT (08/06/16) revealed 1. Wall thickening of multiple small bowel loops with inflammatory changes. No perforation or abscess. 2. Diverticulosis of the descending and sigmoid colon without diverticulitis. 3. Punctate nonobstructing right- sided renal calculus. CTA of the abdomen and pelvis (08/06/16)----> patent mesenteric vessels, wall thickening and inflammatory change involving multiple loops of small bowel without perforation, abscess, or obstruction. A trace amount of ascites. 2 mm nonobstructing right renal stone. SBFT (08/06/16) revealed No evidence of small bowel obstruction. Multiple diffusely thickened loops of small intestine identified on the CT done earlier same day are not well appreciated on the small bowel series due to the limits of this study, but likely are still present and suggest enteritis. 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 There is evidence of the prior ileocolonic surgical anastomosis, retroflex views revealed internal grade 2 hemorrhoids, a digital exam was performed and revealed medium external hemorrhoids. Pathology revealed gastric antral mucosa showing mild chronic inactive gastritis, negative for intestinal metaplasia and negative for Helicobacter, distal esophagus biopsy was squamocolumnar mucosa showing mild chronic esophagitis, negative for dysplasia. Repeat colonoscopy was recommended for 5 years. S/p GS evaluation on last admission. Stools negative on last admission. Flagyl, Levaquin - Anemia. no bleeding - CAIO, likely to dehydration - HTN, DM, Hyperlipidemia. Per primary - Hx colon cancer, s/p partial colectomy 2000. PLAN: - ADA diet - Cancel Colonoscopy - Cont. Flagyl - DC Levaquin - Consider colonoscopy in one month, recent admission for enteritis with no etiology found, finding highly suggestive of IBD - Monitor labs - Supportive care - Further recommendations to follow based on results of above - Pt seen and examined by Dr. Frey and myself and this note is written on his behalf Sukumar Edwards Aug 25, 2016 13:36
[2016-08-25] MEDS: metroNIDAZOLE 500 MG TAB PO SCH ×2 (14:21→20:55)
[2016-08-25] MEDS: HYDROmorphone HCL PF 1 MG/ML VIAL IV PRN ×2 (14:25→19:59)
--- NOTE | 2016-08-25 14:42 | EKG ---
Date Performed: 08/24/2016 Time Performed: 13:45:45 PTAGE: 61 years EKG: Sinus rhythm Compared to previous tracing, sinus arrhythmia is no longer present. NORMAL ECG PREVIOUS TRACING : 08/06/2016 03.55 DOCTOR: Triston Travis Interpretating Date/Time 08/25/2016 14:41:30
[2016-08-25 16:00] VITALS: BP 114/63; PULSE 79; RESP 20; TEMP 96.4; O2SAT 95
[2016-08-25] MEDS: ACETAMINOPHEN/HYDROcodone 325 MG/7.5 MG TAB PO PRN ×2 (17:46→23:12)
[2016-08-25 20:00] VITALS: BP 115/67; PULSE 81; RESP 17; TEMP 98; O2SAT 97
[2016-08-26] VITALS: BP 120/82; PULSE 88; RESP 16; TEMP 96.9; O2SAT 98
[2016-08-26] MEDS: HYDROmorphone HCL PF 1 MG/ML VIAL IV PRN ×4 (01:18→23:17)
[2016-08-26] MEDS: ACETAMINOPHEN/HYDROcodone 325 MG/7.5 MG TAB PO PRN ×4 (03:52→20:21)
[2016-08-26 04:00] VITALS: BP 131/73; PULSE 84; RESP 17; TEMP 96.5; O2SAT 98
[2016-08-26] MEDS: metroNIDAZOLE 500 MG TAB PO SCH ×3 (05:15→20:21)
[2016-08-26] MEDS: INSULIN ASPART SUPPLEMENTAL SCALE SQ SCH ×4 (05:18→20:22)
[2016-08-26 07:50] VITALS: BP 132/69; PULSE 80; RESP 20; TEMP 97.2; O2SAT 99
[2016-08-26] MEDS: SODIUM CHLORIDE 0.9% FLUSH 10 ML FLUSH IV FLUSH SCH ×2 (09:00→20:22)
[2016-08-26] MEDS: DILTIAZEM HCL 30 MG TAB PO SCH ×3 (10:31→17:27)
[2016-08-26] MEDS: PANTOPRAZOLE SOD 40 MG DELAYED RELEASE TAB PO SCH (10:31)
[2016-08-26] MEDS: LISINOPRIL 10 MG TAB PO SCH (10:31)
[2016-08-26] MEDS: NS + KCL 20 MEQ INJ 1,000 ML IV SCH (10:33)
[2016-08-26 11:50] VITALS: BP 124/67; PULSE 76; RESP 20; TEMP 97.7; O2SAT 97
[2016-08-26] MEDS ORDERED: HYDR-3580 PO (14:43)
[2016-08-26] MEDS ORDERED: METR-1 PO (14:43)
--- NOTE | 2016-08-26 14:48 | HHI.DS ---
Discharge Summary Admission Date Aug 24, 2016 at 11:46 Discharge Date: Aug 26, 2016 Admitting Diagnosis colitis, renal insufficiency (1) Abdominal pain Diagnosis: Principal (2) History of colon cancer Diagnosis: Secondary (3) Diabetes mellitus type 2, noninsulin dependent Diagnosis: Secondary (4) HTN (hypertension) Diagnosis: Secondary Consultants Dr. Deirdre Frey, Gastroenterology Dr. Daniel Lugo, General Surgery Brief History Pt is a pleasant 61 y/o M with history of hypertension, diabetes, chronic back pain, COPD, WILL, and history of colon cancer. Patient was recently admitted at [facility] due to intractable abdominal pain. Patient had CT of the abdomen and pelvis without contrast on 08/06/16 which showed wall thickening of multiple small bowel loops with inflammatory changes. No abscess or perforation. Diverticulosis of the descending and sigmoid colon without diverticulitis. Patient was treated conservatively with Levaquin and Flagyl. Patient was seen in consultation by general surgery and gastroenterology. Patient made a slow but gradual improvement. By the day of discharge, patient was tolerating regular diet. Patient was discharged to home on a course of Flagyl and Levaquin. Patient returned to the [facility] today (08/24/16) with complaint of severe abdominal pain. CT of the abdomen and pelvis obtained today (08/24/16) showed rectosigmoid wall thickening. Agents seen by general surgery and gastroenterology. Surgical intervention is not recommended at this time. Patient started on IV fluids, Levaquin, and Flagyl. Patient admitted to [facility] for further evaluation and treatment. Patient will undergo colonoscopy with gastroenterology tomorrow. CBC/BMP: 08/25/16 0720 08/25/16 0720 Significant Findings Laboratory Tests Test 08/24/16 08/24/16 08/25/16 07:45 17:00 07:20 Red Blood Count 4.07 MIL/MM3 3.72 MIL/MM3 (4.50-5.90) (4.50-5.90) Hemoglobin 12.2 GM/DL 10.6 GM/DL (13.0-17.0) (13.0-17.0) Hematocrit 35.9 % 33.2 % (39.0-51.0) (39.0-51.0) Neutrophils (%) (Auto) 83.8 % 71.5 % (16.0-70.0) (16.0-70.0) Lymphocytes (%) (Auto) 7.2 % (9.0-44.0) Monocytes (%) (Auto) 8.1 % (0.0-8.0) 12.1 % (0.0-8.0) Lymphocytes # (Auto) 0.6 TH/MM3 0.9 TH/MM3 (1.0-4.8) (1.0-4.8) Urine Turbidity HAZY (CLEAR) Urine Protein 30 mg/dL (NEG-TRACE) Urine Ketones 10 mg/dL (NEG) Urine Occult Blood LARGE (NEG) Urine RBC 56 /hpf (0-3) Urine Bacteria FEW /hpf (NONE) Chloride Level 108 MEQ/L (98-107) Carbon Dioxide Level 18.5 MEQ/L (21.0-32.0) Blood Urea Nitrogen 31 MG/DL (7-18) 22 MG/DL (7-18) Creatinine 1.75 MG/DL 1.69 MG/DL (0.60-1.30) (0.60-1.30) Estimat Glomerular Filtration 40 ML/MIN (>89) 42 ML/MIN (>89) Rate Aspartate Amino Transf 11 U/L (15-37) (AST/SGOT) Stool C. difficile Toxin (PCR) POSITIVE (NEGATIVE) PE at Discharge GENERAL: This is a well-nourished, well-developed patient, in no apparent distress. CARDIOVASCULAR: Regular rate and rhythm without murmurs, gallops, or rubs. RESPIRATORY: Clear to auscultation. Breath sounds equal bilaterally. No wheezes , rales, or rhonchi. GASTROINTESTINAL: mild, diffuse pain on light palpation, +BS x 4 MUSCULOSKELETAL: Extremities without clubbing, cyanosis, or edema. NEURO: Alert & Oriented x4 to person, place, time, situation. Moves all ext x4 Hospital Course (1) Abdominal pain Status: Acute Plan: - Comanagement with general surgery and gastroenterology - Recent hospitalization for enteritis causing partial small bowel obstruction - Patient now presents with rectosigmoid thickening and severe abdominal pain - C. Dif PCR positive - levaquin stopped - changed flagyl to PO, will need to complete 14 days course - colonoscopy cancelled will obtain outpt in 4-6 weeks - Case d/w Dr. Lugo (08/26/15) - case d/w GI KIANA (08/26/15) - f/u with PCP, Dr. Hall, in 1 week - f/u with GI, Dr. Frey, in 3 weeks. (2) History of colon cancer Status: Resolved Plan: - see above (3) Diabetes mellitus type 2, noninsulin dependent Status: Chronic Plan: - hold metformin - SSI (4) HTN (hypertension) Status: Chronic Plan: - stable - continue lisinopril & cardizem with parameters Pt Condition on Discharge: Stable Discharge Disposition: Discharge Home Discharge Instructions DIET: Follow Instructions for: Heart Healthy Diet, Diabetic Diet Activities you can perform: Regular-No Restrictions Follow up Referrals: Gastroenterology - 3 Weeks with Deirdre Frey MD PCP Follow-up - [address] Hall New Medications: Hydrocodone-Acetaminophen (Hydrocodone-Acetaminophen) 7.5-325 mg Tab 1 TAB PO Q4H PRN PAIN 1- 10 #20 Ref 0 TAB Metronidazole (Flagyl) 500 Mg Tab 500 MG PO Q8HR C. Dif #39 Ref 0 TAB Continued Medications: Atorvastatin (Atorvastatin) 40 Mg Tab 40 MG PO HS Cholesterol Management #30 Ref 0 TAB Diltiazem (Diltiazem) 30 Mg Tab 30 MG PO TID Angina #120 Ref 0 TAB Lisinopril (Lisinopril) 10 Mg Tab 10 MG PO DAILY #30 Ref 0 TAB Metformin (Metformin) 500 Mg Tab 500 MG PO DAILY With a meal Blood Sugar Management #30 Ref 0 TAB Omeprazole (Omeprazole) 40 Mg Cap 40 MG PO DAILY #30 Ref 0 CAP Discontinued Medications: Hydrocodone-Acetaminophen (Hydrocodone-Acetaminophen) 5-325 mg Tab 1 TAB PO Q6H PRN PAIN #7 Ref 0 TAB Levofloxacin (Levaquin) 500 Mg Tab 500 MG PO DAILY Infection #4 Ref 0 TAB Metronidazole (Flagyl) 500 Mg Tab 500 MG PO TID Infection #12 Ref 0 TAB Frankie Read DO Aug 26, 2016 14:47
[2016-08-26 15:50] VITALS: BP 133/70; PULSE 81; RESP 20; TEMP 97.6; O2SAT 99
--- NOTE | 2016-08-26 15:59 | HHI.GIFU ---
Subjective Remarks feels better, no diarrhea today, no abdominal pain Objective Vitals I&O Vital Signs Date Time Temp Pulse Resp B/P Pulse Ox O2 Delivery O2 Flow Rate FiO2 08/26/16 11:50 97.7 76 20 124/67 97 08/26/16 07:50 97.2 80 20 132/69 99 08/26/16 04:00 96.5 84 17 131/73 98 08/26/16 00:00 96.9 88 16 120/82 98 08/25/16 20:00 98.0 81 17 115/67 97 08/25/16 16:00 96.4 79 20 114/63 95 I/O 08/25/16 08/25/16 08/25/16 08/26/16 08/26/16 08/26/16 07:00 15:00 23:00 07:00 15:00 23:00 Intake Total 500 ml 2340 ml 480 ml Output Total 1750 ml Balance 500 ml 2340 ml -1270 ml Intake Oral 500 ml 840 ml 480 ml IV Total 1500 ml Output Urine Total 1750 ml # Voids 7 1 2 # Bowel Movements 7 1 1 Physical Exam HEENT: normocephalic; atraumatic; no jaundice. Throat is clear. NECK: Neck is supple, no JVD, no lymphadenopathy. CHEST: Chest is clear to auscultation and percussion. CARDIAC: Regular rate and rhythm with no murmur gallop or rubs. ABDOMEN: Soft, nondistended, no tenderness; no hepatosplenomegaly; bowel sounds are present in all four quadrants. EXTREMITIES: No clubbing, cyanosis, or edema. SKIN: Normal; no rash; no jaundice. 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 Assessment and Plan Plan - Colitis/ C-diff- Stools came back (+) for C-diff, negative for Epid 027, this is first episode. had a recent admission (08/08- ) for enteritis, patient return with complaints of abdominal pain that began yesterday, similar in severity to that at last admission Ct on (08/24/16)---> 1. Abnormal bowel wall thickening of the rectosigmoid colon with adjacent inflammatory changes. The appearance is characteristic of a colitis. 2. There is no evidence of perforation or abscess. 3. Atherosclerosis. He denies any sick contacts, travel, suspicious food, or antibiotics use. He denies hx of colitis. Abdomen/Pelvis CT (08/06/16) revealed 1. Wall thickening of multiple small bowel loops with inflammatory changes. No perforation or abscess. 2. Diverticulosis of the descending and sigmoid colon without diverticulitis. 3. Punctate nonobstructing right- sided renal calculus. CTA of the abdomen and pelvis (08/06/16)----> patent mesenteric vessels, wall thickening and inflammatory change involving multiple loops of small bowel without perforation, abscess, or obstruction. A trace amount of ascites. 2 mm nonobstructing right renal stone. SBFT (08/06/16) revealed No evidence of small bowel obstruction. Multiple diffusely thickened loops of small intestine identified on the CT done earlier same day are not well appreciated on the small bowel series due to the limits of this study, but likely are still present and suggest enteritis. 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 There is evidence of the prior ileocolonic surgical anastomosis, retroflex views revealed internal grade 2 hemorrhoids, a digital exam was performed and revealed medium external hemorrhoids. Pathology revealed gastric antral mucosa showing mild chronic inactive gastritis, negative for intestinal metaplasia and negative for Helicobacter, distal esophagus biopsy was squamocolumnar mucosa showing mild chronic esophagitis, negative for dysplasia. Repeat colonoscopy was recommended for 5 years. S/p GS evaluation on last admission. Stools negative on last admission. Flagyl, Levaquin - Anemia. no bleeding - CAIO, likely to dehydration - HTN, DM, Hyperlipidemia. Per primary - Hx colon cancer, s/p partial colectomy 2000. 08-26-16 doing better, no diarrhea, on AB from C diff. no bleeding, slight drop in HGB PLAN: - ADA diet - Cancel Colonoscopy - Cont. Flagyl - DC Levaquin - Consider colonoscopy in one month, recent admission for enteritis with no etiology found, finding highly suggestive of IBD - Monitor labs - Supportive care Deirdre Frey MD Aug 26, 2016 15:59
[2016-08-26 20:00] VITALS: BP 109/55; PULSE 73; RESP 17; TEMP 98.3; O2SAT 97
[2016-08-27] VITALS: BP 111/61; PULSE 76; RESP 18; TEMP 96; O2SAT 96
[2016-08-27] MEDS: ACETAMINOPHEN/HYDROcodone 325 MG/7.5 MG TAB PO PRN ×2 (02:51→08:25)
[2016-08-27 04:00] VITALS: BP 110/68; PULSE 76; RESP 18; TEMP 96.2; O2SAT 96
[2016-08-27] MEDS: metroNIDAZOLE 500 MG TAB PO SCH (05:42)
[2016-08-27] MEDS: INSULIN ASPART SUPPLEMENTAL SCALE SQ SCH (05:44)
[2016-08-27 08:00] VITALS: BP_SYST 111; BP_SYST 113; BP_DIAS 69; PULSE 83; RESP 20; TEMP 97.3; O2SAT 97
[2016-08-27] MEDS: SODIUM CHLORIDE 0.9% FLUSH 10 ML FLUSH IV FLUSH SCH (08:23)
[2016-08-27] MEDS: DILTIAZEM HCL 30 MG TAB PO SCH (08:23)
[2016-08-27] MEDS: PANTOPRAZOLE SOD 40 MG DELAYED RELEASE TAB PO SCH (08:23)
[2016-08-27] MEDS: LISINOPRIL 10 MG TAB PO SCH (08:23)
== END 2016-08-27 11:14 | disposition home or self-care (01) ==
LOC: NEPC 07:21 → NEDA 11:46 → INTOOBSV 11:46 → HOCA 14:42 → UNDODISIN 08-27 11:14
PROVIDERS: ADMIT Hospitalist; ATTEND Hospitalist
DX: A04.7 Enterocolitis due to Clostridium difficile (principal); I11.0 Hypertensive heart disease with heart failure; I50.9 Heart failure, unspecified; E78.5 Hyperlipidemia, unspecified; D64.9 Anemia, unspecified; N17.9 Acute kidney failure, unspecified; K21.9 Gastro-esophageal reflux disease without esophagitis; E11.9 Type 2 diabetes mellitus without complications; J44.9 Chronic obstructive pulmonary disease, unspecified; G47.33 Obstructive sleep apnea (adult) (pediatric); G89.29 Other chronic pain; M54.9 Dorsalgia, unspecified; M16.12 Unilateral primary osteoarthritis, left hip; E78.00 Pure hypercholesterolemia, unspecified; Z85.038 Personal history of other malignant neoplasm of large intestine; Z90.49 Acquired absence of other specified parts of digestive tract; Z79.84 Long term (current) use of oral hypoglycemic drugs; Z88.5 Allergy status to narcotic agent; Z91.041 Radiographic dye allergy status; Z87.891 Personal history of nicotine dependence
CPT/HCPCS: 71010; 74176; 80048; 80053; 81001; 82948; 83690; 85025; 87493; 93005; 96372; 96374; 96375; 99285; G0378; J0500; J1170; J1956; J2405; J3480

== ENCOUNTER → 2017-01-28 | Outpatient (CLI) | payer OTHER ==
[~2017-01-28] MED LIST changes: +ADVA100A INH; +FERR325C PO; +FURO20TA PO; -HYDR-3516 PO; +HYDR-3580 PO; +HYDR-3583 PO; -LEVA500T PO; +VENTAER INH; +WALKER/ADULT/FO1 MIS; +XARE10TA PO
== END ==
LOC: CPRE 11:48
PROVIDERS: ATTEND Orthopaedic Surgery Orthopaedic Trauma
DX: Z01.812 Encounter for preprocedural laboratory examination (principal); Z13.9 Encounter for screening, unspecified; Z01.818 Encounter for other preprocedural examination; Z01.811 Encounter for preprocedural respiratory examination; Z79.01 Long term (current) use of anticoagulants; M79.609 Pain in unspecified limb; Z96.60 Presence of unspecified orthopedic joint implant; Z01.810 Encounter for preprocedural cardiovascular examination

== ENCOUNTER 2017-02-05 09:09 | Inpatient (IN) | payer OTHER ==
[~2017-02-05] VITALS: Ht 152.4 cm; Wt 60.4 kg
[~2017-02-05 09:09] MED LIST changes: -HYDR-3583 PO; -METR-1 PO; -WALKER/ADULT/FO1 MIS; -XARE10TA PO
[2017-02-05] MEDS ORDERED: METOPROLOL TARTRATE 25 MG TAB PO PRN (10:00)
[2017-02-05] MEDS ORDERED: LACTATED RINGER'S 1000 ML IV PRN (10:00)
[2017-02-05] MEDS ORDERED: CHLORHEXIDINE GLUCONATE 2 % 1 PACK (2 CLOTHS) TOPICAL PRN (10:00)
[2017-02-05] MEDS ORDERED: SODIUM CHLORID 0.9% 500 ML IV PRN (10:00)
[2017-02-05] MEDS ORDERED: POVIDONE IODINE 5% (ANTISEPSIS KIT) 4 APPLICATIONS EACH NARE PRN (10:00)
[2017-02-05] MEDS ORDERED: INSULIN HUMAN REGULAR 1,000 UNITS/10 ML VIAL SQ PRN (10:00)
[2017-02-05] MEDS ORDERED: VANCOMYCIN 1000 MG/NS 250 ML (for <70 kg) IV SCH ×2 (10:30)
[2017-02-05] MEDS ORDERED: ceFAZolin 2 GM PREMIX 50 ML IV SCH (10:30)
[2017-02-05] MEDS ORDERED: CHLORHEXIDINE GLUCONATE 4% SOLN 120 ML BTL TOPICAL SCH (10:30)
[2017-02-05] MEDS ORDERED: diphenhydrAMINE HCL 50 MG/ML VIAL ONE (10:44)
[2017-02-05] MEDS ORDERED: SODIUM CHLORIDE 0.9% IV SCH (11:00)
[2017-02-05] MEDS ORDERED: TRANEXAMIC ACID IV SCH (11:00)
[2017-02-05] MEDS ORDERED: EXPAREL PERI-ARTICULAR INJECTION (TOTAL VOL. 60 ML) P-ARTICULR SCH ×2 (11:00)
[2017-02-05] MEDS ORDERED: diphenhydrAMINE HCL 50 MG/ML VIAL IV PUSH ONE (11:15)
[2017-02-05] MEDS ORDERED: GLYCOPYRROLATE 1 MG/5 ML SYRINGE IV PUSH ONE (12:00)
[2017-02-05] MEDS ORDERED: PHENYLEPH/NS 1000 MCG/10 ML SYR IV ONE (12:00)
[2017-02-05] MEDS ORDERED: DEXAMETHASONE SOD PHOS 4 MG/ML VIAL IV ONE (12:00)
[2017-02-05] MEDS ORDERED: MIDAZOLAM HCL 2 MG/2 ML VIAL IV ONE (12:00)
[2017-02-05] MEDS ORDERED: PROPOFOL 200 MG/20 ML AMP IV ONE (12:00)
[2017-02-05] MEDS ORDERED: ePHEDrine/NS 25 MG/5 ML SYR IV ONE (12:00)
[2017-02-05] MEDS ORDERED: SODIUM CHLORIDE 0.9% 20 ML VIAL IV ONE (12:00)
[2017-02-05] MEDS ORDERED: NEOSTIGMINE 3 MG/3 ML SYR IV ONE (12:00)
[2017-02-05] MEDS ORDERED: ESMOLOL HCL 100 MG/10 ML VIAL IV ONE (12:00)
[2017-02-05] MEDS ORDERED: ROCURONIUM INJ 50 MG/5 ML SYRINGE IV PUSH ONE (12:00)
[2017-02-05] MEDS ORDERED: ONDANSETRON HCL 4 MG/2 ML VIAL IV PUSH ONE (12:00)
[2017-02-05] MEDS ORDERED: LACTATED RINGER'S 1000 ML INJ 1,000 ML IV ONE (12:00)
[2017-02-05] MEDS ORDERED: LIDOCAINE HCL 1% PF 5 ML AMPULE OTHER ONE (12:00)
[2017-02-05] MEDS ORDERED: WALKER/ADULT/FO1 MIS (12:07)
[2017-02-05] MEDS ORDERED: HYDR-3583 PO (12:07)
[2017-02-05] MEDS ORDERED: XARE10TA PO (12:07)
--- NOTE | 2017-02-05 12:08 | HHI.FF ---
Face to Face Verification Diagnosis: (1) S/P total hip arthroplasty Physical Therapy Gait training Hip: Total hip, Protocol: Left Left LE Weight Bearing: WB as tolerated Nursing Dressing Changes: Daily dressing change, Coverderm/Primapore (begin adding xeroform POd 10 to incision) I have seen patient Rod Iglesias on 02/05/17. My clinical findings support the need for the requested home health care services because: Ltd mobility - disease progression I certify that my clinical findings support that this patient is homebound because: Post-op weakness Cecilio Herrera Feb 05, 2017 12:08
[2017-02-05] MEDS ORDERED: GENTAMICIN SULFATE 80 MG/2 ML VIAL ONE (13:54)
[2017-02-05] MEDS ORDERED: HYDROmorphone HCL PF 2 MG/ML VIAL ONE (14:05)
[2017-02-05] MEDS ORDERED: FAMOTIDINE 20 MG/2 ML VIAL ONE (14:06)
[2017-02-05] MEDS ORDERED: ceFAZolin INJ 1,000 MG VIAL ONE (14:25)
--- NOTE | 2017-02-05 16:11 | PD.OP ---
cc: Bob Tilley MD Operative Report Date of Surgery: Feb 05, 2017 Preoperative Diagnosis: Severe left hip osteoarthritis Postoperative Diagnosis: Procedure: Left total hip arthroplasty via anterior approach Anesthesia: Gen. Surgeon: Bob Tilley Bufferer(s): Quique Vivas PA-C The surgical procedure was assisted by my physician surgical assistant certified. My P.A. presence was necessary throughout this case for the manipulation and positioning of the surgical extremity. My P.A. was assisting me throughout the duration of this procedure. The skill set of a physician surgical assistant certified was medically necessary to complete this procedure. During the surgical case the registered nurse surgical services was working at the back table and the physician surgical assistant certified was directly assisting me. Operation and Findings: PLAN OF ACTIVITY Weight bear as tolerated. DRAINS: 7-mm AMY drain. IMPLANTS USED DePuy Corail size [11] collared stem with a size [48] Dupo Gription cup, [48 /32] Altrx poly liner, and a [+5] ceramic Biolox ceramic head. DETAILS OF PROCEDURE: This patient has a long history of hip pain. Patient was found to have severe osteoarthritis. The patient had radiographic evidence of joint space narrowing with [id number] arthritis and osteophytes around the acetabulum as well as the femoral head. There was also some cystic changes. The patient failed conservative treatment with pain medications, anti-inflammatories, physical therapy, assistive devices including a cane, as well as therapeutic injection of the hip. Patient's hip arthritis was limiting his ability to ambulate and perform activities of daily living. The patient wished to proceed with surgery and informed consent was obtained. Operative site was marked. I discussed both posterior approach and anterior approach with the patient and decision was made for anterior approach. Patient was brought to OR and placed on OR table. IV sedation and general anesthesia was administered by anesthesiologist. Patient positioned on a Shayla table and was given IV antibiotics. Time-out procedure was performed. The hip and thigh were prepped with alcohol followed by Hibiclens. The thigh was draped in the usual sterile fashion. Clean Air Suite was used for this procedure. The procedure began with a 5-inch incision over the anterolateral thigh. Subcutaneous tissue was dissected with Bovie. The fascia over the tensa fasciae latae was incised. Care was taken to avoid injury to the lateral femoral cutaneous nerve. The tensor muscle was retracted laterally. Sartorius was retracted medially. Retractors were now placed. The reflected head of the rectus is now elevated. A capsulotomy was performed over the anterior head capsule. Sutures were placed to help retract the capsule. At this point the femoral head and neck were identified. With soft tissue protected, oscillating saw was used to make a cut through the femoral neck, the femoral head was now removed. At this point attention was turned to preparation of the acetabulum. The labrum was excised. The acetabulum was sequentially reamed up to size [48]. A Dupo cup was now placed. Fluoroscopy was used to aid in identification of appropriate version. Cup was fully impacted and found to have excellent fit. Hole eliminator was now placed. The liner was now impacted into the cup. At this point the hip was externally rotated. A hook was placed around the proximal femur. The capsule was released off the lateral and medial femur. The hip was now extended and adducted. Retractors were placed around the proximal femur to allow for exposure. A box osteotome was used to remove the lateral cortex of the femoral neck. A broach was used to help lateralize the prosthesis. Canal finder was used to create a path down the canal. Next, the canal was sequentially broached up to size [11]. This was found to be an excellent fit. Calcar planer was placed. A standard head was placed, and the hip was reduced. The hip was found to have excellent stability with good range of motion. The leg lengths were measured under fluoroscopy and found to be equal compared to preoperatively. Trial broach was removed. The Corail stem was opened. Stem was fully impacted into the proximal femur in appropriate version. The femoral head was placed. The hip was again reduced. Fluoroscopy confirmed excellent alignment of prosthesis. The wound was thoroughly irrigated and capsule was closed with #1 Vicryl. The fascia over the tensor fasciae muscle was closed with #1 Vicryl, subcutaneous tissue was closed with 3-0 Vicryl and the skin was closed with drea and Dermabond skin closure. The capsule layers, muscle, and subcutaneous tissue were injected with a mixture of saline and bupivicaine. Dressings were applied. The patient was transferred to Recovery Room in stable condition. Bob Tilley MD Feb 05, 2017 16:11
[2017-02-05] MEDS ORDERED: NALOXONE HCL 0.4 MG/ML AMP IV PRN (16:15)
[2017-02-05] MEDS ORDERED: Post-op Orders (for Pharmacy) MISC XX ONE (16:15)
[2017-02-05] MEDS ORDERED: ONDANSETRON HCL 4 MG/2 ML VIAL IVP PRN (16:15)
[2017-02-05] MEDS ORDERED: ALBUTEROL SULFATE 90 MCG/ACT HFA 8 GM INHALER INH PRN (16:15)
[2017-02-05] MEDS ORDERED: DEXTROSE 50% IN WATER 50 ML SYRINGE IV PUSH PRN (16:15)
[2017-02-05] MEDS ORDERED: GLUCAGON 1 MG/ML VIAL OTHER PRN (16:15)
[2017-02-05] MEDS ORDERED: SODIUM CHLORIDE 0.9% FLUSH 5 ML FLUSH IVF PRN (16:15)
[2017-02-05] MEDS ORDERED: ACETAMINOPHEN/HYDROcodone 325 MG/7.5 MG TAB PO PRN (16:15)
[2017-02-05] MEDS: LACTATED RINGER'S 1000 ML INJ 1,000 ML IV SCH (16:45)
[2017-02-05] MEDS ORDERED: *HYDROmorphone PF 1 MG VIAL PERIprocedural Use ONLY ONE (16:49)
[2017-02-05] MEDS: KETOROLAC TROMETHAMINE 30 MG/ML (IVP) VIAL IV PUSH SCH (17:00)
[2017-02-05] MEDS: INSULIN NovoLIN REGULAR SUPPLEMENTAL SCALE SQ SCH ×2 (17:00→21:00)
[2017-02-05] MEDS ORDERED: *MEPERIDINE 25 MG INJ VIAL PERIprocedural Use ONLY ONE (17:03)
--- NOTE | 2017-02-05 17:18 | RADRPT ---
EXAM DATE/TIME: 02/05/2017 16:35 [facility] COMPARISON: CHEST SINGLE AP, August 24, 2016, 12:03. INDICATIONS : Post op left hip surgery. MEDICAL HISTORY : Chronic obstructive pulmonary disease. Carcinoma, colon. Cardiovascular disease. Hypertension. SURGICAL HISTORY : Bowel resection. ENCOUNTER: Initial ACUITY: 1 day PAIN SCORE: 8/10 LOCATION: Left Hip. FINDINGS: The patient is post left hip arthroplasty. Orthopedic hardware is in excellent position. There is a s urgical drain in place. There are skin drea in place. CONCLUSION: Uncomplicated left hip arthroplasty. Hardware is well-positioned. Ted Oseguera MD on February 05, 2017 at 17:16 Board Certified Radiologist. This report was verified electronically.
[2017-02-05] MEDS ORDERED: DO NOT ADM ANY ANTICOAGULANT DRUGS PRN (17:30)
--- NOTE | 2017-02-05 17:30 | RADRPT ---
EXAM DATE/TIME: 02/05/2017 14:45 [facility] COMPARISON: FLUOROSCOPY PORTABLE UP TO 1HR, February 05, 2017, 0:00. INDICATIONS : Left anterior hip in the operating room. MEDICAL HISTORY : Chronic obstructive pulmonary disease. Carcinoma, colon. Hypertension. Cardiovascular disease SURGICAL HISTORY : Bowel resection ENCOUNTER: Subsequent ACUITY: 1 day PAIN SCORE: Non-responsive. LOCATION: Left pelvis FINDINGS: The patient is post left hip arthroplasty. The orthopedic hardware is in excellent position. There is no evidence of complication. CONCLUSION: 1. Orthopedic hardware in excellent position. Ted Oseguera MD on February 05, 2017 at 17:28 Board Certified Radiologist. This report was verified electronically.
[2017-02-05] MEDS ORDERED: TRANEXAMIC ACID INJ 1,000 MG in SODIUM CHLORIDE 0.9% INJ 100 ML IV ONE (17:34)
[2017-02-05 19:02] VITALS: BP 95/61; PULSE 91; RESP 18; TEMP 96.7; O2SAT 98
[2017-02-05] MEDS: HYDROmorphone HCL PF 1 MG/ML VIAL IV PUSH PRN (19:32)
[2017-02-05] MEDS: ceFAZolin 2 GM PREMIX 50 ML IV SCH (19:32)
[2017-02-05] MEDS: SODIUM CHLORIDE 0.9% FLUSH 5 ML FLUSH IVF SCH (21:00)
[2017-02-05] MEDS: BUDESONIDE-FORMOTEROL 80/4.5 MCG INHALER INH SCH (21:14)
[2017-02-05] MEDS: ATORVASTATIN 40 MG TAB PO SCH (21:15)
[2017-02-05] MEDS: ACETAMINOPHEN/HYDROcodone 325 MG/10 MG TAB PO PRN (23:35)
[2017-02-05 23:39] VITALS: BP 117/66; PULSE 95; RESP 18; TEMP 97.4; O2SAT 99
[2017-02-06] VITALS (8 sets, daily range): BP systolic 96–110; BP diastolic 58–68; PULSE 67–93; RESP 17–18; TEMP 96.3–97.7; O2SAT 97–100
[2017-02-06] MEDS: ceFAZolin 2 GM PREMIX 50 ML IV SCH ×2 (01:02→07:40)
[2017-02-06] MEDS: VANCOMYCIN INJ 1,000 MG in SODIUM CHLOR 0.9% 250 ML INJ 250 ML IV SCH ×2 (01:34→12:47)
[2017-02-06] MEDS: ACETAMINOPHEN/HYDROcodone 325 MG/10 MG TAB PO PRN ×6 (02:38→23:17)
[2017-02-06] MEDS: KETOROLAC TROMETHAMINE 30 MG/ML (IVP) VIAL IV PUSH SCH ×2 (04:24→17:02)
[2017-02-06] MEDS: LACTATED RINGER'S 1000 ML INJ 1,000 ML IV SCH ×2 (04:25→17:07)
[2017-02-06 05:47] LABS: HEMATOCRIT 22.7 % (39.0-51.0); REVIEW FLAG FINAL
[2017-02-06] MEDS: PANTOPRAZOLE SOD 40 MG DELAYED RELEASE TAB PO SCH (07:37)
[2017-02-06] MEDS: DILTIAZEM HCL 30 MG TAB PO SCH (07:37)
[2017-02-06] MEDS: FERROUS SULFATE 325 MG (65 MG ELEMENTAL IRON) TAB PO SCH (07:37)
[2017-02-06] MEDS: metFORMIN HCL 500 MG TAB PO SCH (07:40)
[2017-02-06] MEDS: LISINOPRIL 10 MG TAB PO SCH (07:43)
[2017-02-06] MEDS: FUROSEMIDE 20 MG TAB PO SCH (07:47)
[2017-02-06] MEDS: SODIUM CHLORIDE 0.9% FLUSH 5 ML FLUSH IVF SCH ×2 (07:48→20:27)
[2017-02-06] MEDS: BUDESONIDE-FORMOTEROL 80/4.5 MCG INHALER INH SCH ×2 (07:50→20:28)
[2017-02-06] MEDS: INSULIN NovoLIN REGULAR SUPPLEMENTAL SCALE SQ SCH ×4 (08:36→20:27)
--- NOTE | 2017-02-06 10:19 | PD.ORT.PN ---
Subjective Subjective Remarks POD 1 s/p Left Anterior SANDY doing well. reports pain but controlled. out of bed yesterday and stood. did not walk Objective Vitals Vital Signs Date Time Temp Pulse Resp B/P (MAP) Pulse Ox O2 Delivery O2 Flow Rate FiO2 02/06/17 08:00 96.7 86 18 104/64 (77) 100 02/06/17 03:59 97.6 82 18 96/58 (71) 97 02/05/17 23:39 97.4 95 18 117/66 (83) 99 02/05/17 19:02 96.7 91 18 95/61 (72) 98 02/05/17 17:39 87 16 96 Room Air 02/05/17 17:30 87 16 137/70 (92) 95 Nasal Cannula 2 02/05/17 17:15 89 16 142/66 (91) 95 Nasal Cannula 2 02/05/17 17:00 96 18 157/76 (103) 99 Nasal Cannula 2 02/05/17 16:45 98.3 110 18 161/77 (105) 100 Nasal Cannula 2 I/O 02/05/17 02/05/17 02/05/17 02/06/17 02/06/17 02/06/17 07:00 15:00 23:00 07:00 15:00 23:00 Intake Total 250 ml 1980 ml 1955 ml Output Total 230 ml 920 ml Balance 250 ml 1750 ml 1035 ml Intake Oral 480 ml 480 ml IV Total 250 ml 1500 ml 1475 ml Output Urine Total 50 ml 650 ml Drainage Total 30 ml 270 ml Estimated Blood Loss 150 ml # Voids 1 # Bowel Movements 0 0 Result Diagram: 02/06/17 0451 Imaging Last 24 hours Impressions Hip and Pelvis X-Ray 02/05/17 1607 Signed Impressions: Service Date/Time: Sunday, February 05, 2017 16:35 - CONCLUSION: Uncomplicated left hip arthroplasty. Hardware is well-positioned. Ted Oseguera MD Objective Remarks LLE: dressings clean and dry. intact.. +drain. NVI Assessment & Plan Assessment and Plan 1) Left Anterior SANDY - POD 1 -WBAT -daily dressing changes -DC drain today -plan for home with [facility] -clear for DC home today if doing well with therapy and comfortable going home. otherwise, ok to stay one more night -f/u with Richie or DENISE in 2 weeks Cecilio Herrera Feb 06, 2017 10:19
[2017-02-06] MEDS: HYDROmorphone HCL PF 1 MG/ML VIAL IV PUSH PRN (10:58)
[2017-02-06] MEDS ORDERED: ENOXAPARIN SODIUM 40 MG/0.4 ML SYRINGE SQ SCH (16:00)
[2017-02-06] MEDS: DOCUSATE SODIUM 100 MG CAP PO SCH (20:27)
[2017-02-06] MEDS: ATORVASTATIN 40 MG TAB PO SCH (20:27)
[2017-02-07] MEDS: ACETAMINOPHEN/HYDROcodone 325 MG/10 MG TAB PO PRN ×3 (04:25→11:37)
[2017-02-07] MEDS: KETOROLAC TROMETHAMINE 30 MG/ML (IVP) VIAL IV PUSH SCH (04:26)
[2017-02-07] MEDS: LACTATED RINGER'S 1000 ML INJ 1,000 ML IV SCH (05:16)
--- NOTE | 2017-02-07 07:08 | PD.ORT.PN ---
Subjective Subjective Remarks POD 2 s/p Left Anterior SANDY doing well. reports pain but controlled. out of bed and ambulating on own with walker Objective Vitals Vital Signs Date Time Temp Pulse Resp B/P (MAP) Pulse Ox O2 Delivery O2 Flow Rate FiO2 02/06/17 23:32 97.4 89 18 102/60 (74) 98 02/06/17 19:50 97.7 67 18 109/68 (82) 98 02/06/17 19:21 Room Air 02/06/17 18:40 97 02/06/17 16:00 96.3 93 18 110/61 (77) 97 02/06/17 12:00 96.7 84 17 110/58 (75) 97 02/06/17 10:35 99 02/06/17 08:00 96.7 86 18 104/64 (77) 100 I/O 02/06/17 02/06/17 02/06/17 02/07/17 02/07/17 02/07/17 07:00 15:00 23:00 07:00 15:00 23:00 Intake Total 1955 ml 770 ml 720 ml 720 ml Output Total 920 ml 25 ml 400 ml Balance 1035 ml 770 ml 695 ml 320 ml Intake Oral 480 ml 520 ml 720 ml 720 ml IV Total 1475 ml 250 ml Output Urine Total 650 ml 400 ml Drainage Total 270 ml 25 ml # Voids 3 6 6 # Bowel Movements 0 0 0 0 Result Diagram: 02/06/17 0451 Imaging Last 24 hours Impressions Hip and Pelvis X-Ray 02/05/17 1607 Signed Impressions: Service Date/Time: Sunday, February 05, 2017 16:35 - CONCLUSION: Uncomplicated left hip arthroplasty. Hardware is well-positioned. Ted Oseguera MD Objective Remarks LLE: dressings clean and dry. intact.. +drain. NVI Assessment & Plan Assessment and Plan 1) Left Anterior SANDY - POD 2 -WBAT -daily dressing changes -plan for home with [facility] today -clear for DC home today if doing well with therapy and comfortable going home. -repeat H/H this AM prior to DC -f/u with Richie or DENISE in 2 weeks Cecilio Herrera Feb 07, 2017 07:08
--- NOTE | 2017-02-07 07:19 | HHI.DS ---
Discharge Summary Admission Date Feb 05, 2017 at 09:09 Discharge Date: Feb 07, 2017 Admitting Diagnosis Left hip osteoarthritis Diagnosis: (1) S/P total hip arthroplasty Diagnosis: Principal ICD Codes: Z96.649 - Presence of unspecified artificial hip joint Procedures Left anterior total hip arthroplasty CBC/BMP: 02/06/17 0451 Significant Findings Laboratory Tests Test 02/06/17 04:51 Hemoglobin 7.6 GM/DL (13.0-17.0) Hematocrit 22.7 % (39.0-51.0) PE at Discharge LLE: dressings clean and dry. intact.. +drain. NVI Hospital Course patient admitted from outpatient basis for elective left total hip arthroplasty. Tolerated the procedure well. Was admitted 6 north. Was out of bed on postoperative 0 standing at bedside. By postoperative day 1 was ambulating well with a walker. His pain was well-controlled, he is hemodynamically stable, was fit for discharge home with home health care on postoperative day 2. His drain was discontinued on postoperative day 1. He will do daily dressing changes and keep his incision clean and dry. He will fully weight-bear. He will follow-up in the office of Dr. Tilley or his PA in 2 weeks Pt Condition on Discharge: Good Discharge Disposition: Disch w/ Home Health Serv Discharge Instructions Diet Instructions: As Tolerated, No Restrictions Activities You Can Perform: Weight Bearing as Twin Follow up Referrals: Orthopedics - 2 Weeks @ [facility] with Bob Tilley MD SNF/[facility]/ with [facility] New Medications: Hydrocodone-Acetaminophen (Hydrocodone-Acetaminophen) 10-325 mg Tab 1 TAB PO Q4H PRN for PAIN, #60 TAB 0 Refills Rivaroxaban (Xarelto) 10 Mg Tab 10 MG PO DAILY for Blood Clot Prevention, #14 TAB 0 Refills Walker/Adult/Folding (Walker/Adult/Folding) 1 Mis Mis EA .ROUTE DIRECTED, #1 0 Refills Continued Medications: Albuterol 18 GM Inh (Ventolin Hfa 18 GM Inh) 90 Mcg/Act Aer 2 PUFF INH Q4-6H PRN for SHORTNESS OF BREATH, #1 INHALER 0 Refills Atorvastatin (Atorvastatin) 40 Mg Tab 40 MG PO HS for Cholesterol Management, #30 TAB 0 Refills Diltiazem (Diltiazem) 30 Mg Tab 30 MG PO DAILY for Angina, #120 TAB 0 Refills Ferrous Sulfate (Iron) 325 Mg Cap 325 MG PO DAILY for Nutritional Supplement, #30 TAB 0 Refills Fluticasone-Salmeterol Inh (Advair Diskus Inh) 100-50 Mcg/Blist Aer 1 PUFF INH BID for Asthma Management, #1 INHALER 0 Refills Rinse mouth after use. Furosemide (Furosemide) 20 Mg Tab 20 MG PO DAILY, #30 TAB 0 Refills Lisinopril (Lisinopril) 10 Mg Tab 10 MG PO DAILY, #30 TAB 0 Refills Metformin (Metformin) 500 Mg Tab 500 MG PO DAILY for Blood Sugar Management, #30 TAB 0 Refills With a meal Omeprazole (Omeprazole) 40 Mg Cap 40 MG PO DAILY, #30 CAP 0 Refills Discontinued Medications: Hydrocodone-Acetaminophen (Hydrocodone-Acetaminophen) 7.5-325 mg Tab 1 TAB PO Q4H PRN for PAIN 1- 10, #20 TAB 0 Refills Cecilio Herrera Feb 07, 2017 07:19
[2017-02-07 08:00] VITALS: BP 119/66; PULSE 85; RESP 18; TEMP 97.4; O2SAT 100
[2017-02-07 08:06] LABS: HEMATOCRIT 22.3 % (39.0-51.0); REVIEW FLAG FINAL
[2017-02-07] MEDS: DILTIAZEM HCL 30 MG TAB PO SCH (08:43)
[2017-02-07] MEDS: FERROUS SULFATE 325 MG (65 MG ELEMENTAL IRON) TAB PO SCH (08:43)
[2017-02-07] MEDS: FUROSEMIDE 20 MG TAB PO SCH (08:43)
[2017-02-07] MEDS: metFORMIN HCL 500 MG TAB PO SCH (08:43)
[2017-02-07] MEDS: LISINOPRIL 10 MG TAB PO SCH (08:43)
[2017-02-07] MEDS: PANTOPRAZOLE SOD 40 MG DELAYED RELEASE TAB PO SCH (08:43)
[2017-02-07] MEDS: DOCUSATE SODIUM 100 MG CAP PO SCH (08:43)
[2017-02-07] MEDS: SODIUM CHLORIDE 0.9% FLUSH 5 ML FLUSH IVF SCH (08:44)
[2017-02-07] MEDS: BUDESONIDE-FORMOTEROL 80/4.5 MCG INHALER INH SCH (08:47)
[2017-02-07] MEDS: INSULIN NovoLIN REGULAR SUPPLEMENTAL SCALE SQ SCH ×2 (09:07→12:00)
[2017-02-07] MEDS ORDERED: INFLUENZA VIRUS VACCINE (QUADRIVALENT) 0.5 ML SYR IM ONE (10:00)
[2017-02-07 12:00] VITALS: BP 127/77; PULSE 89; RESP 18; TEMP 96.2; O2SAT 99
== END 2017-02-07 14:49 | disposition home health service (06) | DRG 470 ==
LOC: HSDI 09:09 → N06B 17:55
PROVIDERS: ADMIT Orthopaedic Surgery Orthopaedic Trauma; ATTEND Orthopaedic Surgery Orthopaedic Trauma
PROC: 0SRB04A Replacement of Left Hip Joint with Ceramic on Polyethylene Synthetic Substitute, Uncemented, Open Approach (ICD-10-PCS; principal; 2017-02-05 14:11)
DX: M16.12 Unilateral primary osteoarthritis, left hip (principal); I10 Essential (primary) hypertension; E78.5 Hyperlipidemia, unspecified; J44.9 Chronic obstructive pulmonary disease, unspecified; G89.29 Other chronic pain; M54.5 Low back pain; K21.9 Gastro-esophageal reflux disease without esophagitis; Z85.038 Personal history of other malignant neoplasm of large intestine; Z87.891 Personal history of nicotine dependence; Z23 Encounter for immunization
CPT/HCPCS: 73501; 73502; 76000; 82948; 85014; 85018; 86850; 86900; 86901; 90471; 90686; C1776; C9290; G0008; J0690; J1100; J1170; J1200; J1580; J1650; J1885; J2175; J2250; J2370; J2405; J2710; J3010; J3370; J7050; J7120; Q2038

== ENCOUNTER 2018-03-27 09:48 | Inpatient (IN) ==
[2018-03-27] MEDS ORDERED: Sod Chloride 0.9% Inj 1,000 ML IV.SIG ONE (13:27)
[2018-03-27] MEDS ORDERED: Pantoprazole Inj 40 MG Vial IV.PUSH ONE (13:27)
[2018-03-27] MEDS ORDERED: Ketorolac Inj 30 MG/ML (IVP) Vial IV.PUSH ONE (13:31)
--- NOTE | 2018-03-27 13:39 | ED ---
HPI General Chief Complaint: Abdominal Pain Stated Complaint: Abd Pain Time Seen by Provider: 03/27/18 13:22 Source: patient, RN notes reviewed and old records reviewed Mode of arrival: ambulatory Limitations: no limitations History of Present Illness HPI narrative: The patient is a 62-year-old male with history of colon cancer status post resection in 2001, COPD and CHF presented with complaint of lower abdominal pain nausea and diarrhea. He states that he has been having diarrhea for a while now but in the past 4 days he has been experiencing spasms and increased nausea. He had a C. difficile enteritis and colitis last year also diagnosis of H. pylori per his GI for which he was treated. Reports no urinary symptoms and decreased appetite. States that his diarrhea is very watery at all times. MD complaint: Reports abdominal pain Onset (ago): day(s) (4) Pain Consistency: constant Location: Reports periumbilical Severity: moderate Severity scale (1-10): 7 Quality: Reports cramping Radiation: Reports none Migration to: Reports no migration Relieving factors: nothing Exacerbating factors: nothing Context: Denies foreign travel, possible food poisoning, sick contacts, recent antibiotic use, recent surgery/procedure, recent injury and history of similar episodes Associated symptoms: Reports nausea, vomiting and diarrhea; Denies fever, chills , constipation, dysuria, hematemesis, hematochezia, melena, hematuria, anorexia and syncope Treatments prior to arrival: Denies NSAIDs, prescription analgesics and antacids Related Data Home Medications Medication Instructions Recorded Confirmed albuterol sulfate [Ventolin HFA] 2 puff INHALATION Q4-6H PRN 03/27/18 03/27/18 ascorbic acid (vitamin C) [Vitamin 500 mg PO DAILY 03/27/18 03/27/18 C] atorvastatin 40 mg PO DAILY 03/27/18 03/27/18 diltiazem HCl 30 mg PO DAILY 03/27/18 03/27/18 ferrous sulfate [iron] 325 mg PO DAILY 03/27/18 03/27/18 furosemide [Lasix] 20 mg PO DAILY 03/27/18 03/27/18 lisinopril 10 mg PO DAILY 03/27/18 03/27/18 metformin 500 mg PO DAILY 03/27/18 03/27/18 multivitamin 1 tab PO DAILY 03/27/18 03/27/18 omeprazole 20 mg PO BID 03/27/18 03/27/18 pantoprazole 40 mg PO DAILY 03/27/18 03/27/18 ranitidine HCl [Zantac] 150 mg PO HS 03/27/18 03/27/18 Allergies Allergy/AdvReac Type Severity Reaction Status Date / Time morphine Allergy Severe Itching Verified 03/28/18 16:24 chlorhexidine Allergy Unknown rash/itchin Verified 03/27/18 10:00 g diatrizoate meglumine AdvReac Mild Vomiting Verified 03/28/18 16:24 gadobenic acid AdvReac Mild Vomiting Verified 03/28/18 16:24 gadodiamide AdvReac Mild Vomiting Verified 03/28/18 16:24 gadoteridol AdvReac Mild Vomiting Verified 03/28/18 16:24 Iodinated Contrast- Oral and AdvReac Mild Nausea/Vomi Verified 03/28/18 16:24 IV Dye ting iodixanol AdvReac Mild Vomiting Verified 03/28/18 16:24 iohexol AdvReac Mild Vomiting Verified 03/28/18 16:24 Review of Systems ROS: all other systems reviewed are negative Constitutional Denies body ache(s), Denies chills, Denies fever(s) and Reports malaise Gastrointestinal Reports abdominal pain, Denies belching, Denies melena, Denies bloating, Denies hematochezia, Reports change in bowel habits, Denies tenesmus, Denies change in stool character, Denies coffee ground emesis, Denies constipation, Reports cramping, Denies dysphagia, Denies excessive flatus, Denies early satiety, Denies dyspepsia, Denies heartburn, Denies fecal incontinence, Reports diarrhea , Reports loose stools, Reports nausea, Denies odynophagia, Reports vomiting and Denies hematemesis Genitourinary Reports system reviewed and no additional complaints, except as docu PMFSH History History Provided By: Patient and Medical Record Medical History Medical History CHF (congestive heart failure) (Acute) COPD (chronic obstructive pulmonary disease) (Acute) Colon cancer (Acute) Social History Social History Substance History: Past History Second Hand Smoke Exposure: No Smoking Status: Former smoker Tobacco Type: Cigarettes How Often Do You Have a Drink Containing Alcohol: Never Recent Travel in [facility] within the Last 8 Weeks: No Recent Out of Country Travel within the Last 8 Weeks: No Exam Narrative Exam Narrative: GENERAL: Alert and oriented in no distress. Well-nourished well -developed. SKIN: Focused skin assessment warm/dry. HEAD: Atraumatic. Normocephalic. EYES: Pupils equal and round. No scleral icterus. No injection or drainage. ENT: No nasal bleeding or discharge. Mucous membranes pink and moist. NECK: Trachea midline. No JVD. CARDIOVASCULAR: Regular rate and rhythm. No murmur appreciated. RESPIRATORY: No accessory muscle use. Clear to auscultation. Breath sounds equal bilaterally. GASTROINTESTINAL: Abdomen soft, tender to palpation on the lower abdominal area. No rebound tenderness. Voluntary guarding. Normal bowel sounds on all quadrants nondistended. Hepatic and splenic margins not palpable. MUSCULOSKELETAL: No obvious deformities. No clubbing. No cyanosis. No edema. NEUROLOGICAL: Awake and alert. No obvious cranial nerve deficits. Motor grossly within normal limits. Normal speech. PSYCHIATRIC: Appropriate mood and affect; insight and judgment normal. Course Reevaluation(s) Reevaluation #1: Patient is resting comfortably no distress stable vitals blood pressure 121/72 pulse of 77 afebrile. Time: 16:56 Initial Documented Vital Signs Temperature 98.0 F 03/27/18 09:58 Pulse Rate 96 H 03/27/18 09:58 Respiratory Rate 20 03/27/18 09:58 Blood Pressure 121/72 03/27/18 09:58 Pulse Oximetry 98 03/27/18 09:58 Last Documented Vital Signs Temperature 97.7 F 03/28/18 16:00 Pulse Rate 66 03/28/18 16:00 Respiratory Rate 20 03/28/18 16:00 Blood Pressure 98/57 L 03/28/18 16:00 Pulse Oximetry 97 03/28/18 16:00 Medical Decision Making [facility] Narrative Medical decision making narrative: Patient with diarrhea and greenish stool as well as equivocal findings on UA for possible urinary tract infection. Has no WBC elevation but he does have neutrophil shift. He was started on cefepime because of the above-mentioned reasons. In addition to that his potassium 7.0. and was treated with 6 units of IV insulin and D50 . He was also given calcium gluconate and an EKG is pending at this time. The patient is hemodynamically stable not appearing septic alert and oriented aware of condition and plan of care. No Kayexalate was given due to Diarrhea. Cultures obtained prior to starting Cefepime. Medical Screen Exam Complete: Yes Emergency Medical Condition: Yes Medical Records Medical records reviewed: Yes I reviewed the patient's medical records. Lab Data Lab results reviewed: Yes I reviewed the patient's lab results. Result diagrams: 03/28/18 04:37 03/28/18 04:37 Lab Results 03/27/18 03/27/18 03/27/18 Range/Units 13:45 13:45 14:10 WBC 8.8 (4.0-11.0) th/mm3 RBC 3.84 L (4.50-5.90) mil/mm3 Hgb 12.2 L (13.0-17.0) gm/dL Hct 35.8 L (39.0-51.0) % MCV 93.4 (80.0-100.0) fL MCH 31.8 (27.0-34.0) pg MCHC 34.1 (32.0-36.0) % RDW 13.5 (11.6-17.2) % Plt Count 219 (150-450) th/mm3 MPV 6.9 L (7.0-11.0) fL Neut % (Auto) 82.3 H (16.0-70.0) % Lymph % (Auto) 10.2 (9.0-44.0) % Sutter % (Auto) 5.5 (0.0-8.0) % Eos % (Auto) 1.7 (0.0-4.0) % Baso % (Auto) 0.3 (0.0-2.0) % Neut # (Auto) 7.3 (1.8-7.7) th/mm3 Lymph # (Auto) 0.9 L (1.0-4.8) th/mm3 Sutter # (Auto) 0.5 (0.0-0.9) th/mm3 Eos # (Auto) 0.2 (0.0-0.4) th/mm3 Baso # (Auto) 0.0 (0.0-0.2) th/mm3 WBC Differential . Differential Comment Auto diff final Sodium (136-145) meq/L Potassium (3.5-5.1) meq/L Chloride (98-107) meq/L Carbon Dioxide (21.0-32.0) meq/L Anion Gap (5-15) meq/L BUN (7-18) mg/dL Creatinine (0.60-1.30) mg/dL Estimated GFR (>89) mL/min POC Glucose (68-110) mg/dl Random Glucose (74-106) mg/dL Calcium (8.5-10.1) mg/dL Magnesium (1.5-2.5) mg/dL Total Bilirubin (0.2-1.0) mg/dL AST (15-37) U/L ALT (12-78) U/L Alkaline Phosphatase (45-117) U/L Troponin I (0.02-0.05) ng/mL Total Protein (6.4-8.2) g/dL Albumin (3.4-5.0) g/dL Lipase (73-393) U/L Urine Color Yellow (Yellw/Straw) Urine Clarity Hazy H (Clear) Urine pH 5.0 (5.0-8.5) Ur Specific Diablo 1.011 (1.002-1.035) Urine Protein Negative (Neg-Trace) mg/dL Urine Glucose (UA) Negative (Negative) mg/dL Urine Ketones Negative (Negative) mg/dL Urine Occult Blood Large H (Negative) Urine Nitrate Negative (Negative) Urine Bilirubin Negative (Negative) Urine Urobilinogen Less than 2 (Less than 2) mg/dL Ur Leukocyte Esterase Trace H (Negative) Urine RBC 12 H (0-3) /hpf Urine WBC 2 (0-5) /hpf Ur Squamous Epith Cells 2 (0-5) /hpf Urine Bacteria Occasional H (None) /hpf Hyaline Casts 5 (0-3) /lpf Urine Mucus Few H (Occasional) /lpf Micro UA Comment Culture not ind Ur Microscopic Review Not Reportable Urine Culture Comments Culture not ind Stl C.difficile DNA Amp Negative (Negative) St C. diff Tox Epid 027 Negative (Negative) 03/27/18 03/27/18 03/27/18 Range/Units 14:10 20:33 20:45 WBC (4.0-11.0) th/mm3 RBC (4.50-5.90) mil/mm3 Hgb (13.0-17.0) gm/dL Hct (39.0-51.0) % MCV (80.0-100.0) fL MCH (27.0-34.0) pg MCHC (32.0-36.0) % RDW (11.6-17.2) % Plt Count (150-450) th/mm3 MPV (7.0-11.0) fL Neut % (Auto) (16.0-70.0) % Lymph % (Auto) (9.0-44.0) % Sutter % (Auto) (0.0-8.0) % Eos % (Auto) (0.0-4.0) % Baso % (Auto) (0.0-2.0) % Neut # (Auto) (1.8-7.7) th/mm3 Lymph # (Auto) (1.0-4.8) th/mm3 Sutter # (Auto) (0.0-0.9) th/mm3 Eos # (Auto) (0.0-0.4) th/mm3 Baso # (Auto) (0.0-0.2) th/mm3 WBC Differential Differential Comment Sodium 139 (136-145) meq/L Potassium 7.0 H* 6.2 H D (3.5-5.1) meq/L Chloride 116 H (98-107) meq/L Carbon Dioxide 18.6 L (21.0-32.0) meq/L Anion Gap 4 L (5-15) meq/L BUN 47 H (7-18) mg/dL Creatinine 2.30 H (0.60-1.30) mg/dL Estimated GFR 29 L (>89) mL/min POC Glucose 86 (68-110) mg/dl Random Glucose 103 (74-106) mg/dL Calcium 9.3 (8.5-10.1) mg/dL Magnesium 2.1 (1.5-2.5) mg/dL Total Bilirubin 0.3 (0.2-1.0) mg/dL AST 10 L (15-37) U/L ALT 24 (12-78) U/L Alkaline Phosphatase 75 (45-117) U/L Troponin I Less than 0.02 L (0.02-0.05) ng/mL Total Protein 8.1 (6.4-8.2) g/dL Albumin 4.1 (3.4-5.0) g/dL Lipase 632 H (73-393) U/L Urine Color (Yellw/Straw) Urine Clarity (Clear) Urine pH (5.0-8.5) Ur Specific Diablo (1.002-1.035) Urine Protein (Neg-Trace) mg/dL Urine Glucose (UA) (Negative) mg/dL Urine Ketones (Negative) mg/dL Urine Occult Blood (Negative) Urine Nitrate (Negative) Urine Bilirubin (Negative) Urine Urobilinogen (Less than 2) mg/dL Ur Leukocyte Esterase (Negative) Urine RBC (0-3) /hpf Urine WBC (0-5) /hpf Ur Squamous Epith Cells (0-5) /hpf Urine Bacteria (None) /hpf Hyaline Casts (0-3) /lpf Urine Mucus (Occasional) /lpf Micro UA Comment Ur Microscopic Review Urine Culture Comments Stl C.difficile DNA Amp (Negative) St C. diff Tox Epid 027 (Negative) 03/28/18 03/28/18 03/28/18 Range/Units 01:03 04:28 04:37 WBC 4.2 D (4.0-11.0) th/mm3 RBC 3.51 L (4.50-5.90) mil/mm3 Hgb 11.0 L (13.0-17.0) gm/dL Hct 32.6 L (39.0-51.0) % MCV 93.0 (80.0-100.0) fL MCH 31.3 (27.0-34.0) pg MCHC 33.6 (32.0-36.0) % RDW 13.5 (11.6-17.2) % Plt Count 179 (150-450) th/mm3 MPV 7.3 (7.0-11.0) fL Neut % (Auto) 64.0 (16.0-70.0) % Lymph % (Auto) 24.7 (9.0-44.0) % Sutter % (Auto) 6.5 (0.0-8.0) % Eos % (Auto) 4.1 H (0.0-4.0) % Baso % (Auto) 0.7 (0.0-2.0) % Neut # (Auto) 2.7 (1.8-7.7) th/mm3 Lymph # (Auto) 1.0 (1.0-4.8) th/mm3 Sutter # (Auto) 0.3 (0.0-0.9) th/mm3 Eos # (Auto) 0.2 (0.0-0.4) th/mm3 Baso # (Auto) 0.0 (0.0-0.2) th/mm3 WBC Differential . Differential Comment Auto diff final Sodium (136-145) meq/L Potassium (3.5-5.1) meq/L Chloride (98-107) meq/L Carbon Dioxide (21.0-32.0) meq/L Anion Gap (5-15) meq/L BUN (7-18) mg/dL Creatinine (0.60-1.30) mg/dL Estimated GFR (>89) mL/min POC Glucose 94 106 (68-110) mg/dl Random Glucose (74-106) mg/dL Calcium (8.5-10.1) mg/dL Magnesium (1.5-2.5) mg/dL Total Bilirubin (0.2-1.0) mg/dL AST (15-37) U/L ALT (12-78) U/L Alkaline Phosphatase (45-117) U/L Troponin I (0.02-0.05) ng/mL Total Protein (6.4-8.2) g/dL Albumin (3.4-5.0) g/dL Lipase (73-393) U/L Urine Color (Yellw/Straw) Urine Clarity (Clear) Urine pH (5.0-8.5) Ur Specific Diablo (1.002-1.035) Urine Protein (Neg-Trace) mg/dL Urine Glucose (UA) (Negative) mg/dL Urine Ketones (Negative) mg/dL Urine Occult Blood (Negative) Urine Nitrate (Negative) Urine Bilirubin (Negative) Urine Urobilinogen (Less than 2) mg/dL Ur Leukocyte Esterase (Negative) Urine RBC (0-3) /hpf Urine WBC (0-5) /hpf Ur Squamous Epith Cells (0-5) /hpf Urine Bacteria (None) /hpf Hyaline Casts (0-3) /lpf Urine Mucus (Occasional) /lpf Micro UA Comment Ur Microscopic Review Urine Culture Comments Stl C.difficile DNA Amp (Negative) St C. diff Tox Epid 027 (Negative) 03/28/18 03/28/18 03/28/18 Range/Units 04:37 04:37 07:46 WBC (4.0-11.0) th/mm3 RBC (4.50-5.90) mil/mm3 Hgb (13.0-17.0) gm/dL Hct (39.0-51.0) % MCV (80.0-100.0) fL MCH (27.0-34.0) pg MCHC (32.0-36.0) % RDW (11.6-17.2) % Plt Count (150-450) th/mm3 MPV (7.0-11.0) fL Neut % (Auto) (16.0-70.0) % Lymph % (Auto) (9.0-44.0) % Sutter % (Auto) (0.0-8.0) % Eos % (Auto) (0.0-4.0) % Baso % (Auto) (0.0-2.0) % Neut # (Auto) (1.8-7.7) th/mm3 Lymph # (Auto) (1.0-4.8) th/mm3 Sutter # (Auto) (0.0-0.9) th/mm3 Eos # (Auto) (0.0-0.4) th/mm3 Baso # (Auto) (0.0-0.2) th/mm3 WBC Differential Differential Comment Sodium 145 (136-145) meq/L Potassium 5.7 H (3.5-5.1) meq/L Chloride 123 H (98-107) meq/L Carbon Dioxide 14.6 L (21.0-32.0) meq/L Anion Gap 7 (5-15) meq/L BUN 41 H (7-18) mg/dL Creatinine 2.16 H (0.60-1.30) mg/dL Estimated GFR 31 L (>89) mL/min POC Glucose 106 (68-110) mg/dl Random Glucose 99 (74-106) mg/dL Calcium 8.4 L D (8.5-10.1) mg/dL Magnesium (1.5-2.5) mg/dL Total Bilirubin 0.2 (0.2-1.0) mg/dL AST 12 L (15-37) U/L ALT 19 (12-78) U/L Alkaline Phosphatase 64 (45-117) U/L Troponin I (0.02-0.05) ng/mL Total Protein 6.7 D (6.4-8.2) g/dL Albumin 3.3 L D (3.4-5.0) g/dL Lipase 336 (73-393) U/L Urine Color (Yellw/Straw) Urine Clarity (Clear) Urine pH (5.0-8.5) Ur Specific Diablo (1.002-1.035) Urine Protein (Neg-Trace) mg/dL Urine Glucose (UA) (Negative) mg/dL Urine Ketones (Negative) mg/dL Urine Occult Blood (Negative) Urine Nitrate (Negative) Urine Bilirubin (Negative) Urine Urobilinogen (Less than 2) mg/dL Ur Leukocyte Esterase (Negative) Urine RBC (0-3) /hpf Urine WBC (0-5) /hpf Ur Squamous Epith Cells (0-5) /hpf Urine Bacteria (None) /hpf Hyaline Casts (0-3) /lpf Urine Mucus (Occasional) /lpf Micro UA Comment Ur Microscopic Review Urine Culture Comments Stl C.difficile DNA Amp (Negative) St C. diff Tox Epid 027 (Negative) 03/28/18 Range/Units 12:24 WBC (4.0-11.0) th/mm3 RBC (4.50-5.90) mil/mm3 Hgb (13.0-17.0) gm/dL Hct (39.0-51.0) % MCV (80.0-100.0) fL MCH (27.0-34.0) pg MCHC (32.0-36.0) % RDW (11.6-17.2) % Plt Count (150-450) th/mm3 MPV (7.0-11.0) fL Neut % (Auto) (16.0-70.0) % Lymph % (Auto) (9.0-44.0) % Sutter % (Auto) (0.0-8.0) % Eos % (Auto) (0.0-4.0) % Baso % (Auto) (0.0-2.0) % Neut # (Auto) (1.8-7.7) th/mm3 Lymph # (Auto) (1.0-4.8) th/mm3 Sutter # (Auto) (0.0-0.9) th/mm3 Eos # (Auto) (0.0-0.4) th/mm3 Baso # (Auto) (0.0-0.2) th/mm3 WBC Differential Differential Comment Sodium (136-145) meq/L Potassium (3.5-5.1) meq/L Chloride (98-107) meq/L Carbon Dioxide (21.0-32.0) meq/L Anion Gap (5-15) meq/L BUN (7-18) mg/dL Creatinine (0.60-1.30) mg/dL Estimated GFR (>89) mL/min POC Glucose 125 H (68-110) mg/dl Random Glucose (74-106) mg/dL Calcium (8.5-10.1) mg/dL Magnesium (1.5-2.5) mg/dL Total Bilirubin (0.2-1.0) mg/dL AST (15-37) U/L ALT (12-78) U/L Alkaline Phosphatase (45-117) U/L Troponin I (0.02-0.05) ng/mL Total Protein (6.4-8.2) g/dL Albumin (3.4-5.0) g/dL Lipase (73-393) U/L Urine Color (Yellw/Straw) Urine Clarity (Clear) Urine pH (5.0-8.5) Ur Specific Diablo (1.002-1.035) Urine Protein (Neg-Trace) mg/dL Urine Glucose (UA) (Negative) mg/dL Urine Ketones (Negative) mg/dL Urine Occult Blood (Negative) Urine Nitrate (Negative) Urine Bilirubin (Negative) Urine Urobilinogen (Less than 2) mg/dL Ur Leukocyte Esterase (Negative) Urine RBC (0-3) /hpf Urine WBC (0-5) /hpf Ur Squamous Epith Cells (0-5) /hpf Urine Bacteria (None) /hpf Hyaline Casts (0-3) /lpf Urine Mucus (Occasional) /lpf Micro UA Comment Ur Microscopic Review Urine Culture Comments Stl C.difficile DNA Amp (Negative) St C. diff Tox Epid 027 (Negative) Imaging Data Radiologist's impression: Abdomen/Pelvis CT 03/27/18 13:27 CONCLUSION: 1. Chronic dilatation of the common duct. 2. Postsurgical findings at the ileocolic junction. 3. 3 mm nonobstructing calculus in the right kidney unchanged. 4. No acute findings in the abdomen and pelvis. Discharge Plan Discharge Disposition Patient Disposition: 30 Still Patient Discharge Condition Condition: Good Discharge Details Diagnosis: Acute hyperkalemia, Diarrhea, Acute prerenal azotemia, Acute UTI Physicians Team ED Provider: Wood Paniagua Primary Care Provider: UNKNOWN, Attending Provider: Triston Mcgregor Other Providers: Deirdre Frey Status ED Status: Left Department Discharge Information Discharge Date/Time: 03/27/18 19:23
[2018-03-27] MEDS ORDERED: Pantoprazole Inj 80 MG in Sodium Chlor 0.9% Inj 100 ML IV.CONT SCH (14:00)
[2018-03-27 14:16] LABS: Bacteria,Urine Occasional /hpf; Bilirubin,Urine Negative (Negative); Clarity,Urine Hazy (Clear); Color,Urine Yellow (Yellw/Straw); Glucose,Urine (UA) Negative (Negative); Hyaline Casts,Urine 5 /lpf (0-3); Leukocyte Esterase,Urine Trace (Negative); Mucus,Urine Few /lpf (Occasional); Nitrite,Urine Negative (Negative); Specific Gravity,Urine 1.011 (1.002-1.035); Squamous Epithelial Cell,Urine 2 /hpf (0-5)
--- NOTE | 2018-03-27 14:28 | CT ---
EXAM DATE: 03/27/2018 2:02 PM EST AGE/SEX: 62 years / Male INDICATIONS: Abdominal pain and nausea for four days. CLINICAL DATA: This is the patient's initial encounter. Patient reports that signs and symptoms have been present for 4 - 6 days and indicates a pain score of 5/10. MEDICAL/SURGICAL HISTORY: Congestive heart failure. Carcinoma, colon. Chronic obstructive pul monary disease. None. RADIATION DOSE: 11.68 CTDI (mGy) COMPARISON: [facility] [place], CT ABDOMEN & PELVIS W/O CONTRAST, 08/24/2016. . TECHNIQUE: Multiple contiguous axial images were obtained through the abdomen. Images were obtained using multiple row detector helical technique. Using automated exposure control and adjustment of the mA and/or kV according to patient size, radiation dose was kept as low as reasonably achievable to o btain optimal diagnostic quality images. DICOM format image data is available electronically for rev iew and comparison. FINDINGS: Lower Lungs: The visualized lower lungs are clear. Liver: The liver has a homogeneous density without space-occupying lesion. Diffuse prominence of the common duct measuring 1.6 cm diameter at the matthew hepatis and 1.3 cm distally. This is very similar to the prior study of 08/24/2016. Spleen: Homogeneous density without enlargement. Pancreas: Unremarkable without mass or calcification. Kidneys: 3 mm calculus in the medial midpole of the right kidney unchanged from the prior study. No evidence of hydronephrosis. Kidneys otherwise within normal limits. Adrenal Glands: Unremarkable. Aorta: The aorta and proximal iliac vessels are grossly unremarkable without aneurysmal dilation. Bowel/Mesentery: Postsurgical findings at the junction of the small bowel and colon. No evidence of bowel dilatation. No free air or free fluid. Scattered colonic diverticula. No evidence of acute dive rticulitis. Abdominal Wall: Intact. Retroperitoneum: No evidence of adenopathy in the retrocrural, para-aortic, or deep pelvic regions. Bladder: Contours are smooth. Reproductive Organs: Prostate calcifications. Inguinal: The inguinal region is unremarkable without evidence of adenopathy. Bony Structures: Left total hip prosthesis. CONCLUSION: 1. Chronic dilatation of the common duct. 2. Postsurgical findings at the ileocolic junction. 3. 3 mm nonobstructing calculus in the right kidney unchanged. 4. No acute findings in the abdomen and pelvis. Electronically signed by: Malachi Gerard MD 03/27/2018 2:27 PM EST
[2018-03-27 15:02] LABS: Baso % (Auto) 0.3 % (0.0-2.0); Eos # (Auto) 0.2 th/mm3 (0.0-0.4); Eos % (Auto) 1.7 % (0.0-4.0); Hematocrit 35.8 % (39.0-51.0); Hemoglobin 12.2 gm/dL (13.0-17.0); Lymph # (Auto) 0.9 th/mm3 (1.0-4.8); Lymph % (Auto) 10.2 % (9.0-44.0); Mean Corpuscular HGB Conc 34.1 % (32.0-36.0); Mean Corpuscular Hemoglobin 31.8 pg (27.0-34.0); Mean Corpuscular Volume 93.4 fL (80.0-100.0); Mean Platelet Volume 6.9 fL (7.0-11.0); Mono # (Auto) 0.5 th/mm3 (0.0-0.9); Mono % (Auto) 5.5 % (0.0-8.0); Neut # (Auto) 7.3 th/mm3 (1.8-7.7); Neut % (Auto) 82.3 % (16.0-70.0); Platelet Count 219 th/mm3 (150-450); Red Blood Count 3.84 mil/mm3 (4.50-5.90); Red Cell Distribution Width 13.5 % (11.6-17.2); White Blood Count 8.8 th/mm3 (4.0-11.0)
[2018-03-27 16:06] LABS: Alanine Aminotransferase 24 U/L (12-78); Albumin 4.1 g/dL (3.4-5.0); Alkaline Phosphatase 75 U/L (45-117); Anion Gap 4 meq/L (5-15); Aspartate Aminotransferase 10 U/L (15-37); Blood Urea Nitrogen 47 mg/dL (7-18); Calcium 9.3 mg/dL (8.5-10.1); Carbon Dioxide 18.6 meq/L (21.0-32.0); Chloride 116 meq/L (98-107); Glomerular Filtration Rate 29 mL/min (>89); Glucose,Random 103 mg/dL (74-106); Lipase 632 U/L (73-393); Magnesium 2.1 mg/dL (1.5-2.5); Sodium 139 meq/L (136-145); Total Protein 8.1 g/dL (6.4-8.2)
[2018-03-27] MEDS ORDERED: Dextrose 50% in Water 50 ML Vial IV.PUSH PRN (18:12)
--- NOTE | 2018-03-27 18:39 | P.HPIM ---
History of Present Illness Primary Care Physician: UNKNOWN History of Present Illness: Pt is 62 yo with hx colon ca s/p partial colectomy in 2000. Pt was admitted last yr to this hospital with similar presentation with cdiff colitis, hyperkalemia. Pt says he was ok until about 6-9months ago and he has developed chronic diarrhea and some abd discomfort. He follows with GI office and says has had negative c diff repeat testing. He had C scope in December showing some diverticulosis. EGD in February showed esophageal stricture and required dilation. Pt had persistent diarrhea. He presented here after worsening of abdomen cramps and spasms. His diarrhea was green in color. He arrived to ED dehydrated with hyperkalemia and erik. Admitted for further evaluation. PMH colon ca. s/p partial colectomy and ileocolonic anastamosis 2000 chronic diarrhea ckd 3 egd 02/27. stricture s/p dilation esophagus c scope December 2017. diverticulosis c diff colitis last year htn hx dm chronic back pain. reported elzbieta/copd back surgery. diskectomy barretts esophagus int/ext hemorrhoids SH: currently no etoh/tob FH; NC Diagnosis (1) Diarrhea: (2) Acute hyperkalemia: (3) Acute worsening of stage 3 chronic kidney disease: Inpatient Certification Inpatient Certification: I certify that the inpatient services were ordered in accordance with Medicare regulations governing the order. This includes certification that hospital inpatient services are reasonable and necessary and in the case of services not specified as inpatient-only under 42 CFR 419.22(n), that they are appropriately provided as inpatient services in accordance to with the 2-midnight benchmark under 43 CFR 412.3(e) Estimated Total Length of Stay (Days): 3 Plans for Post Hospital Care: Not yet determined Medications and Allergies Allergies Allergy/AdvReac Type Severity Reaction Status Date / Time morphine Allergy Severe Itching Verified 03/28/18 16:24 chlorhexidine Allergy Unknown rash/itchin Verified 03/27/18 10:00 g diatrizoate meglumine AdvReac Mild Vomiting Verified 03/28/18 16:24 gadobenic acid AdvReac Mild Vomiting Verified 03/28/18 16:24 gadodiamide AdvReac Mild Vomiting Verified 03/28/18 16:24 gadoteridol AdvReac Mild Vomiting Verified 03/28/18 16:24 Iodinated Contrast- Oral and AdvReac Mild Nausea/Vomi Verified 03/28/18 16:24 IV Dye ting iodixanol AdvReac Mild Vomiting Verified 03/28/18 16:24 iohexol AdvReac Mild Vomiting Verified 03/28/18 16:24 Home Medications Medication Instructions Recorded Confirmed Type albuterol sulfate [Ventolin HFA] 2 puff INHALATION Q4-6H PRN 03/27/18 03/27/18 History ascorbic acid (vitamin C) [Vitamin 500 mg PO DAILY 03/27/18 03/27/18 History C] atorvastatin 40 mg PO DAILY 03/27/18 03/27/18 History diltiazem HCl 30 mg PO DAILY 03/27/18 03/27/18 History ferrous sulfate [iron] 325 mg PO DAILY 03/27/18 03/27/18 History furosemide [Lasix] 20 mg PO DAILY 03/27/18 03/27/18 History metformin 500 mg PO DAILY 03/27/18 03/27/18 History multivitamin 1 tab PO DAILY 03/27/18 03/27/18 History pantoprazole 40 mg PO DAILY 03/27/18 03/27/18 History ranitidine HCl [Zantac] 150 mg PO HS 03/27/18 03/27/18 History cholestyramine (with sugar) 4 g PO BID 03/30/18 03/30/18 History [Questran] Active Medications: Active Medications Acetaminophen (Tylenol) 650 mg PO Q4H PRN PRN Reason: Temp > 100.4 Atorvastatin Calcium (Lipitor) 40 mg PO DAILY [facility] Dextrose (D50w Vial) 50 ml IV.PUSH UNSCH PRN PRN Reason: PER HYPOGLYCEMIA PROTOCOL Diltiazem HCl (Cardizem) 30 mg PO DAILY [facility] Glucagon (Glucagon Inj) 1 mg OTHER PRN PRN PRN Reason: for Hypoglycemia Protocol Pantoprazole Sodium 80 mg/ (Sodium Chloride) 100 mls @ 10 mls/hr IV.CONT CONT GONZALO Sodium Chloride (Ns Inj) 1,000 mls @ 100 mls/hr IV.CONT .Q10H GONZALO Insulin Aspart (Novolog Insulin Correctional Sugar Inj) 0 unit SQ ACHS GONZALO; Protocol Lisinopril (Prinivil) 10 mg PO DAILY [facility] Ondansetron HCl (Zofran Inj) 4 mg IV.PUSH Q6H PRN PRN Reason: NAUSEA OR VOMITING Sodium Chloride (Ns Flush) 2 ml IV.FLUSH PRN PRN PRN Reason: FLUSH AFTER USING IV ACCESS Last Admin: 03/27/18 16:51 Dose: 2 ml Physical Exam Vital signs: Last Vital Signs Temp 98.0 F 03/27/18 09:58 Pulse 77 03/27/18 14:15 Resp 15 03/27/18 14:15 BP 121/72 03/27/18 09:58 Pulse Ox 100 03/27/18 14:15 Narrative: heart reg lung cta abd s/nabs/mild distention ext no edema Results Labs CBC & Chem 7: 03/28/18 04:37 03/30/18 07:10 Caprini VTE Risk Assessment Caprini VTE Risk Assessment: Moderate/High Risk (score >= 2) Caprini Risk Assessment Model: Point Value = 1 Point Value = 2 Point Value = 3 Point Value = 5 Age 41-60 Minor surgery BMI > 25 kg/m2 Swollen legs Varicose veins or History of unexplained or recurrent spontaneous Oral contraceptives or hormone replacement Sepsis (< 1 month) Serious lung disease, including pneumonia (< 1 month) Abnormal pulmonary function Acute myocardial infarction Congestive heart failure (< 1 month) History of inflammatory bowel disease Medical patient at bed rest Age 61-74 Arthroscopic surgery Major open surgery (> 45 min) Laparoscopic surgery (> 45 min) Malignancy Confined to bed (> 72 hours) Immobilizing plaster cast Central venous access Age >= 75 History of VTE Family history of VTE Factor V Leiden Prothrombin [id number] Lupus anticoagulant Anticardiolipin antibodies Elevated serum homocysteine Heparin-induced thrombocytopenia Other congenital or acquired thrombophilia Stroke (< 1 month) Elective arthroplasty Hip, pelvis, or leg fracture Acute spinal cord injury (< 1 month) Prophylaxis Regimen: Total Risk Factor Score Risk Level Prophylaxis Regimen 0-1 Low Early ambulation 2 Moderate Order ONE of the following: *Sequential Compression Device (SCD) *Heparin 5000 units SQ BID 3-4 Higher Order ONE of the following medications: *Heparin 5000 units SQ TID *Enoxaparin/Lovenox 40 mg SQ daily (WT < 150 kg, CrCl > 30 mL/min) *Enoxaparin/Lovenox 30 mg SQ daily (WT < 150 kg, CrCl > 10-29 mL/min) *Enoxaparin/Lovenox 30 mg SQ BID (WT < 150 kg, CrCl > 30 mL/min) AND/OR *Sequential Compression Device (SCD) 5 or more Highest Order ONE of the following medications: *Heparin 5000 units SQ TID (Preferred with Epidurals) *Enoxaparin/Lovenox 40 mg SQ daily (WT < 150 kg, CrCl > 30 mL/min) *Enoxaparin/Lovenox 30 mg SQ daily (WT < 150 kg, CrCl > 10-29 mL/min) *Enoxaparin/Lovenox 30 mg SQ BID (WT < 150 kg, CrCl > 30 mL/min) AND *Sequential Compression Device (SCD) Assessment and Plan Assessment (1) Diarrhea: Code(s): R19.7 - Diarrhea, unspecified Status: Acute (2) Acute hyperkalemia: Code(s): E87.5 - Hyperkalemia Status: Acute (3) Acute worsening of stage 3 chronic kidney disease: Code(s): N18.3 - Chronic kidney disease, stage 3 (moderate) Status: Acute Plan: Hx colon ca s/p ileocolonic anastomosis. Hx c diff 2016. presents with worsening of his chronic diarrhea/abdomen pain ..unclear etiology. exclude infectious etiology. exclude pancreatic insufficiency. consider metabolic cause hyperkalemia. likely from diarrhea, richard nonanion gap metabolic acidosis. 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 kayexalate. recheck k. hold richard. hold lasix try bentyl for spasms pain. _ (1) Diarrhea Qualifiers: Diarrhea type: presumed infectious Qualified Code(s): R19.7 - Diarrhea, unspecified
[2018-03-27] MEDS ORDERED: Sodium Polystyrene Sulfonate/Sorbitol Liq 15 GM/60 ML UDC PO ONE (20:00)
[2018-03-27] MEDS: Acetaminophen 325 MG Tablet PO PRN (20:34)
[2018-03-27] MEDS: Sod Chloride 0.9% Inj 1,000 ML IV.CONT SCH (20:38)
[2018-03-27] MEDS: Insulin NovoLOG Aspart Correctional Sugar Inj SQ SCH (21:00)
[2018-03-28] MEDS: Sod Chloride 0.9% Inj 1,000 ML IV.CONT SCH ×3 (05:00→16:25)
[2018-03-28 05:50] LABS: Baso % (Auto) 0.7 % (0.0-2.0); Eos # (Auto) 0.2 th/mm3 (0.0-0.4); Eos % (Auto) 4.1 % (0.0-4.0); Hematocrit 32.6 % (39.0-51.0); Lymph % (Auto) 24.7 % (9.0-44.0); Mean Corpuscular HGB Conc 33.6 % (32.0-36.0); Mean Corpuscular Hemoglobin 31.3 pg (27.0-34.0); Mean Platelet Volume 7.3 fL (7.0-11.0); Mono # (Auto) 0.3 th/mm3 (0.0-0.9); Mono % (Auto) 6.5 % (0.0-8.0); Neut # (Auto) 2.7 th/mm3 (1.8-7.7); Platelet Count 179 th/mm3 (150-450); Red Blood Count 3.51 mil/mm3 (4.50-5.90); Red Cell Distribution Width 13.5 % (11.6-17.2); White Blood Count 4.2 th/mm3 (4.0-11.0)
[2018-03-28] MEDS: Acetaminophen 325 MG Tablet PO PRN (06:06)
[2018-03-28 06:25] LABS: Alanine Aminotransferase 19 U/L (12-78); Albumin 3.3 g/dL (3.4-5.0); Alkaline Phosphatase 64 U/L (45-117); Anion Gap 7 meq/L (5-15); Aspartate Aminotransferase 12 U/L (15-37); Blood Urea Nitrogen 41 mg/dL (7-18); Calcium 8.4 mg/dL (8.5-10.1); Carbon Dioxide 14.6 meq/L (21.0-32.0); Chloride 123 meq/L (98-107); Glomerular Filtration Rate 31 mL/min (>89); Glucose,Random 99 mg/dL (74-106); Potassium 5.7 meq/L (3.5-5.1); Sodium 145 meq/L (136-145); Total Protein 6.7 g/dL (6.4-8.2)
[2018-03-28] MEDS: Insulin NovoLOG Aspart Correctional Sugar Inj SQ SCH ×4 (08:49→21:00)
[2018-03-28] MEDS: dilTIAZem 30 MG Tablet PO SCH (10:34)
[2018-03-28] MEDS: Lisinopril 10 MG Tablet PO SCH (10:36)
[2018-03-28] MEDS: Dicyclomine 10 MG Capsule PO PRN ×3 (10:37→21:40)
--- NOTE | 2018-03-28 13:30 | P.CONGI ---
History of Present Illness Consult date: 03/28/18 Consult reason: Persistent diarrhea Chief complaint: Hyperkalemia, CAIO, UTI diarrhea, GI bleed History of Present Illness: This patient is a 62-year-old male with past medical history significant for colon cancer status post resection in 2001. Patient also endorses history of COPD, CHF, diabetes, hypertension, and skin cancers. Patient presented to the emergency room at [facility] with complaint of abdominal pain nausea and diarrhea. Upon consultation, patient states that he has had loose watery green stool for greater than 1 year with lower abdominal sharp pains and cramping. He endorses that he has been hospitalized and treated for C. difficile infection 8 months ago. Patient states his lower abdominal pain is intermittent and he describes it as sharp and radiates throughout lower abdomen. Patient rates pain at 4 out of 10 at this time and states there are no known alleviating or aggravating factors. Last EGD and colonoscopy performed in December 2017 per patient findings of diverticulosis. February 2018 patient states he underwent EGD with dilatation due to a history of esophageal strictures. Patient denies any noted rectal bleeding. States family history positive for mother who had diverticulitis. Patient denies use of tobacco or alcohol products. Patient denies fever or chills but does endorse occasional nausea and headaches. CT on admission showed chronic dilatation of the common duct, no acute findings. <Fanny Galindo - Last Filed: 03/28/18 13:17> Review of Systems All other systems reviewed negative except as stated in HPI <Fanny Galindo - Last Filed: 03/28/18 13:17> PMFSH - History History Provided By: Patient - Medical History Medical History: Medical History (Last Reviewed 03/27/18 @ 13:38 by Wood Paniagua DO) CHF (congestive heart failure) COPD (chronic obstructive pulmonary disease) Colon cancer - Tobacco History Second Hand Smoke Exposure: No Tobacco Use In Past 30 Days: No Smoking Status: Former smoker Tobacco Type: Cigarettes - Alcohol History How Often Do You Have a Drink Containing Alcohol: Never - Substance Use History Substance History: Past History - Travel History Recent Travel in the [place] Within the Last 8 Weeks: No Recent Travel Out of the Country Within the Last 8 Weeks: No - Immunization History Tetanus Immunization: <5 Years Hx Influenza Vaccine This Season: Yes <Fanny Galindo - Last Filed: 03/28/18 13:17> - Medical History Medical History: Medical History (Last Reviewed 03/27/18 @ 13:38 by Wood Paniagua DO) CHF (congestive heart failure) COPD (chronic obstructive pulmonary disease) Colon cancer <DonisjesusYvesjonah - Last Filed: 03/28/18 19:07> Medications and Allergies Active Medications: Active Medications Acetaminophen (Tylenol) 650 mg PO Q4H PRN PRN Reason: Temp > 100.4 Last Admin: 03/28/18 06:06 Dose: 650 mg Atorvastatin Calcium (Lipitor) 40 mg PO DAILY [facility] Last Admin: 03/28/18 10:36 Dose: 40 mg Dextrose (D50w Vial) 50 ml IV.PUSH UNSCH PRN PRN Reason: PER HYPOGLYCEMIA PROTOCOL Dicyclomine HCl (Bentyl) 10 mg PO QID PRN PRN Reason: ABDOMINAL CRAMPING Last Admin: 03/28/18 10:37 Dose: 10 mg Diltiazem HCl (Cardizem) 30 mg PO DAILY [facility] Last Admin: 03/28/18 10:34 Dose: Not Given Glucagon (Glucagon Inj) 1 mg OTHER PRN PRN PRN Reason: for Hypoglycemia Protocol Sodium Chloride (Ns Inj) 1,000 mls @ 100 mls/hr IV.CONT .Q10H [facility] Last Admin: 03/28/18 06:14 Dose: 100 mls/hr Insulin Aspart (Novolog Insulin Correctional Sugar Inj) 0 unit SQ ACHS [facility]; Protocol Last Admin: 03/28/18 13:00 Dose: Not Given Lisinopril (Prinivil) 10 mg PO DAILY [facility] Last Admin: 03/28/18 10:36 Dose: 10 mg Ondansetron HCl (Zofran Inj) 4 mg IV.PUSH Q6H PRN PRN Reason: NAUSEA OR VOMITING Last Admin: 03/28/18 12:20 Dose: 4 mg Pantoprazole Sodium (Protonix) 40 mg PO BID [facility] Sodium Chloride (Ns Flush) 2 ml IV.FLUSH PRN PRN PRN Reason: FLUSH AFTER USING IV ACCESS Last Admin: 03/27/18 16:51 Dose: 2 ml Tramadol HCl (Ultram) 50 mg PO Q4HR PRN PRN Reason: pain 3-10 <Fanny Galindo - Last Filed: 03/28/18 13:17> Active Medications: Active Medications Acetaminophen (Tylenol) 650 mg PO Q4H PRN PRN Reason: Temp > 100.4 Last Admin: 03/28/18 06:06 Dose: 650 mg Atorvastatin Calcium (Lipitor) 40 mg PO DAILY [facility] Last Admin: 03/28/18 10:36 Dose: 40 mg Dextrose (D50w Vial) 50 ml IV.PUSH UNSCH PRN PRN Reason: PER HYPOGLYCEMIA PROTOCOL Dicyclomine HCl (Bentyl) 10 mg PO QID PRN PRN Reason: ABDOMINAL CRAMPING Last Admin: 03/28/18 18:23 Dose: 10 mg Diltiazem HCl (Cardizem) 30 mg PO DAILY [facility] Last Admin: 03/28/18 10:34 Dose: Not Given Glucagon (Glucagon Inj) 1 mg OTHER PRN PRN PRN Reason: for Hypoglycemia Protocol Sodium Chloride (Ns Inj) 1,000 mls @ 100 mls/hr IV.CONT .Q10H [facility] Last Admin: 03/28/18 16:25 Dose: 100 mls/hr Insulin Aspart (Novolog Insulin Correctional Sugar Inj) 0 unit SQ ACHS [facility]; Protocol Last Admin: 03/28/18 18:42 Dose: Not Given Lisinopril (Prinivil) 10 mg PO DAILY [facility] Last Admin: 03/28/18 10:36 Dose: 10 mg Ondansetron HCl (Zofran Inj) 4 mg IV.PUSH Q6H PRN PRN Reason: NAUSEA OR VOMITING Last Admin: 03/28/18 18:23 Dose: 4 mg Pantoprazole Sodium (Protonix) 40 mg PO BID [facility] Sodium Chloride (Ns Flush) 2 ml IV.FLUSH PRN PRN PRN Reason: FLUSH AFTER USING IV ACCESS Last Admin: 03/27/18 16:51 Dose: 2 ml Tramadol HCl (Ultram) 50 mg PO Q4HR PRN PRN Reason: pain 3-10 <Hemaidan,Ammar - Last Filed: 03/28/18 19:07> Allergies Allergy/AdvReac Type Severity Reaction Status Date / Time morphine Allergy Severe Itching Verified 03/28/18 16:24 chlorhexidine Allergy Unknown rash/itchin Verified 03/27/18 10:00 g diatrizoate meglumine AdvReac Mild Vomiting Verified 03/28/18 16:24 gadobenic acid AdvReac Mild Vomiting Verified 03/28/18 16:24 gadodiamide AdvReac Mild Vomiting Verified 03/28/18 16:24 gadoteridol AdvReac Mild Vomiting Verified 03/28/18 16:24 Iodinated Contrast- Oral and AdvReac Mild Nausea/Vomi Verified 03/28/18 16:24 IV Dye ting iodixanol AdvReac Mild Vomiting Verified 03/28/18 16:24 iohexol AdvReac Mild Vomiting Verified 03/28/18 16:24 Home Medications Medication Instructions Recorded Confirmed Type albuterol sulfate [Ventolin HFA] 2 puff INHALATION Q4-6H PRN 03/27/18 03/27/18 History ascorbic acid (vitamin C) [Vitamin 500 mg PO DAILY 03/27/18 03/27/18 History C] atorvastatin 40 mg PO DAILY 03/27/18 03/27/18 History diltiazem HCl 30 mg PO DAILY 03/27/18 03/27/18 History ferrous sulfate [iron] 325 mg PO DAILY 03/27/18 03/27/18 History furosemide [Lasix] 20 mg PO DAILY 03/27/18 03/27/18 History lisinopril 10 mg PO DAILY 03/27/18 03/27/18 History metformin 500 mg PO DAILY 03/27/18 03/27/18 History multivitamin 1 tab PO DAILY 03/27/18 03/27/18 History omeprazole 20 mg PO BID 03/27/18 03/27/18 History pantoprazole 40 mg PO DAILY 03/27/18 03/27/18 History ranitidine HCl [Zantac] 150 mg PO HS 03/27/18 03/27/18 History Exam Vital signs: Vital Signs 03/27/18 14:15 03/27/18 20:00 03/28/18 00:00 Temperature 97.9 F 97.4 F L Pulse Rate 77 79 Respiratory Rate 15 16 16 Blood Pressure 117/60 96/54 L Pulse Oximetry 100 100 99 03/28/18 04:00 03/28/18 08:00 03/28/18 12:00 Temperature 97.9 F 97.5 F L 97.6 F Pulse Rate 76 81 79 Respiratory Rate 16 20 20 Blood Pressure 97/51 L 106/59 L 125/60 Pulse Oximetry 98 98 99 Intake & Output 03/27/18 03/28/18 03/28/18 18:59 06:59 18:59 Intake Total 1100 / 1100 1000 / 1000 480 / 480 Balance 1100 / 1100 1000 / 1000 480 / 480 Weight 58.06 kg 61.6 kg Intake: IV 1100 / 1100 1000 / 1000 NS Inj 1,000 ML @ 100 mls/hr IV 1000 / 1000 .CONT .Q10H [facility] Rx#:[id number] Maxipime Inj 1,000 MG In NS Inj 100 / 100 100 ML @ 200 mls/hr IV.SIG ONCE ONE Rx#:[id number] NS Inj 1,000 ML @ Wide Open IV. 1000 / 1000 SIG BOLUS ONE Rx#:[id number] Oral 480 / 480 Other: # Voids 2 4 Date of Last Bowel Movement 03/28/18 03/28/18 # Bowel Movements 2 4 - Constitutional no acute distress - Routine HEENT Exam Head: Present: normocephalic - Routine Respiratory Exam Present: CTA bilaterally. Absent: accessory muscle use - Routine Cardiovascular Exam Present: S1, S2 - Routine Abdominal Exam Present: soft, normoactive bowel sounds. Absent: tenderness, distended, guarding, firm, rigid - Routine Skin Exam Present: dry, warm - Routine Neurological Exam Present: alert, oriented X3 <Galindo,Fanny - Last Filed: 03/28/18 13:17> Vital signs: Vital Signs 03/27/18 20:00 03/28/18 00:00 03/28/18 04:00 Temperature 97.9 F 97.4 F L 97.9 F Pulse Rate 79 76 Respiratory Rate 16 16 16 Blood Pressure 117/60 96/54 L 97/51 L Pulse Oximetry 100 99 98 03/28/18 08:00 03/28/18 12:00 03/28/18 16:00 Temperature 97.5 F L 97.6 F 97.7 F Pulse Rate 81 79 66 Respiratory Rate 20 20 20 Blood Pressure 106/59 L 125/60 98/57 L Pulse Oximetry 98 99 97 Intake & Output 03/28/18 03/28/18 03/29/18 06:59 18:59 06:59 Intake Total 1000 / 1000 1480 / 1480 Balance 1000 / 1000 1480 / 1480 Weight 61.6 kg Intake: IV 1000 / 1000 1000 / 1000 NS Inj 1,000 ML @ 100 mls/hr IV 1000 / 1000 1000 / 1000 .CONT .Q10H [facility] Rx#:[id number] Oral 480 / 480 Other: # Voids 2 4 Date of Last Bowel Movement 03/28/18 03/28/18 # Bowel Movements 2 4 <Deirdre Frey - Last Filed: 03/28/18 19:07> Results - Labs CBC & Chem 7: 03/28/18 04:37 03/28/18 04:37 Labs: Laboratory Results - last 24 hr 03/27/18 03/27/18 03/27/18 13:45 13:45 14:10 WBC 8.8 RBC 3.84 L Hgb 12.2 L Hct 35.8 L MCV 93.4 MCH 31.8 MCHC 34.1 RDW 13.5 Plt Count 219 MPV 6.9 L Neut % (Auto) 82.3 H Lymph % (Auto) 10.2 [place] % (Auto) 5.5 Eos % (Auto) 1.7 Baso % (Auto) 0.3 Neut # (Auto) 7.3 Lymph # (Auto) 0.9 L [place] # (Auto) 0.5 Eos # (Auto) 0.2 Baso # (Auto) 0.0 WBC Differential . Differential Comment Auto diff final Sodium Potassium Chloride Carbon Dioxide Anion Gap BUN Creatinine Estimated GFR POC Glucose Random Glucose Calcium Magnesium Total Bilirubin AST ALT Alkaline Phosphatase Troponin I Total Protein Albumin Lipase Urine Color Yellow Urine Clarity Hazy H Urine pH 5.0 Ur Specific [place] 1.011 Urine Protein Negative Urine Glucose (UA) Negative Urine Ketones Negative Urine Occult Blood Large H Urine Nitrate Negative Urine Bilirubin Negative Urine Urobilinogen Less than 2 Ur Leukocyte Esterase Trace H Urine RBC 12 H Urine WBC 2 Ur Squamous Epith Cells 2 Urine Bacteria Occasional H Hyaline Casts 5 Urine Mucus Few H Micro UA Comment Culture not ind Ur Microscopic Review Not Reportable Urine Culture Comments Culture not ind Stl C.difficile DNA Amp Negative St C. diff Tox Epid 027 Negative 03/27/18 03/27/18 03/27/18 14:10 20:33 20:45 WBC RBC Hgb Hct MCV MCH MCHC RDW Plt Count MPV Neut % (Auto) Lymph % (Auto) [place] % (Auto) Eos % (Auto) Baso % (Auto) Neut # (Auto) Lymph # (Auto) [place] # (Auto) Eos # (Auto) Baso # (Auto) WBC Differential Differential Comment Sodium 139 Potassium 7.0 H* 6.2 H D Chloride 116 H Carbon Dioxide 18.6 L Anion Gap 4 L BUN 47 H Creatinine 2.30 H Estimated GFR 29 L POC Glucose 86 Random Glucose 103 Calcium 9.3 Magnesium 2.1 Total Bilirubin 0.3 AST 10 L ALT 24 Alkaline Phosphatase 75 Troponin I Less than 0.02 L Total Protein 8.1 Albumin 4.1 Lipase 632 H Urine Color Urine Clarity Urine pH Ur Specific [place] Urine Protein Urine Glucose (UA) Urine Ketones Urine Occult Blood Urine Nitrate Urine Bilirubin Urine Urobilinogen Ur Leukocyte Esterase Urine RBC Urine WBC Ur Squamous Epith Cells Urine Bacteria Hyaline Casts Urine Mucus Micro UA Comment Ur Microscopic Review Urine Culture Comments Stl C.difficile DNA Amp St C. diff Tox Epid 027 03/28/18 03/28/18 03/28/18 01:03 04:28 04:37 WBC 4.2 D RBC 3.51 L Hgb 11.0 L Hct 32.6 L MCV 93.0 MCH 31.3 MCHC 33.6 RDW 13.5 Plt Count 179 MPV 7.3 Neut % (Auto) 64.0 Lymph % (Auto) 24.7 [place] % (Auto) 6.5 Eos % (Auto) 4.1 H Baso % (Auto) 0.7 Neut # (Auto) 2.7 Lymph # (Auto) 1.0 [place] # (Auto) 0.3 Eos # (Auto) 0.2 Baso # (Auto) 0.0 WBC Differential . Differential Comment Auto diff final Sodium Potassium Chloride Carbon Dioxide Anion Gap BUN Creatinine Estimated GFR POC Glucose 94 106 Random Glucose Calcium Magnesium Total Bilirubin AST ALT Alkaline Phosphatase Troponin I Total Protein Albumin Lipase Urine Color Urine Clarity Urine pH Ur Specific [place] Urine Protein Urine Glucose (UA) Urine Ketones Urine Occult Blood Urine Nitrate Urine Bilirubin Urine Urobilinogen Ur Leukocyte Esterase Urine RBC Urine WBC Ur Squamous Epith Cells Urine Bacteria Hyaline Casts Urine Mucus Micro UA Comment Ur Microscopic Review Urine Culture Comments Stl C.difficile DNA Amp St C. diff Tox Epid 027 03/28/18 03/28/18 03/28/18 04:37 04:37 07:46 WBC RBC Hgb Hct MCV MCH MCHC RDW Plt Count MPV Neut % (Auto) Lymph % (Auto) [place] % (Auto) Eos % (Auto) Baso % (Auto) Neut # (Auto) Lymph # (Auto) [place] # (Auto) Eos # (Auto) Baso # (Auto) WBC Differential Differential Comment Sodium 145 Potassium 5.7 H Chloride 123 H Carbon Dioxide 14.6 L Anion Gap 7 BUN 41 H Creatinine 2.16 H Estimated GFR 31 L POC Glucose 106 Random Glucose 99 Calcium 8.4 L D Magnesium Total Bilirubin 0.2 AST 12 L ALT 19 Alkaline Phosphatase 64 Troponin I Total Protein 6.7 D Albumin 3.3 L D Lipase 336 Urine Color Urine Clarity Urine pH Ur Specific [place] Urine Protein Urine Glucose (UA) Urine Ketones Urine Occult Blood Urine Nitrate Urine Bilirubin Urine Urobilinogen Ur Leukocyte Esterase Urine RBC Urine WBC Ur Squamous Epith Cells Urine Bacteria Hyaline Casts Urine Mucus Micro UA Comment Ur Microscopic Review Urine Culture Comments Stl C.difficile DNA Amp St C. diff Tox Epid 027 03/28/18 12:24 WBC RBC Hgb Hct MCV MCH MCHC RDW Plt Count MPV Neut % (Auto) Lymph % (Auto) [place] % (Auto) Eos % (Auto) Baso % (Auto) Neut # (Auto) Lymph # (Auto) [place] # (Auto) Eos # (Auto) Baso # (Auto) WBC Differential Differential Comment Sodium Potassium Chloride Carbon Dioxide Anion Gap BUN Creatinine Estimated GFR POC Glucose 125 H Random Glucose Calcium Magnesium Total Bilirubin AST ALT Alkaline Phosphatase Troponin I Total Protein Albumin Lipase Urine Color Urine Clarity Urine pH Ur Specific [place] Urine Protein Urine Glucose (UA) Urine Ketones Urine Occult Blood Urine Nitrate Urine Bilirubin Urine Urobilinogen Ur Leukocyte Esterase Urine RBC Urine WBC Ur Squamous Epith Cells Urine Bacteria Hyaline Casts Urine Mucus Micro UA Comment Ur Microscopic Review Urine Culture Comments Stl C.difficile DNA Amp St C. diff Tox Epid 027 - Imaging Impressions Abdomen/Pelvis CT 03/27/18 13:27 CONCLUSION: 1. Chronic dilatation of the common duct. 2. Postsurgical findings at the ileocolic junction. 3. 3 mm nonobstructing calculus in the right kidney unchanged. 4. No acute findings in the abdomen and pelvis. <Fanny Galindo - Last Filed: 03/28/18 13:17> - Labs CBC & Chem 7: 03/28/18 04:37 03/28/18 04:37 Labs: Laboratory Results - last 24 hr 03/27/18 03/27/18 03/28/18 20:33 20:45 01:03 WBC RBC Hgb Hct MCV MCH MCHC RDW Plt Count MPV Neut % (Auto) Lymph % (Auto) [place] % (Auto) Eos % (Auto) Baso % (Auto) Neut # (Auto) Lymph # (Auto) [place] # (Auto) Eos # (Auto) Baso # (Auto) WBC Differential Differential Comment Sodium Potassium 6.2 H D Chloride Carbon Dioxide Anion Gap BUN Creatinine Estimated GFR POC Glucose 86 94 Random Glucose Calcium Total Bilirubin AST ALT Alkaline Phosphatase Total Protein Albumin Lipase 03/28/18 03/28/18 03/28/18 04:28 04:37 04:37 WBC 4.2 D RBC 3.51 L Hgb 11.0 L Hct 32.6 L MCV 93.0 MCH 31.3 MCHC 33.6 RDW 13.5 Plt Count 179 MPV 7.3 Neut % (Auto) 64.0 Lymph % (Auto) 24.7 [place] % (Auto) 6.5 Eos % (Auto) 4.1 H Baso % (Auto) 0.7 Neut # (Auto) 2.7 Lymph # (Auto) 1.0 [place] # (Auto) 0.3 Eos # (Auto) 0.2 Baso # (Auto) 0.0 WBC Differential . Differential Comment Auto diff final Sodium 145 Potassium 5.7 H Chloride 123 H Carbon Dioxide 14.6 L Anion Gap 7 BUN 41 H Creatinine 2.16 H Estimated GFR 31 L POC Glucose 106 Random Glucose 99 Calcium 8.4 L D Total Bilirubin 0.2 AST 12 L ALT 19 Alkaline Phosphatase 64 Total Protein 6.7 D Albumin 3.3 L D Lipase 03/28/18 03/28/18 03/28/18 04:37 07:46 12:24 WBC RBC Hgb Hct MCV MCH MCHC RDW Plt Count MPV Neut % (Auto) Lymph % (Auto) [place] % (Auto) Eos % (Auto) Baso % (Auto) Neut # (Auto) Lymph # (Auto) [place] # (Auto) Eos # (Auto) Baso # (Auto) WBC Differential Differential Comment Sodium Potassium Chloride Carbon Dioxide Anion Gap BUN Creatinine Estimated GFR POC Glucose 106 125 H Random Glucose Calcium Total Bilirubin AST ALT Alkaline Phosphatase Total Protein Albumin Lipase 336 03/28/18 16:39 WBC RBC Hgb Hct MCV MCH MCHC RDW Plt Count MPV Neut % (Auto) Lymph % (Auto) [place] % (Auto) Eos % (Auto) Baso % (Auto) Neut # (Auto) Lymph # (Auto) [place] # (Auto) Eos # (Auto) Baso # (Auto) WBC Differential Differential Comment Sodium Potassium Chloride Carbon Dioxide Anion Gap BUN Creatinine Estimated GFR POC Glucose 89 Random Glucose Calcium Total Bilirubin AST ALT Alkaline Phosphatase Total Protein Albumin Lipase <Deirdre Frey - Last Filed: 03/28/18 19:07> Assessment and Plan (1) Diarrhea Status: Acute Code(s): R19.7 - Diarrhea, unspecified - Plan This patient is a 62-year-old male with past medical history significant for colon cancer status post resection in 2001. Patient also endorses history of COPD, CHF, diabetes, hypertension, and skin cancers. Patient presented to the emergency room at [facility] with complaint of abdominal pain nausea and diarrhea. Upon consultation, patient states that he has had loose watery green stool for greater than 1 year with lower abdominal sharp pains and cramping. He endorses that he has been hospitalized and treated for C. difficile infection 8 months ago. Patient states his lower abdominal pain is intermittent and he describes it as sharp and radiates throughout lower abdomen. Patient rates pain at 4 out of 10 at this time and states there are no known alleviating or aggravating factors. Last EGD and colonoscopy performed in December 2017 per patient findings of diverticulosis. February 2018 patient states he underwent EGD with dilatation due to a history of esophageal strictures. Patient denies any noted rectal bleeding. States family history positive for mother who had diverticulitis. Patient denies use of tobacco or alcohol products. Patient denies fever or chills but does endorse occasional nausea and headaches. CT on admission showed chronic dilatation of the common duct, no acute findings Persistent diarrhea Patient presents with report of loose watery green colored stool for greater than a year. Reports history of C. difficile for which he which received treatment 8 months ago. Patient reporting lower abdominal cramping with nausea and vomiting. 03/27/2018 CT abdomen and pelvis revealed the following findings-- 1. Chronic dilatation of the common duct. 2. Postsurgical findings at the ileocolic junction. 3. 3 mm nonobstructing calculus in the right kidney unchanged. 4. No acute findings in the abdomen and pelvis. Hemoglobin 11.0 hematocrit 32.6 lipase 336 total bilirubin 0.2 AST 12 ALT 19 alk phos 64 May consider pancreatic insufficiency as cause for recurring diarrhea. Plan -Full liquid diet -IV hydration -Stool studies pending -Monitor output -PPI -Antiemetic as per attending -Demetris for abdominal cramping -Supportive care -Further recommendations to follow This patient has been seen by myself and Dr. Frey and this note is written on his behalf - Attending Attestation <Fanny Galindo - Last Filed: 03/28/18 13:17> (1) Diarrhea Status: Acute Code(s): R19.7 - Diarrhea, unspecified - Plan Patient was seen and examined, agree with above note, we will wait for stool studies, we might need to do quantitative fat in the stool if the stool studies negative, patient had upper endoscopy and colonoscopy recently <Deirdre Frey - Last Filed: 03/28/18 19:07> <Fanny Galindo - Last Filed: 03/28/18 13:17> (1) Diarrhea Qualifiers: Diarrhea type: presumed infectious Qualified Code(s): R19.7 - Diarrhea, unspecified <Deirdre Frey - Last Filed: 03/28/18 19:07> (1) Diarrhea Qualifiers: Diarrhea type: presumed infectious Qualified Code(s): R19.7 - Diarrhea, unspecified
--- NOTE | 2018-03-28 14:41 | ECG ---
Date Performed: 03/27/2018 Time Performed: 21:39:49 PTAGE: 62 years EKG: Sinus rhythm WITH FIRST DEGREE AV BLOCK LOW QRS VOLTAGE IN EXTREMITY LEADS ABNORMAL ECG Since the PREVIOUS TRACING , no significant change noted PREVIOUS TRACIN08/24/2016 13.45 DOCTOR: Petty Copeland Interpretating Date/Time 03/28/2018 14:31:11
--- NOTE | 2018-03-28 17:08 | P.PNIM ---
Subjective Interval history: still with abdomen pains. Physical Exam Vital signs: Last Vital Signs Temp 97.7 F 03/28/18 16:00 Pulse 66 03/28/18 16:00 Resp 20 03/28/18 16:00 BP 98/57 L 03/28/18 16:00 Pulse Ox 97 03/28/18 16:00 Narrative: heart reg lung cta abd s/nt ext no edema Results Labs CBC & Chem 7: 03/28/18 04:37 03/29/18 08:06 Assessment and Plan Assessment (1) Diarrhea: Code(s): R19.7 - Diarrhea, unspecified Status: Acute (2) Acute hyperkalemia: Code(s): E87.5 - Hyperkalemia Status: Acute (3) Acute worsening of stage 3 chronic kidney disease: Code(s): N18.3 - Chronic kidney disease, stage 3 (moderate) Status: Acute Plan Hx colon ca s/p ileocolonic anastomosis. Hx c diff 2016. presents with worsening of his chronic diarrhea/abdomen pain ..unclear etiology. exclude infectious etiology. exclude pancreatic insufficiency. consider metabolic cause hyperkalemia. likely from diarrhea, richard nonanion gap metabolic acidosis. diarrhea cont ivf stool enteric pathogens, parasites, ciff testing consultedhis insurance investigator ?check MRCP abdomen iv insulin given. kayexalate. recheck k. hold richard. hold lasix try bentyl for spasms pain. Progress Note: Quality VTE Deep Vein Thrombosis/Pulmonary Embolism Present on Admission: No _ (1) Diarrhea Qualifiers: Diarrhea type: presumed infectious Qualified Code(s): R19.7 - Diarrhea, unspecified
[2018-03-29] MEDS: Sod Chloride 0.9% Inj 1,000 ML IV.CONT SCH ×4 (00:30→22:06)
[2018-03-29 08:56] LABS: Calcium 7.8 mg/dL (8.5-10.1); Carbon Dioxide 18.8 meq/L (21.0-32.0); Potassium 5.7 meq/L (3.5-5.1)
[2018-03-29] MEDS: dilTIAZem 30 MG Tablet PO SCH (10:49)
[2018-03-29] MEDS: Lisinopril 10 MG Tablet PO SCH (10:49)
[2018-03-29] MEDS: Insulin NovoLOG Aspart Correctional Sugar Inj SQ SCH ×4 (10:49→22:04)
--- NOTE | 2018-03-29 11:41 | P.PNGI ---
Subjective Interval history: Patient resting in bed Denies abdominal pain or nausea States less frequent bowel movements states 2 soft bowel movements this a.m. Physical Exam Vital signs: Vital Signs 03/28/18 12:00 03/28/18 15:59 03/28/18 16:00 Temperature 97.6 F 97.7 F Pulse Rate 79 75 66 Respiratory Rate 20 20 Blood Pressure 125/60 98/57 L Pulse Oximetry 99 97 03/28/18 20:00 03/29/18 00:00 03/29/18 04:00 Temperature 97.9 F 97.7 F 97.3 F L Pulse Rate 83 75 70 Respiratory Rate 19 20 20 Blood Pressure 103/56 L 108/55 L 90/54 L Pulse Oximetry 98 99 99 03/29/18 08:00 Temperature 97.7 F Pulse Rate 70 Respiratory Rate 18 Blood Pressure 94/50 L Pulse Oximetry 98 Intake & Output 03/28/18 03/29/18 03/29/18 18:59 06:59 18:59 Intake Total 2480 / 2480 1000 / 1000 Output Total 900 / 900 Balance 2480 / 2480 100 / 100 Weight 64.4 kg Intake: IV 1000 / 1000 1000 / 1000 NS Inj 1,000 ML @ 100 mls/hr IV 1000 / 1000 1000 / 1000 .CONT .Q10H [facility] Rx#:[id number] Oral 1480 / 1480 Output: Urine 900 / 900 Other: # Voids 4 600 Date of Last Bowel Movement 03/28/18 # Bowel Movements 5 - Constitutional no acute distress - Routine HEENT Exam Head: Present: normocephalic - Routine Respiratory Exam Absent: accessory muscle use - Routine Abdominal Exam Present: soft, normoactive bowel sounds. Absent: tenderness, guarding, firm - Routine Skin Exam Present: dry, warm - Routine Neurological Exam Present: alert, oriented X3 Results - Labs CBC & Chem 7: 03/28/18 04:37 03/29/18 08:06 Laboratory Results - last 24 hr 03/28/18 03/28/18 03/28/18 04:37 12:24 16:39 Sodium Potassium Chloride Carbon Dioxide Anion Gap BUN Creatinine Estimated GFR POC Glucose 125 H 89 Random Glucose Calcium Lipase 336 03/28/18 03/29/18 03/29/18 21:39 08:03 08:06 Sodium 145 Potassium 5.7 H Chloride 118 H Carbon Dioxide 18.8 L Anion Gap 8 BUN 23 H Creatinine 1.76 H Estimated GFR 40 L POC Glucose 131 H 103 Random Glucose 106 Calcium 7.8 L Lipase Microbiology 03/27/18 16:45 Blood - Peripheral Aerobic Blood Culture - Preliminary No growth in 2 days 03/27/18 16:45 Blood - Peripheral Anaerobic Blood Culture - Preliminary No growth in 2 days 03/27/18 16:45 Blood - Peripheral Aerobic Blood Culture - Preliminary No growth in 2 days 03/27/18 16:45 Blood - Peripheral Anaerobic Blood Culture - Preliminary No growth in 2 days Assessment and Plan (1) Diarrhea Status: Acute Code(s): R19.7 - Diarrhea, unspecified - Plan This patient is a 62-year-old male with past medical history significant for colon cancer status post resection in 2001. Patient also endorses history of COPD, CHF, diabetes, hypertension, and skin cancers. Patient presented to the emergency room at [facility] with complaint of abdominal pain nausea and diarrhea. Upon consultation, patient states that he has had loose watery green stool for greater than 1 year with lower abdominal sharp pains and cramping. He endorses that he has been hospitalized and treated for C. difficile infection 8 months ago. Patient states his lower abdominal pain is intermittent and he describes it as sharp and radiates throughout lower abdomen. Patient rates pain at 4 out of 10 at this time and states there are no known alleviating or aggravating factors. Last EGD and colonoscopy performed in December 2017 per patient findings of diverticulosis. February 2018 patient states he underwent EGD with dilatation due to a history of esophageal strictures. Patient denies any noted rectal bleeding. States family history positive for mother who had diverticulitis. Patient denies use of tobacco or alcohol products. Patient denies fever or chills but does endorse occasional nausea and headaches. CT on admission showed chronic dilatation of the common duct, no acute findings Persistent diarrhea Patient presents with report of loose watery green colored stool for greater than a year. Reports history of C. difficile for which he which received treatment 8 months ago. Patient reporting lower abdominal cramping with nausea and vomiting. 03/27/2018 CT abdomen and pelvis revealed the following findings-- 1. Chronic dilatation of the common duct. 2. Postsurgical findings at the ileocolic junction. 3. 3 mm nonobstructing calculus in the right kidney unchanged. 4. No acute findings in the abdomen and pelvis. Hemoglobin 11.0 hematocrit 32.6 lipase 336 total bilirubin 0.2 AST 12 ALT 19 alk phos 64 May consider pancreatic insufficiency as cause for recurring diarrhea. 03/29/2018 Persistent diarrhea Patient reports less frequent bowel movements. States he had 2 soft, "like soft serve" BMs this morning. States stools are no longer green in color. Brown without any noted bleeding. No new labs today Stool studies pending, if negative may order quantitative fat in stool to evaluate for possible pancreatic insufficiency Plan -Soft diet -Continue IV hydration -Stool studies pending -Fecal elastase to check for pancreatic insufficiency -Questran -Continue PPI -Bentyl -Supportive care -Further recommendations to follow This patient has been seen by myself and Dr. Howell and this note is written on his behalf - Attending Attestation Dr. Howell (1) Diarrhea Qualifiers: Diarrhea type: presumed infectious Qualified Code(s): R19.7 - Diarrhea, unspecified
--- NOTE | 2018-03-29 17:33 | P.PNIM ---
Physical Exam Vital signs: Last Vital Signs Temp 97.8 F 03/29/18 16:00 Pulse 86 03/29/18 16:00 Resp 18 03/29/18 16:00 BP 99/50 L 03/29/18 16:00 Pulse Ox 98 03/29/18 16:00 Narrative: heart reg lung cta abd s/nt ext no edema Results Labs CBC & Chem 7: 03/28/18 04:37 03/29/18 08:06 Assessment and Plan Assessment (1) Diarrhea: Code(s): R19.7 - Diarrhea, unspecified Status: Acute (2) Acute hyperkalemia: Code(s): E87.5 - Hyperkalemia Status: Acute (3) Acute worsening of stage 3 chronic kidney disease: Code(s): N18.3 - Chronic kidney disease, stage 3 (moderate) Status: Acute Plan: Hx colon ca s/p ileocolonic anastomosis. Hx c diff 2017. presents with worsening of his chronic diarrhea/abdomen pain ..unclear etiology. exclude infectious etiology. exclude pancreatic insufficiency. consider metabolic cause hyperkalemia. likely from diarrhea, richard nonanion gap metabolic acidosis. diarrhea cont ivf stool enteric pathogens, parasites, ciff testing consult his cattle care worker ?check MRCP abdomen iv insulin given. kayexalate. recheck k. hold richard. hold lasix try bentyl for spasms pain. Plan Hx colon ca s/p ileocolonic anastomosis. Hx c diff 2017. presents with worsening of his chronic diarrhea/abdomen pain ..unclear etiology. exclude infectious etiology. exclude pancreatic insufficiency. consider metabolic cause hyperkalemia. likely from diarrhea, richard nonanion gap metabolic acidosis. diarrhea cont ivf stool enteric pathogens, parasites, ciff testing consultedhis cattle care worker ?check MRCP abdomen iv insulin given. kayexalate. recheck k. hold richard. hold lasix try bentyl for spasms pain. Progress Note: Quality VTE Deep Vein Thrombosis/Pulmonary Embolism Present on Admission: No _ (1) Diarrhea Qualifiers: Diarrhea type: presumed infectious Qualified Code(s): R19.7 - Diarrhea, unspecified
[2018-03-30 07:40] VITALS: BP 121/69; TEMP 97.4; O2SAT 98
[2018-03-30 09:27] LABS: Calcium 7.6 mg/dL (8.5-10.1); Carbon Dioxide 18.9 meq/L (21.0-32.0); Magnesium 1.6 mg/dL (1.5-2.5); Potassium 5.5 meq/L (3.5-5.1)
[2018-03-30 09:38] LABS: Thyroid Stimulating Hormone 2.9 uIU/mL (0.358-3.740)
[2018-03-30] MEDS: Insulin NovoLOG Aspart Correctional Sugar Inj SQ SCH ×2 (10:19→14:41)
--- NOTE | 2018-03-30 11:29 | P.DS ---
DS: Providers Date of admission: 03/27/18 17:56 Primary care physician: Dr. Watson Consults: 03/27/18 18:13 Consult to Gastroenterology Routine Consulting Provider: Deirdre Frey Reason for Consultation: persistent diarrhea Notified:: Service Spoke with:: ALPHONSO Date Notified:: 03/27/18 Time Notified:: 18:14 Ordering Provider: JHONNY Brief History from admission: Pt is 62 yo with hx colon ca s/p partial colectomy in 2000. Pt was admitted last yr to this hospital with similar presentation with cdiff colitis, hyperkalemia. Pt says he was ok until about 6-9months ago and he has developed chronic diarrhea and some abd discomfort. He follows with GI office and says has had negative c diff repeat testing. He had C scope in December showing some diverticulosis. EGD in February showed esophageal stricture and required dilation. Pt had persistent diarrhea. He presented here after worsening of abdomen cramps and spasms. His diarrhea was green in color. He arrived to ED dehydrated with hyperkalemia and erik. Admitted for further evaluation. PMH colon ca. s/p partial colectomy and ileocolonic anastamosis 2000 chronic diarrhea ckd 3 egd 02/27. stricture s/p dilation esophagus c scope December 2017. diverticulosis c diff colitis last year htn hx dm chronic back pain. reported elzbieta/copd back surgery. diskectomy barretts esophagus int/ext hemorrhoids SH: currently no etoh/tob FH; NC DS: Diagnosis Discharge Diagnosis (1) Diarrhea: Status: Acute (2) Acute hyperkalemia: Status: Acute (3) Acute worsening of stage 3 chronic kidney disease: Status: Acute DS: Summary Diarrhea/Abd pain Hx colon ca s/p ileocolonic anastomosis. Hx c diff 2016 - Pt presented with worsening of his chronic diarrhea/abdomen pain of unclear etiology, hyperkalemia ( likely from diarrhea, doug), and non-anion gap metabolic acidosis. He was started on IVF. Stool studies for enteric pathogens and C. diff testing were negative. Consult was placed to his marketing outreach coordinator. CT Abd/pelvis wo IV Contrast (03/27) noted chronic dilatation of the common duct, postsurgical findings at the ileocolic junction, 3 mm nonobstructing calculus in the right kidney unchanged, otherwise no acute findings in the abdomen and pelvis. Stool studies for parasites are still pending. Pt was started on a trial of Bentyl and resumed on his Qestran which was reportedly just started about 3-4 days prior to this admission. After starting these medications the abd pain and diarrhea did improve. GI requested stool studies to check fecal fat to investigate for possible pancreatic insufficiency but pt was no longer having diarrhea. We will continue the Bentyl PRN and the Questran upon discharge. He is to followup with his marketing outreach coordinator in 1 week. Hyperkalemia - Pts labs at admission noted K+ 7.0. Pt was given iv insulin and Kayexalate. His DOUG inhibitor and Lasix were held. Pts potassium started to improve down to 5.5 on the day of discharge. Continue to hold the DOUG at discharge. Can resume his Lasix upon discharge. Pt will need repeat labs and followup with his PCP in 1 week. HTN - Pt had some hypotension during this admission and his Diltiazem was held along with his DOUG and Lasix. As his BP began to improve his Diltiazem was resumed. he will resume his Lasix upon discharge as well. Should his BP continue to rise could consider changing his CCB to either Procardia or Norvasc as an outpt. Time spent discussing smoking cessation with patient: more than 10 minutes Status at Discharge Overall status at discharge: patient is progressing back to baseline Time Spent with Patient Total time spent providing and/or coordinating discharge services: Quality: VTE Deep Vein Thrombosis/Pulmonary Embolism Present on Admission: No Results Labs on day of discharge: Labs from last 24 hours 03/30/18 03/30/18 03/30/18 07:15 07:14 07:10 Sodium Potassium Chloride Carbon Dioxide Anion Gap BUN Creatinine Estimated GFR POC Glucose 115 H Random Glucose Calcium Magnesium Aldosterone Pending TSH Cortisol 16.0 03/30/18 03/29/18 03/29/18 07:10 20:48 16:38 Sodium 142 Potassium 5.5 H Chloride 116 H Carbon Dioxide 18.9 L Anion Gap 7 BUN 18 Creatinine 1.91 H Estimated GFR 36 L POC Glucose 125 H 75 Random Glucose 108 H Calcium 7.6 L Magnesium 1.6 Aldosterone TSH 2.900 Cortisol 03/29/18 12:24 Sodium Potassium Chloride Carbon Dioxide Anion Gap BUN Creatinine Estimated GFR POC Glucose 97 Random Glucose Calcium Magnesium Aldosterone TSH Cortisol Preliminary micro results at discharge 03/27/18 16:45 Aerobic Blood Culture - Preliminary Blood - Peripheral No growth in 3 days Anaerobic Blood Culture - Preliminary No growth in 3 days 03/27/18 16:45 Aerobic Blood Culture - Preliminary Blood - Peripheral No growth in 3 days Anaerobic Blood Culture - Preliminary No growth in 3 days Impressions ITS Impressions Abdomen/Pelvis CT 03/27/18 13:27 CONCLUSION: 1. Chronic dilatation of the common duct. 2. Postsurgical findings at the ileocolic junction. 3. 3 mm nonobstructing calculus in the right kidney unchanged. 4. No acute findings in the abdomen and pelvis. Discharge Plan Discharge Disposition Patient Disposition: Discharge Home Discharge Condition Condition: Good Discharge Order Discharge Orders: Discharge Order (Routine); Ordered 03/30/18 Ordered By: Rosario Davis Discharge Details Anticipated Discharge Date: 03/30/18 Discharge Comment: Followup with Dr. Delgado in 1 week, call for that appt Followup with your PCP, Dr. Watson, in 1 week, call for that appt. Physicians Team ED Provider: Wood Paniagua Primary Care Provider: MARIAM, Attending Provider: Triston Mcgregor Other Providers: Deirdre Frey Rxs /Orders / Referrals /Forms Prescriptions: New dicyclomine 10 mg Capsule 10 mg PO QID PRN (Reason: Abdominal Cramping) Qty: 30 RF: 0 Continue multivitamin Tablet 1 tab PO DAILY RF: 0 atorvastatin 40 mg Tablet 40 mg PO DAILY RF: 0 metformin 500 mg Tablet 500 mg PO DAILY RF: 0 ascorbic acid (vitamin C) [Vitamin C] 500 mg Tablet 500 mg PO DAILY RF: 0 pantoprazole 40 mg Tablet,Delayed Release (Dr/Ec) 40 mg PO DAILY RF: 0 ferrous sulfate [iron] 325 mg (65 mg iron) Tablet 325 mg PO DAILY RF: 0 ranitidine HCl [Zantac] 150 mg Tablet 150 mg PO HS RF: 0 furosemide [Lasix] 20 mg Tablet 20 mg PO DAILY RF: 0 albuterol sulfate [Ventolin HFA] 90 mcg/actuation Hfa Aerosol Inhaler 2 puff INHALATION Q4-6H PRN (Reason: Shortness Of Breath) RF: 0 diltiazem HCl 30 mg Tablet 30 mg PO DAILY RF: 0 cholestyramine (with sugar) [Questran] 4 gram Powder In Packet 4 g PO BID RF: 0 Discontinued lisinopril 10 mg Tablet 10 mg PO DAILY RF: 0 Referrals: Deirdre Frey MD [Physician] - See Instructions (Followup with Gastroenterology in 1 week, call for that appt. ) Roderick Watson MD [FAMILY MEDICINE] - See Instructions (followup with your PCP in 1 week, call for that appt. ) UNKNOWN, [Primary Care Provider] - See Instructions Stand Alone Forms: Work Release/Restrictions Discharge Instructions Patient Printed Instructions: Dicyclomine (By mouth) Status ED Status: Left Department Discharge Information Discharge Date/Time: 03/30/18 12:59
[2018-03-30 11:32] VITALS: RESP 19
[2018-03-30 12:48] VITALS: PULSE 83
--- NOTE | 2018-03-30 15:55 | P.PNGI ---
Subjective Interval history: Patient ambulating in room this a.m. Reports no BM today States feels much better Denies abdominal pain nausea or vomiting Physical Exam Vital signs: Vital Signs 03/29/18 16:00 03/29/18 20:00 03/30/18 00:00 Temperature 97.8 F 98.0 F 97.3 F L Pulse Rate 86 79 83 Respiratory Rate 18 20 20 Blood Pressure 99/50 L 100/56 L 103/59 L Pulse Oximetry 98 99 98 03/30/18 04:00 03/30/18 07:39 03/30/18 08:00 Temperature 97.6 F 97.4 F L Pulse Rate 76 85 Respiratory Rate 20 20 19 Blood Pressure 134/58 L 121/69 Pulse Oximetry 100 98 03/30/18 08:10 Temperature Pulse Rate 83 Respiratory Rate Blood Pressure Pulse Oximetry Intake & Output 03/29/18 03/30/18 03/30/18 18:59 06:59 18:59 Intake Total 1600 / 1600 1000 / 1000 Output Total 1250 / 1250 500 / 500 Balance 350 / 350 500 / 500 Weight 65.8 kg Intake: IV 1000 / 1000 1000 / 1000 NS Inj 1,000 ML @ 100 mls/hr IV 1000 / 1000 1000 / 1000 .CONT .Q10H [facility] Rx#:[id number] Oral 600 / 600 Output: Urine 1250 / 1250 500 / 500 Other: Date of Last Bowel Movement 03/28/18 03/28/18 03/28/18 - Constitutional no acute distress - Routine HEENT Exam Head: Present: normocephalic - Routine Respiratory Exam Absent: accessory muscle use - Routine Abdominal Exam Present: soft, normoactive bowel sounds. Absent: tenderness, distended, guarding, firm - Routine Skin Exam Present: dry, warm - Routine Neurological Exam Present: alert, oriented X3 Results - Labs CBC & Chem 7: 03/28/18 04:37 03/30/18 07:10 Laboratory Results - last 24 hr 03/29/18 03/29/18 03/30/18 16:38 20:48 07:10 Sodium 142 Potassium 5.5 H Chloride 116 H Carbon Dioxide 18.9 L Anion Gap 7 BUN 18 Creatinine 1.91 H Estimated GFR 36 L POC Glucose 75 125 H Random Glucose 108 H Calcium 7.6 L Magnesium 1.6 TSH 2.900 Cortisol 03/30/18 03/30/18 07:10 07:14 Sodium Potassium Chloride Carbon Dioxide Anion Gap BUN Creatinine Estimated GFR POC Glucose 115 H Random Glucose Calcium Magnesium TSH Cortisol 16.0 Microbiology 03/27/18 16:45 Blood - Peripheral Aerobic Blood Culture - Preliminary No growth in 3 days 03/27/18 16:45 Blood - Peripheral Anaerobic Blood Culture - Preliminary No growth in 3 days 03/27/18 16:45 Blood - Peripheral Aerobic Blood Culture - Preliminary No growth in 3 days 03/27/18 16:45 Blood - Peripheral Anaerobic Blood Culture - Preliminary No growth in 3 days Assessment and Plan (1) Diarrhea Status: Acute Code(s): R19.7 - Diarrhea, unspecified - Plan This patient is a 62-year-old male with past medical history significant for colon cancer status post resection in 2001. Patient also endorses history of COPD, CHF, diabetes, hypertension, and skin cancers. Patient presented to the emergency room at [facility] with complaint of abdominal pain nausea and diarrhea. Upon consultation, patient states that he has had loose watery green stool for greater than 1 year with lower abdominal sharp pains and cramping. He endorses that he has been hospitalized and treated for C. difficile infection 8 months ago. Patient states his lower abdominal pain is intermittent and he describes it as sharp and radiates throughout lower abdomen. Patient rates pain at 4 out of 10 at this time and states there are no known alleviating or aggravating factors. Last EGD and colonoscopy performed in December 2017 per patient findings of diverticulosis. February 2018 patient states he underwent EGD with dilatation due to a history of esophageal strictures. Patient denies any noted rectal bleeding. States family history positive for mother who had diverticulitis. Patient denies use of tobacco or alcohol products. Patient denies fever or chills but does endorse occasional nausea and headaches. CT on admission showed chronic dilatation of the common duct, no acute findings Persistent diarrhea Patient presents with report of loose watery green colored stool for greater than a year. Reports history of C. difficile for which he which received treatment 8 months ago. Patient reporting lower abdominal cramping with nausea and vomiting. 03/27/2018 CT abdomen and pelvis revealed the following findings-- 1. Chronic dilatation of the common duct. 2. Postsurgical findings at the ileocolic junction. 3. 3 mm nonobstructing calculus in the right kidney unchanged. 4. No acute findings in the abdomen and pelvis. Hemoglobin 11.0 hematocrit 32.6 lipase 336 total bilirubin 0.2 AST 12 ALT 19 alk phos 64 May consider pancreatic insufficiency as cause for recurring diarrhea. 03/29/2018 Persistent diarrhea Patient reports less frequent bowel movements. States he had 2 soft, "like soft serve" BMs this morning. States stools are no longer green in color. Brown without any noted bleeding. No new labs today Stool studies pending, if negative may order quantitative fat in stool to evaluate for possible pancreatic insufficiency 03/30/2018 Diarrhea Patient reports no BM this morning States "I feel much better". States tolerating meals well and agrees to follow-up with GI post discharge Plan -Diet as tolerated -Follow-up with GI in 1 week post discharge -Continue PPI -Bentyl -Supportive care This patient has been seen by myself and Dr. Howell and this note is written on his behalf - Attending Attestation Dr. Howell (1) Diarrhea Qualifiers: Diarrhea type: presumed infectious Qualified Code(s): R19.7 - Diarrhea, unspecified
== END 2018-03-30 12:59 | disposition home or self-care (01) | DRG 392 ==
LOC: NEPC 09:48 → NEDA 17:56 → N05 19:17
PROVIDERS: ADMIT Hospitalist; ATTEND Hospitalist
DX: I50.9 Heart failure, unspecified; K22.70 Barrett's esophagus without dysplasia; I13.0 Hypertensive heart and chronic kidney disease with heart failure and stage 1 through stage 4 chronic kidney disease, or unspecified chronic kidney disease; N20.0 Calculus of kidney; Z79.84 Long term (current) use of oral hypoglycemic drugs; Z91.041 Radiographic dye allergy status; I95.9 Hypotension, unspecified; E87.5 Hyperkalemia; G89.29 Other chronic pain; K64.4 Residual hemorrhoidal skin tags; E11.22 Type 2 diabetes mellitus with diabetic chronic kidney disease; N17.9 Acute kidney failure, unspecified; Z88.5 Allergy status to narcotic agent; Z85.828 Personal history of other malignant neoplasm of skin; Z90.49 Acquired absence of other specified parts of digestive tract; K92.2 Gastrointestinal hemorrhage, unspecified; R19.7 Diarrhea, unspecified; K83.8 Other specified diseases of biliary tract; N18.3 Chronic kidney disease, stage 3 (moderate); J44.9 Chronic obstructive pulmonary disease, unspecified; Z87.891 Personal history of nicotine dependence; Z88.8 Allergy status to other drugs, medicaments and biological substances; N39.0 Urinary tract infection, site not specified; G47.33 Obstructive sleep apnea (adult) (pediatric); K64.8 Other hemorrhoids; E87.2 Acidosis; Z85.038 Personal history of other malignant neoplasm of large intestine; E86.0 Dehydration
CPT/HCPCS: 74176; 80048; 80053; 81001; 82088; 82533; 82948; 82962; 83690; 83735; 84132; 84443; 84484; 85025; 87040; 87205; 87328; 87329; 87493; 87506; 90761; 90765; 90775; 93005; 96361; 96365; 96375; 99285; C9113; J0610; J0692; J1815; J1885; J2405; J7030